=== PATIENT | male | born 1945 | race Caucasian/White ===

== ENCOUNTER → 2016-11-01 | Outpatient (CLI) | payer MEDICARE ==
--- NOTE | 2016-11-01 15:44 | MR ---
EXAMINATION TYPE: MR shoulder RT wo con DATE OF EXAM: 11/01/2016 COMPARISON: NONE HISTORY: unspecified rotator cuff tear, right shoulder pain, lack of motion TECHNIQUE: Multiplanar, multisequence imaging of the right shoulder is performed without contrast. FINDINGS: Exam is suboptimal as is degraded by patient motion artifact. Rotator Cuff: Some increased signal distal supraspinatus and infraspinatus tendons is present without discrete tear. Rotator cuff muscle bulk is preserved. Subscapularis tendon is intact. Acromioclavicular Joint: Acromioclavicular joint is maintained. Distal acromion morphology is preserv ed. Glenohumeral Joint: There is small to moderate-sized glenohumeral joint effusion. Some joint space lo ss is seen. No significant spurring is noted. Labrum: The labrum appears grossly intact given limitation of non-arthrogram study. Biceps Tendon: The long head of biceps is in normal location within bicipital groove. Surrounding flu id may be product of joint effusion. Bone marrow signal: No focal abnormal marrow signal is appreciated. Other: No additional significant abnormality is appreciated. IMPRESSION: Tendinosis of distal supraspinatus and infraspinatus tendons. No full-thickness rotator c uff or labral tear is seen.
== END | disposition home or self-care (01) ==
LOC: RADMRIMAIN 07:35
PROVIDERS: ATTEND Family Medicine
DX: M67.813 Other specified disorders of tendon, right shoulder (principal)

== ENCOUNTER → 2018-01-05 | Outpatient (CLI) | payer MEDICARE ==
[2018-01-05 10:14] LABS: Blood Urea Nitrogen 19 mg/dL (9-20)
--- NOTE | 2018-01-05 11:15 | MR ---
EXAMINATION TYPE: MR brain wo/w con DATE OF EXAM: 01/05/2018 COMPARISON: None HISTORY: Headaches, Hx of prostrate ca in 2012 TECHNIQUE: Multiplanar, multisequence images of the brain and brainstem is performed without and with IV contras t, utilizing 9 mL intravenous Gadavist . FINDINGS: Diffusion weighted images demonstrate no evidence of a recent infarct or other diffusion ab normality. The brain volume is age appropriate. Midline structures demonstrate normal morphology. The craniocervical junction appears within normal limits. Post contrast images demonstrate no abnormal enhancement. The dural venous sinuses appear pa tent. Changes of chronic sinusitis noted with nasal septal deviation. There is mild to moderate generalized degenerative change. Multiple areas of abnormal signal are seen scattered throughout the white matter bilaterally which are nonspecific but most typical of remote m icrovascular ischemia. Single focus of abnormal signal the alondra is nonspecific. No enhancement. Craniocervical junction maintained. Sella turcica has a normal appearance. IMPRESSION: 1. Degenerative and nonspecific white matter changes most typical of remote ischemia. 2. Changes of chronic sinusitis.
== END | disposition home or self-care (01) ==
LOC: RADMRIMAIN 09:41
PROVIDERS: ATTEND Psychiatry & Neurology Neurology
DX: R90.82 White matter disease, unspecified (principal); R51 Headache
CPT/HCPCS: 82565; 84520; 70553; 36415; A9581

== ENCOUNTER → 2019-09-07 | Outpatient (CLI) | payer MEDICARE ==
[2019-09-07 12:36] LABS: African American GFR (CKD) >90 (>60 ml/min/1.73 sqM); Blood Urea Nitrogen 15 mg/dL (9-20); Non-African American GFR(CKD) 87 (>60 ml/min/1.73 sqM)
--- NOTE | 2019-09-07 13:53 | CT ---
EXAMINATION TYPE: CT pelvis w con DATE OF EXAM: 09/07/2019 COMPARISON: 08/01/2014 HISTORY: dysuria, constipation, prostate ca CT DLP: 884.5 mGycm Automated exposure control for dose reduction was used. CONTRAST: CT scan of the pelvis is performed with IV Contrast, patient injected with 100 mL of Isovue 300. FINDINGS- Tiny hypodensity at the lower margin of the spleen is indeterminate due to its small size. Adrenal gl ands normal. Both kidneys demonstrate sub-5 mm hypodensities which are too small to characterize. Lar guero simple appearing renal cysts are seen involving the lower pole of the right kidney. There appear to be increased in size involving the lower pole now measuring 4.5 cm and 18 Hounsfield units compare d to 2.6 cm. Visualized bowel gas pattern nonspecific. Shotty adenopathy is seen in the retroperitoneum and periao rtic region largest lymph node is seen on the left measures a short axis of 5 mm. Aorta of normal mike iber. There does appear to be chronic localized area of eccentric thrombus or chronic dissection unch anged from the prior exam at the level L3-4. No free fluid. There is diffuse bladder wall thickening and there is evidence of prostate metallic se eds. Prostate does appear to be enlarged. Hypertrophic and degenerative changes of the spine. Focal area of sclerosis involving the left iliac bone is stable from prior exam and therefore likely related to bone island. No diagnostic evidence of metastases. Lucency involving the posterior margin the right iliac bone appears to be of gas attenua tion may be related to the adjacent SI joint and arthropathy.. IMPRESSION- 1. Correlate for cystitis with diffuse bladder wall thickening. 2. No pathologic adenopathy or free fluid. Prostate enlargement and metallic seeds are noted. 3. Chronic appearing aortic intimal change at the level L3-L4 could be related to eccentric plaque or a localized tiny area of chronic dissection unchanged from the prior exam of 2014. No evidence of an eurysm.
== END | disposition home or self-care (01) ==
LOC: RADCTMAIN 11:26
PROVIDERS: ATTEND Urology
DX: N40.0 Benign prostatic hyperplasia without lower urinary tract symptoms (principal); C61 Malignant neoplasm of prostate
CPT/HCPCS: 82565; 84520; 72193; 36415; Q9967

== ENCOUNTER → 2019-09-11 | Outpatient (CLI) | payer MEDICARE | END | disposition home or self-care (01) | LOC: LABWHC1 09:06 | PROVIDERS: ATTEND Internal Medicine Gastroenterology | DX: Z11.59 Encounter for screening for other viral diseases (principal) ==

== ENCOUNTER 2019-09-14 08:02 | Day surgery (SDC) | payer MEDICARE ==
[2019-09-13 12:07] VITALS: BMI 33.6
[~2019-09-14 08:02] MED LIST: LACTATED RINGERS 1,000 ML IV SCH
[2019-09-14 08:23] VITALS: RESP 16; TEMP 96.5
[2019-09-14] MEDS ORDERED: LIDOCAINE 1% (10MG/ML) FOR IV START INTRADERMA ONE (08:26)
[2019-09-14] MEDS ORDERED: PROPOFOL 10 MG/ML 20 ML VIAL IV ONE (08:57)
--- NOTE | 2019-09-14 09:14 | P.PCN ---
Date of Procedure: 09/14/19 Procedure(s) Performed: BRIEF HISTORY: Patient is a 73-year-old pleasant white male scheduled for an elective colonoscopy as a part of value should of rectal pain, rectal pressure for the last 6 months duration. Has history of prostate cancer for which she underwent radiation therapy in 2009.He also noticed some change in his bowel habits. He denies any rectal bleeding. PROCEDURE PERFORMED: Colonoscopy. PREOPERATIVE DIAGNOSIS: Rectal pain and rectal pressure of 6 months duration. IV sedation per Anesthesia. PROCEDURE: After informed consent was obtained, the patient, was brought into the endoscopy unit. IV sedation was administered by Anesthesia under continuous monitoring. Digital rectal examination was normal. Initially the Olympus CF-160 flexible video colonoscope was then inserted in the rectum, gradually advanced into the cecum without any difficulty. Careful examination was performed as the scope was gradually being withdrawn. Ileocecal valve and the appendiceal orifice were visualized and appeared normal. Prep was excellent. Mucosa of the cecum, ascending colon, transverse colon, descending colon, sigmoid colon, and rectum appeared normal. Retroflexion was performed in the rectum and small internal hemorrhoids were seen. The patient tolerated the procedure well. IMPRESSION: Normal-appearing colon from rectum to cecum no evidence of colitis or colorectal neoplasia . No evidence of radiation proctitis Small internal hemorrhoids RECOMMENDATIONS: Findings of this examination were discussed with the patient as well as his family. He was advised to be a high-fiber diet and take fiber supplements a regular basis and avoid straining and constipation.
[2019-09-14 09:37] VITALS: BP 118/61; PULSE 78
== END 2019-09-14 09:55 | disposition home or self-care (01) ==
LOC: ORWHC2ENDO 08:02
PROVIDERS: ATTEND Internal Medicine Gastroenterology
DX: K62.89 Other specified diseases of anus and rectum (principal); K64.8 Other hemorrhoids; R19.4 Change in bowel habit; I10 Essential (primary) hypertension; E78.5 Hyperlipidemia, unspecified; E07.9 Disorder of thyroid, unspecified; K21.9 Gastro-esophageal reflux disease without esophagitis; Z85.46 Personal history of malignant neoplasm of prostate; Z92.3 Personal history of irradiation; Z88.2 Allergy status to sulfonamides; Z79.890 Hormone replacement therapy; Z79.899 Other long term (current) drug therapy
CPT/HCPCS: 45378; J2704

== ENCOUNTER → 2020-03-03 | Outpatient (CLI) | payer MEDICARE ==
--- NOTE | 2020-03-04 08:48 | CT ---
EXAMINATION TYPE: CT ChestAbdPelvis w con DATE OF EXAM: 03/03/2020 COMPARISON: 09/07/2019 and 08/08/2015 HISTORY: Abnormal weight loss, 40 lbs in 4 months. Recent suprapubic catheter. Hx prostate ca. CT DLP: 1904 mGycm CONTRAST: CT scan of the chest, abdomen and pelvis is performed with Oral Contrast and with IV Contrast, patien t injected with 100 mL of Isovue 300. CT Chest: LUNGS: The lungs are clear and free of infiltrate or atelectasis. Nodule line noted within the right infrahilar region measures 2.2 cm and requires further evaluation with PET/CT. Additional nodules are identified within the left lower lobe with 2 adjacent pulmonary nodules measuring 1.2 and 1.2 cm res pectively.No additional pulmonary nodules identified. No pleural effusion or CT evidence of interstit ial lung disease. MEDIASTINUM: Anterior mediastinal nodule measures 2.2 cm versus 2.2 cm previously and is unchanged f rom prior study of 08/08/2015. No new nodules are seen. Thoracic aorta is of normal caliber. The hear t is not enlarged. No evidence for mediastinal mass or adenopathy. HILAR STRUCTURES: No evidence for mass. No hilar adenopathy is appreciated. OTHER: No significant abnormality. CONTRAST CT ABDOMEN AND PELVIS FINDINGS: LIVER/GB: No calcified gallstones. No space occupying hepatic lesion. Biliary tree is of normal ca liber. PANCREAS: No inflammation. No distinct mass. SPLEEN: No splenic enlargement. No lesion seen. ADRENALS: No nodule. No thickening. KIDNEYS/BLADDER fullness of the renal collecting systems noted. Renal cystic changes lower pole right kidney unchanged. There is wall thickening of the urinary bladder. Suprapubic catheter is in place. Underlying infection is difficult to exclude. BOWEL: Normal appendix. Normal bowel caliber. No inflammation. GENITAL ORGANS: Prostate seeds are noted to be in place. There is soft tissue mass noted along the un dersurface of the prostate bed measuring 4.8 x 5.0 x 4.0 cm. Tumor recurrence is difficult to exclude . LYMPH NODES: No greater than 1cm abdominal or pelvic lymph nodes are appreciated. AORTA: No significant abnormality. OSSEOUS STRUCTURES: No significant abnormality is seen. OTHER: No significant additional abnormality is seen. IMPRESSION: 1. Along the undersurface of the prostate bed there is new soft tissue mass which is suspicious for t umor 2. There is a nodule within the right infrahilar region which is suspicious for metastatic disease. A dditional nodules are identified within the left lower lobe with 2 adjacent pulmonary nodules measuri ng 1.2 and 1.2 cm respectively. 3. Diffuse urinary bladder wall thickening. Correlate for underlying cystitis. Suprapubic catheter i s in place.
== END | disposition home or self-care (01) ==
LOC: RADCTMAIN 14:33
PROVIDERS: ATTEND Internal Medicine Hematology & Oncology
DX: R91.8 Other nonspecific abnormal finding of lung field (principal); N42.89 Other specified disorders of prostate; N32.89 Other specified disorders of bladder; Z88.2 Allergy status to sulfonamides
CPT/HCPCS: 82565; 84520; 71260; 74177; 36415; Q9967

== ENCOUNTER → 2020-03-07 | Outpatient (CLI) | payer MEDICARE ==
--- NOTE | 2020-03-10 10:41 | PE ---
EXAMINATION TYPE: PET CT fusion skull to thigh DATE OF EXAM: 03/07/2020 COMPARISON: CT March 03, 2020 and older CTs. HISTORY: Abnormal CT, solitary pulmonary nodule. History of prostate cancer diagnosed June 2011. TECHNIQUE: Following the intravenous administration of 11.45 mCi of F-18 FDG, whole body images are performed from the skull base to the midthigh. Images are reviewed on the computer in the coronal, a xial, and sagittal planes. Reconstructed rotating images are created on independent workstation and reviewed on the computer. A noncontrast CT is performed in conjunction with the PET scan. SCAN: Initial Scan FINDINGS: SKULL BASE AND NECK: Focus of hypermetabolic uptake central anterior teeth presumed benign or physio logic but should be correlated with direct physical exam at level of incisors. No additional area of abnormal hypermetabolic uptake. CHEST, MEDIASTINUM, AND HILAR REGION: There is persistent 2.7 x 2.2 cm central right lower lobe nodul e axial image 102, mild hypermetabolic uptake, max SUV is 3.64. There are redemonstration of 2 additional smaller adjacent 1.1 cm left basilar nodules axial image 10 6, these are noted ametabolic. No additional areas of suspicious nodules or hypermetabolic uptake. No abnormal adenopathy. ABDOMEN AND PELVIS: Normal urinary excretion is seen. There is subsequent extension into the suprapub ic ostomy bag also. No suspicious hypermetabolic uptake. No adrenal masses noted. OSSEOUS STRUCTURES: No suspicious hypermetabolic uptake. OTHER CT: Coronary artery calcification is redemonstrated which is noted marker for underlying zaldivar ry artery disease. Some simple appearing thin-walled cyst lower pole of the right kidney redemonstrated measuring near 3 cm in size. Numerous brachytherapy seeds from prostate gland cancer treatment are redemonstrated. Bladder shows m oderate wall thickening and mild to moderate fat stranding similar to prior. IMPRESSION: Suspicious hypermetabolic uptake in the central right lower lobe nodule, neoplasm cannot be excluded. No thoracic adenopathy or metastatic disease seen.
== END | disposition home or self-care (01) ==
LOC: RADPETMAIN 07:58
PROVIDERS: ATTEND Internal Medicine Hematology & Oncology
DX: R91.1 Solitary pulmonary nodule (principal)
CPT/HCPCS: 78815; A9552

== ENCOUNTER 2020-03-24 09:44 | Day surgery (SDC) | payer MEDICARE ==
[2020-03-24 10:41] VITALS: TEMP 97.8
[2020-03-24] MEDS ORDERED: LACTATED RINGERS 1,000 ML IV ONE (10:44)
[2020-03-24] MEDS ORDERED: PROPOFOL 10 MG/ML 20 ML VIAL IV ONE (12:42)
--- NOTE | 2020-03-24 13:02 | P.PCN ---
Date of Procedure: 03/24/20 Procedure(s) Performed: BRIEF HISTORY: Patient is a 74-year-old pleasant male scheduled for an elective sigmoidoscopy as a part of evaluation of severe rectal pain and rectal bleeding and constipation and rectal mass noted on physical examination last week. The patient had a CT of the abdomen and pelvis done that revealed a 5 x 6 cm mass on the undersurface of the prostate. He had a colonoscopy 6 months ago that was unremarkable. PROCEDURE PERFORMED: Flexible sigmoidoscopy with biopsy and snare polypectomy PREOPERATIVE DIAGNOSIS: Rectal Pain/rectal mass. IV sedation per Anesthesia. PROCEDURE: After informed consent was obtained, the patient, was brought into the endoscopy unit. IV sedation was administered by Anesthesia under continuous monitoring. Digital rectal examination revealed an anterior hard rectal mass just proximal to the dentate line.. Initially the Olympus CF-160 flexible video colonoscope was then inserted in the rectum, gradually advanced into the transverse colon without any difficulty. Careful examination was performed as the scope was gradually being withdrawn. Splenic flexure appeared normal. In the proximal descending colon there was a 5 limited polyp that was removed by snare polypectomy., descending colon, sigmoid colon appeared normal. in the distal rectum there was a 3-4 cm mass along the anterior wall of the rectum with the central ulceration and multiple biopsies were done from this area. It appeared as if it was an extrinsic mass that ulcerated into the rectum. Retroflexi Could not be performed. The patient tolerated the procedure well. IMPRESSION: Distal anterior 3-4 cm rectal mass with deep central ulceration with an appearance of extrinsic mass infiltrating into the rectum status post multiple biopsies 5 mm descending colon polyp status post polypectomy RECOMMENDATIONS: Findings of this examination were discussed with the patient as well as his family. Will await the biopsy results and he'll be seen in office in 3-4 days..
[2020-03-24 13:07] VITALS: RESP 16
[2020-03-24 13:30] VITALS: BP 121/61; PULSE 85
[2020-03-24] MEDS ORDERED: LIDOCAINE 1% (10MG/ML) FOR IV START INTRADERMA PRN (13:33)
[2020-03-24] MEDS ORDERED: LACTATED RINGERS 1,000 ML IV SCH (13:33)
== END 2020-03-24 14:20 | disposition home or self-care (01) ==
LOC: ORWHC2ENDO 09:44
PROVIDERS: ATTEND Internal Medicine Gastroenterology
DX: C78.5 Secondary malignant neoplasm of large intestine and rectum (principal); K63.3 Ulcer of intestine; K59.00 Constipation, unspecified; I10 Essential (primary) hypertension; E78.5 Hyperlipidemia, unspecified; E07.9 Disorder of thyroid, unspecified; Z85.46 Personal history of malignant neoplasm of prostate; Z88.2 Allergy status to sulfonamides; Z79.899 Other long term (current) drug therapy; Z79.890 Hormone replacement therapy; Z98.890 Other specified postprocedural states
CPT/HCPCS: 45385; 45380; 88305; 88342; 88341; J2704; 45330; 45331

== ENCOUNTER → 2020-04-15 | Outpatient (CLI) | payer MEDICARE ==
--- NOTE | 2020-04-15 17:33 | ECHOF ---
Referral Reason:[id number] Pre chemo exposure MEASUREMENTS -------- HEIGHT: 167.6 cm WEIGHT: 88.0 kg BP: 128/59 IVSd: 1.3 cm (0.6 - 1.1) LVIDd: 3.2 cm (3.9 - 5.3) LVPWd: 1.2 cm (0.6 - 1.1) IVSs: 1.9 cm LVIDs: 1.5 cm LVPWs: 1.6 cm LAESV Index (A-L): 15.77 ml/m Ao Diam: 2.5 cm (2.0 - 3.7) AV Cusp: 1.2 cm (1.5 - 2.6) LA Diam: 2.8 cm (2.7 - 3.8) MV EXCURSION: 17.007 mm (> 18.000) MV EF SLOPE: 69 mm/s (70 - 150) EPSS: 1.3 cm MV E Boo: 0.72 m/s MV DecT: 184 ms MV A Boo: 1.11 m/s MV E/A Ratio: 0.65 AV maxP.93 mmHg AV meanP.23 mmHg RAP: 5.00 mmHg RVSP: 32.11 mmHg FINDINGS -------- This was a technically difficult study with suboptimal views. The left ventricular size is normal. There is moderate concentric left ventricular hypertrophy. O verall left ventricular systolic function is normal with, an EF between 55 - 60 %. The diastolic fi lling pattern is normal for the age of the patient 12.46. The right ventricle is normal in size. The left atrial size is normal. Normal LA size by volume 22+/-6 ml/m2. The right atrial size is normal. Lumason used Aortic valve is trileaflet and is moderately thickened. There is moderate aortic stenosis present. Peak/mean gradient across the Aortic Valve is 54.93mmHg / 33.23mmHg. The mitral valve is normal. There is trace mitral regurgitation. The tricuspid valve appears structurally normal. Trace tricuspid regurgitation present. Right iveth tricular systolic pressure is normal at < 35 mmHg. There is no pulmonic regurgitation present. The aortic root size is normal. IVC Not well visulized. There is no pericardial effusion. CONCLUSIONS -------- 1. The left ventricular size is normal. 2. There is moderate concentric left ventricular hypertrophy. 3. Overall left ventricular systolic function is normal with, an EF between 55 - 60 %. 4. The diastolic filling pattern is normal for the age of the patient 12.46 5. Aortic valve is trileaflet and is moderately thickened. 6. There is moderate aortic stenosis present. 7. Peak/mean gradient across the Aortic Valve is 54.93mmHg / 33.23mmHg. 8. There is trace mitral regurgitation. 9. Trace tricuspid regurgitation present. 10. There is no pericardial effusion. ACUPRESSURE THERAPIST: Kayy Morley RDCS
== END | disposition home or self-care (01) ==
LOC: RADECHMAIN 13:46
PROVIDERS: ATTEND Internal Medicine Hematology & Oncology
DX: Z01.818 Encounter for other preprocedural examination (principal); I06.8 Other rheumatic aortic valve diseases; I06.0 Rheumatic aortic stenosis; Z88.2 Allergy status to sulfonamides
CPT/HCPCS: C8929; Q9950; 93306

== ENCOUNTER → 2020-04-17 | Day surgery (SDC) | payer MEDICARE ==
[2020-04-10 10:13] VITALS: BMI 29.7
[~2020-04-17] MED LIST changes: +ALBUTEROL NEB (CONC) 2.5 MG/0.5 ML INHALATION ONE; +LIDOCAINE 1% INJ 10MG/ML (20 ML MDV) ONE; +LIDOCAINE 2% (PF) 20 MG/ML 5 ML VIAL INHALATION ONE; +LIDOCAINE VISCOUS 300 MG/15 ML CUP MUCOUS MEM ONE; +PROPOFOL 10 MG/ML 20 ML VIAL IV ONE; +Pre Op ABX Message 1 EACH MISC MISCELLANE ONE; +SODIUM CHLORIDE 0.9% 1,000 ML IV SCH; +SUCCINYLCHOLINE CHLORIDE 100 MG/5 ML SYR IV ONE
--- NOTE | 2020-04-17 12:40 | CT ---
EXAMINATION TYPE: CT Chest dami Chua Protocol DATE OF EXAM: 04/17/2020 COMPARISON: 03/07/2020 HISTORY: Bronchial navigation. CT DLP: 585 mGycm Automated exposure control for dose reduction was used. FINDINGS: LUNGS: The lungs are clear and free of infiltrate or atelectasis. Nodule noted within the right infra hilar region and is stable. Additional nodules are identified within the left lower lobe with 2 adjac ent pulmonary nodules measuring 1.2 and 1.2 cm respectively.No additional pulmonary nodules identifie d. No pleural effusion or CT evidence of interstitial lung disease. MEDIASTINUM: Anterior mediastinal nodule measures 2.2 cm versus 2.2 cm previously and is unchanged fr om prior study of 08/08/2015. No new nodules are seen. Thoracic aorta is of normal caliber. The heart is not enlarged. Atherosclerotic change of the aorta and coronary arteries correlate clinically. HILAR STRUCTURES: No evidence for mass. No hilar adenopathy is appreciated. OTHER: Hypertrophic and degenerative changes of the spine IMPRESSION: 1. Stable pulmonary nodules.
--- NOTE | 2020-04-17 13:30 | P.PCN ---
Date of Procedure: 04/17/20 Preoperative Diagnosis: Right lower lobe nodule Postoperative Diagnosis: same Procedure(s) Performed: Navigational bronchoscopy, transbronchial biopsy of the right lower lobe pulmonary nodule, chest prior to brushing of the right lower lobe pulmonary nodule Anesthesia: JESUSA Surgeon: Dave Cooney Pathology: none sent Condition: stable Disposition: floor Operative Findings: This procedure was done in the operating room. The patient was intubated and placed on a mechanical ventilator. Intubation process was done by FURNACE STOCK INSPECTOR the bedside. The patient has a computed tomography scan of the chest preoperatively using the Veran protocol. The images without loaded into the system and the right lower lobe pulmonary artery was identified and was managed appropriately. All of this information was transferred to a USB and following that into the system Postintubation, the procedure was initiated. The flexible bronchoscope was introduced and orotracheal tube and the procedure was completed as the patient was being adequately oxygenated a mechanical ventilator. The airway inspection was done. Distal trachea, main lucina and bilateral mainstem bronchi were within normal limits. The right upper lobe bronchus was within normal limits. Right middle lobe bronchus was within normal limits. Right lower lobe bronchus was then inspected and the various segments of the right lower lobe were seen and visualized. The medial basilar segment was quite narrowed and inflamed. Nevertheless, there was no endobronchial tumor identified in that involved segment. Examination of the left that included left upper lobe bronchus. Left lower lobe bronchus, lingular segment and all of these airways were patent and within normal limits. Under navigational guidance, the flexible bronchoscope was advanced to the right lower lobe and transrectal biopsy of the right lower lobe pulmonary nodule was done through the medial basilar segment. The nodule was approached and biopsied great accuracy and based on our navigational guidance, fluid and sided nodule at the time of the biopsy. Endobronchial brush ings of the right lower lobe pulmonary was also done using navigational guidance. The procedure was completed. Bronchoscope was removed and the patient was extubated and transferred to recovery in stable condition. The chest x-rays to follow. Biopsy results are to follow. The patient will be discharged once cleared by anesthesia. No endobronchial bleeding. Estimated blood loss was less than 0 mL.
[2020-04-17 14:00] VITALS: TEMP 98
--- NOTE | 2020-04-17 14:18 | XR ---
EXAMINATION TYPE: XR chest 1V portable DATE OF EXAM: 04/17/2020 COMPARISON: 11/14/2014 INDICATION: Postop right lung biopsy TECHNIQUE: Single frontal view of the chest is obtained. FINDINGS: The heart size is normal. The pulmonary vasculature is normal. There is a left lower lobe infiltrate. Mild stranding extends into the right suprahilar region No pne umothorax is evident post bronchoscopy. IMPRESSION: 1. Left lower lobe and right apical stranding. Correlate for infiltrate. 2. No pneumothorax post bronchoscopy biopsy.
[2020-04-17 14:35] VITALS: RESP 17
[2020-04-17 14:41] VITALS: BP 160/82; PULSE 86
== END | disposition home or self-care (01) ==
LOC: ORWHC2ENDO 09:45
PROVIDERS: ATTEND Internal Medicine Critical Care Medicine
DX: D64.89 Other specified anemias (principal); R59.1 Generalized enlarged lymph nodes; K62.9 Disease of anus and rectum, unspecified; E55.9 Vitamin D deficiency, unspecified; E03.9 Hypothyroidism, unspecified; E78.5 Hyperlipidemia, unspecified; I10 Essential (primary) hypertension; C61 Malignant neoplasm of prostate; Z82.49 Family history of ischemic heart disease and other diseases of the circulatory system; Z83.42 Family history of familial hypercholesterolemia; Z90.89 Acquired absence of other organs; Z98.890 Other specified postprocedural states; Z79.890 Hormone replacement therapy; Z79.899 Other long term (current) drug therapy; Z88.2 Allergy status to sulfonamides
CPT/HCPCS: 88104; 88305; 88173; 88342; 88341; 71045; 71250; 31628; 31623; 31627; J2001; J0330; J2704; 31625; 31629

== ENCOUNTER 2020-04-30 19:20 | Emergency (ER) | payer MEDICARE ==
[2020-04-30 19:54] VITALS: TEMP 97.4
--- NOTE | 2020-04-30 21:44 | ED ---
Male Urogenital HPI - General Chief complaint: Urogenital Stated complaint: Catheter Issue Time Seen by Provider: 04/30/20 20:33 Source: patient, family Mode of arrival: ambulatory - History of Present Illness Initial comments: Patient is a 74-year-old male presenting to the emergency Department with complaints of his catheter not draining. Patient states he had a suprapubic c atheter placed in February secondary to being treated for bladder cancer. Patient's urologist is Dr. Hardy, and oncologist is Dr. Wen. Patient states over the past 24 hours he does not believe his catheter is draining and he is having some drainage from his urethra. Patient states that is normal for him to have blood in his urine and passing a few clots. Patient denies any fever or chills, no significant abdominal pain, some mild pressure present. He denies any chest pain or short of breath. He has no further complaints at this time. - Related Data Home Medications Medication Instructions Recorded Confirmed Levothyroxine Sodium 125 mcg PO QAM 11/15/14 04/10/20 Metoprolol Tartrate 25 mg PO 1800 11/15/14 04/17/20 Multivitamin [Men's Multi-Vitamin] 1 tab PO DAILY 11/15/14 04/10/20 Cholecalciferol [Vitamin D3] 6,000 unit PO DAILY 12/30/15 04/10/20 Fish Oil/Dha/Epa [Fish Oil 1,200 1 tab PO DAILY 12/30/15 04/10/20 mg Fish Oil] Rosuvastatin Calcium [Crestor] 10 mg PO HS 12/30/15 04/10/20 lisinopriL [Zestril] 10 mg PO PC-LUNCH 12/30/15 04/10/20 Isosorbide Mononitrate [Isosorbide 30 mg PO QAM 09/13/19 04/10/20 Mononitrate ER] Sennosides [Senna] 8.6 mg PO DAILY 04/10/20 04/10/20 polyethylene glycoL 3350 [Miralax] 17 gm PO DAILY 04/10/20 04/10/20 Allergies Allergy/AdvReac Type Severity Reaction Status Date / Time Sulfa (Sulfonamide Allergy Itching/marko Verified 04/30/20 19:54 Antibiotics) h Review of Systems ROS Statement: Those systems with pertinent positive or pertinent negative responses have been documented in the HPI. ROS Other: All systems not noted in ROS Statement are negative. Past Medical History Past Medical History: Cancer, Hyperlipidemia, Hypertension, Thyroid Disorder Additional Past Medical History / Comment(s): PROSTATE CANCER WITH SEED IMPLANTS (07/06/2011), LOW THYROID, ANEMIA, HEMORRHOIDS, constipation. 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 suprapubic catheter placed Feb 19, 2020 History of Any Multi-Drug Resistant Organisms: None Reported Past Surgical History: Heart Catheterization Additional Past Surgical History / Comment(s): PROSTATE SEED IMPLANTS, COLONOSCOPY. Past Anesthesia/Blood Transfusion Reactions: No Reported Reaction, Motion Sickness Past Psychological History: No Psychological Hx Reported Smoking Status: Never smoker Past Alcohol Use History: Occasional Past Drug Use History: None Reported - Past Family History Mother Family Medical History: Hypertension Sister(s) Family Medical History: Cancer General Exam - General Exam Comments Initial Comments: GENERAL: Patient is well-developed and well-nourished. Patient is nontoxic and in no acute distress. HEAD: Atraumatic, normocephalic. EYES: Pupils equal round and reactive to light, extraocular movements intact, sclera anicteric, conjunctiva are normal. Eyelids were unremarkable. ENT: TMs normal, nares patent, oropharynx clear without exudates. Moist mucous membranes. NECK: Normal range of motion, supple without lymphadenopathy or JVD. LUNGS: Unlabored respirations. Breath sounds clear to auscultation bilaterally and equal. No wheezes rales or rhonchi. HEART: Regular rate and rhythm without murmurs, rubs or gallops. ABDOMEN: Soft, nontender, normoactive bowel sounds. No guarding, no rebound. No masses appreciated. : Suprapubic catheter in place, no signs of infection. Patient seems to be having some drainage through his urethra as well. MUSCULOSKELETAL: Normal extremities with adequate strength and normal range of motion, no pitting or edema. No clubbing or cyanosis. NEUROLOGICAL: Patient is alert and oriented x 3. Motor and sensory are also intact. Cranial nerves II through XII grossly intact. Symmetrical smile. Normal speech, normal gait. PSYCH: Normal mood, normal affect. SKIN: Warm, Dry, normal turgor, no rashes or lesions noted. Course Vital Signs 04/30/20 04/30/20 19:38 21:58 Temperature 97.4 F L Pulse Rate 101 H 89 Respiratory 20 17 Rate Blood Pressure 162/74 151/70 O2 Sat by Pulse 64 L 97 Oximetry Medical Decision Making - Medical Decision Making Patient is a 74-year-old male here for his suprapubic catheter not draining and leakage through his urethra. No fevers or chills, no pain. We were able to flush the catheter, multiple small clots were present. Patient's catheter is draining as normal now. He is stable for discharge. He'll follow-up with his urologist. Patient is in agreement with this plan and care. Disposition Clinical Impression: Suprapubic catheter dysfunction Disposition: HOME SELF-CARE Condition: Stable Instructions (If sedation given, give patient instructions): How to Care for Your Suprapubic Catheter (DC) Additional Instructions: Please return to the Emergency Department if symptoms worsen or any other concerns. Please follow up with urologist as discussed. Is patient prescribed a controlled substance at d/c from ED?: No Referrals: Satish Alcala DO [Primary Care Provider] - 1-2 days Grover Hardy MD [STAFF PHYSICIAN] - 1-2 days
[2020-04-30 22:01] VITALS: BP 151/70; PULSE 89; RESP 17
== END 2020-04-30 21:58 | disposition home or self-care (01) ==
LOC: EC 19:20
DX: T83.198A Other mechanical complication of other urinary devices and implants, initial encounter (principal); C67.9 Malignant neoplasm of bladder, unspecified; E78.5 Hyperlipidemia, unspecified; I10 Essential (primary) hypertension; E07.9 Disorder of thyroid, unspecified; Z79.899 Other long term (current) drug therapy; Z79.890 Hormone replacement therapy; Z88.2 Allergy status to sulfonamides; Z85.46 Personal history of malignant neoplasm of prostate
CPT/HCPCS: 99283

== ENCOUNTER 2020-06-03 12:20 | Emergency (ER) | payer MEDICARE ==
[2020-06-03 12:48] VITALS: TEMP 98.8
[2020-06-03] MEDS ORDERED: SODIUM CHLORIDE 0.9% 1,000 ML IV STA (13:41)
[2020-06-03] MEDS ORDERED: ACETAMINOPHEN TAB 500 MG TAB PO STA (13:41)
--- NOTE | 2020-06-03 13:52 | ED ---
General Adult HPI - General Chief complaint: Abdominal Pain Stated complaint: intestinal pain, sent from Dr nunez Time Seen by Provider: 06/03/20 13:35 Source: patient, family, RN notes reviewed, old records reviewed Mode of arrival: wheelchair Limitations: no limitations - History of Present Illness Initial comments: 74-year-old male presenting for evaluation of weakness, dehydration and diarrhea. Patient was sent in from the oncologist office. 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 He reports fever and chills as well as chronic diarrhea. He has been using Lomotil with minimal improvement. He reports generalized abdominal pain. No cough no dyspnea. No chest pain. He has a poor appetite. No vomiting. He does have remote history of prostate cancer. - Related Data Home Medications Medication Instructions Recorded Confirmed Levothyroxine Sodium 125 mcg PO QAM 11/15/14 04/10/20 Metoprolol Tartrate 25 mg PO 1800 11/15/14 04/17/20 Multivitamin [Men's Multi-Vitamin] 1 tab PO DAILY 11/15/14 04/10/20 Cholecalciferol [Vitamin D3] 6,000 unit PO DAILY 12/30/15 04/10/20 Fish Oil/Dha/Epa [Fish Oil 1,200 1 tab PO DAILY 12/30/15 04/10/20 mg Fish Oil] Rosuvastatin Calcium [Crestor] 10 mg PO HS 12/30/15 04/10/20 lisinopriL [Zestril] 10 mg PO PC-LUNCH 12/30/15 04/10/20 Isosorbide Mononitrate [Isosorbide 30 mg PO QAM 09/13/19 04/10/20 Mononitrate ER] Sennosides [Senna] 8.6 mg PO DAILY 04/10/20 04/10/20 polyethylene glycoL 3350 [Miralax] 17 gm PO DAILY 04/10/20 04/10/20 Allergies Allergy/AdvReac Type Severity Reaction Status Date / Time Sulfa (Sulfonamide Allergy Itching/marko Verified 06/03/20 12:43 Antibiotics) h Review of Systems ROS Statement: Those systems with pertinent positive or pertinent negative responses have been documented in the HPI. ROS Other: All systems not noted in ROS Statement are negative. Past Medical History Past Medical History: Cancer, Hyperlipidemia, Hypertension, Thyroid Disorder Additional Past Medical History / Comment(s): PROSTATE CANCER WITH SEED IMPLANTS (07/06/2011), LOW THYROID, ANEMIA, HEMORRHOIDS, constipation. 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 suprapubic catheter placed Feb 19, 2020 History of Any Multi-Drug Resistant Organisms: None Reported Past Surgical History: Heart Catheterization Additional Past Surgical History / Comment(s): PROSTATE SEED IMPLANTS, COLONOSCOPY. Past Anesthesia/Blood Transfusion Reactions: No Reported Reaction, Motion Sickness Past Psychological History: No Psychological Hx Reported Smoking Status: Never smoker Past Alcohol Use History: Occasional Past Drug Use History: None Reported - Past Family History Mother Family Medical History: Hypertension Sister(s) Family Medical History: Cancer General Exam Limitations: no limitations General appearance: alert, lethargic Head exam: Present: atraumatic, normocephalic Eye exam: Present: normal appearance, PERRL ENT exam: Present: mucous membranes dry Neck exam: Present: normal inspection. Absent: tenderness, meningismus Respiratory exam: Present: normal lung sounds bilaterally. Absent: respiratory distress, wheezes Cardiovascular Exam: Present: normal rhythm, tachycardia GI/Abdominal exam: Present: soft, distended, tenderness, other (Suprapubic catheter). Absent: guarding, rebound exam: Present: scrotal swelling, other (Fullness in the perineum and scrotum, no erythema) Extremities exam: Present: normal inspection, normal capillary refill Neurological exam: Present: alert, oriented X3, CN II-XII intact. Absent: motor sensory deficit Psychiatric exam: Present: normal affect, normal mood Skin exam: Present: warm, dry, intact, pallor. Absent: cyanosis, diaphoretic Course Vital Signs 06/03/20 06/03/20 06/03/20 12:43 14:20 15:09 Temperature 98.8 F Pulse Rate 110 H 115 H 103 H Respiratory 18 20 18 Rate Blood Pressure 103/55 132/67 113/69 O2 Sat by Pulse 100 95 97 Oximetry 06/03/20 15:59 Temperature Pulse Rate 97 Respiratory 18 Rate Blood Pressure 115/52 O2 Sat by Pulse 97 Oximetry Medical Decision Making - Medical Decision Making 74-year-old male with remote history of prostate cancer, current bladder cancer presenting with generalized abdominal Pain, weakness. Patient is evaluated, appears pale, he has shaking chills, his abdomen is distended, tender to palpation. Workup is initiated, he has a profound leukocytosis, 22,000, he has a hemoglobin 6.9 which is transfused. He has a lactic acid of 4.2. CT is performed which shows concern for erosion of the rectum and prostate with fecal material extending into the scrotum and perineum with emphysema changes. He started on broad-spectrum antibiotics including Zosyn, vancomycin, and clindamycin. He is transfused one unit of packed RBCs. As well as 2 L of IV hydration. His blood pressure and heart rate improved, he is hemodynamically stable. I did discuss case with Dr. Beckford, covering for urology who recommends transfer to higher level of care. I discussed case with Lar[facility] for oncology who agrees with transfer. I discussed case with ER physician at [facility] in [place], Dr. Campbell thayer, she does except transfer. - Lab Data Result diagrams: 06/03/20 14:13 06/03/20 14:13 Lab Results 06/03/20 06/03/20 06/03/20 Range/Units 13:41 14:13 14:13 WBC 22.0 H (3.8-10.6) k/uL RBC 2.82 L (4.30-5.90) m/uL Hgb 6.9 L* (13.0-17.5) gm/dL Hct 22.3 L (39.0-53.0) % MCV 79.2 L (80.0-100.0) fL MCH 24.3 L (25.0-35.0) pg MCHC 30.7 L (31.0-37.0) g/dL RDW 17.5 H (11.5-15.5) % Plt Count 560 H (150-450) k/uL MPV 7.4 Neutrophils % (Manual) 71 % Band Neuts % (Manual) 14 % Lymphocytes % (Manual) 8 % Monocytes % (Manual) 3 % Metamyelocytes % 2 % Myelocytes % 3 % Neutrophils # (Manual) 18.70 H (1.3-7.7) k/uL Lymphocytes # (Manual) 1.76 (1.0-4.8) k/uL Monocytes # (Manual) 0.66 (0-1.0) k/uL Metamyelocytes # (Man) 0.44 H (0) k/uL Myelocytes # (Manual) 0.66 H (0) k/uL Nucleated RBCs 0 (0-0) /100 WBC Manual Slide Review Performed Toxic Granulation Present Hypochromasia Slight Poikilocytosis (manual Present Anisocytosis Slight Microcytosis Slight PT 9.7 (9.0-12.0) sec INR 0.9 (<1.2) APTT 21.6 L (22.0-30.0) sec Sodium (137-145) mmol/L Potassium (3.5-5.1) mmol/L Chloride (98-107) mmol/L Carbon Dioxide (22-30) mmol/L Anion Gap mmol/L BUN (9-20) mg/dL Creatinine (0.66-1.25) mg/dL Est GFR (CKD-EPI)AfAm (>60 ml/min/1.73 sqM) Est GFR (CKD-EPI)NonAf (>60 ml/min/1.73 sqM) Glucose (74-99) mg/dL Plasma Lactic Acid Bennie (0.7-2.0) mmol/L Calcium (8.4-10.2) mg/dL Total Bilirubin (0.2-1.3) mg/dL AST (17-59) U/L ALT (4-49) U/L Alkaline Phosphatase (38-126) U/L Total Protein (6.3-8.2) g/dL Albumin (3.5-5.0) g/dL Amylase (30-110) U/L Lipase (23-300) U/L C. difficile (EIA) Intrp (Negative) Coronavirus (PCR) Not Detected (Not Detectd) Blood Type Recheck Bld Type Recheck Status Spec Expiration Date 06/03/20 06/03/20 06/03/20 Range/Units 14:13 14:13 14:13 WBC (3.8-10.6) k/uL RBC (4.30-5.90) m/uL Hgb (13.0-17.5) gm/dL Hct (39.0-53.0) % MCV (80.0-100.0) fL MCH (25.0-35.0) pg MCHC (31.0-37.0) g/dL RDW (11.5-15.5) % Plt Count (150-450) k/uL MPV Neutrophils % (Manual) % Band Neuts % (Manual) % Lymphocytes % (Manual) % Monocytes % (Manual) % Metamyelocytes % % Myelocytes % % Neutrophils # (Manual) (1.3-7.7) k/uL Lymphocytes # (Manual) (1.0-4.8) k/uL Monocytes # (Manual) (0-1.0) k/uL Metamyelocytes # (Man) (0) k/uL Myelocytes # (Manual) (0) k/uL Nucleated RBCs (0-0) /100 WBC Manual Slide Review Toxic Granulation Hypochromasia Poikilocytosis (manual Anisocytosis Microcytosis PT (9.0-12.0) sec INR (<1.2) APTT (22.0-30.0) sec Sodium 134 L (137-145) mmol/L Potassium 5.2 H (3.5-5.1) mmol/L Chloride 100 (98-107) mmol/L Carbon Dioxide 21 L (22-30) mmol/L Anion Gap 13 mmol/L BUN 30 H (9-20) mg/dL Creatinine 1.61 H (0.66-1.25) mg/dL Est GFR (CKD-EPI)AfAm 49 (>60 ml/min/1.73 sqM) Est GFR (CKD-EPI)NonAf 42 (>60 ml/min/1.73 sqM) Glucose 126 H (74-99) mg/dL Plasma Lactic Acid Bennie 4.2 H* (0.7-2.0) mmol/L Calcium 8.2 L (8.4-10.2) mg/dL Total Bilirubin 0.4 (0.2-1.3) mg/dL AST 36 (17-59) U/L ALT 33 (4-49) U/L Alkaline Phosphatase 203 H (38-126) U/L Total Protein 5.9 L (6.3-8.2) g/dL Albumin 2.7 L (3.5-5.0) g/dL Amylase 39 (30-110) U/L Lipase 28 (23-300) U/L C. difficile (EIA) Intrp Negative (Negative) Coronavirus (PCR) (Not Detectd) Blood Type Recheck Bld Type Recheck Status Spec Expiration Date 06/03/20 Range/Units 15:55 WBC (3.8-10.6) k/uL RBC (4.30-5.90) m/uL Hgb (13.0-17.5) gm/dL Hct (39.0-53.0) % MCV (80.0-100.0) fL MCH (25.0-35.0) pg MCHC (31.0-37.0) g/dL RDW (11.5-15.5) % Plt Count (150-450) k/uL MPV Neutrophils % (Manual) % Band Neuts % (Manual) % Lymphocytes % (Manual) % Monocytes % (Manual) % Metamyelocytes % % Myelocytes % % Neutrophils # (Manual) (1.3-7.7) k/uL Lymphocytes # (Manual) (1.0-4.8) k/uL Monocytes # (Manual) (0-1.0) k/uL Metamyelocytes # (Man) (0) k/uL Myelocytes # (Manual) (0) k/uL Nucleated RBCs (0-0) /100 WBC Manual Slide Review Toxic Granulation Hypochromasia Poikilocytosis (manual Anisocytosis Microcytosis PT (9.0-12.0) sec INR (<1.2) APTT (22.0-30.0) sec Sodium (137-145) mmol/L Potassium (3.5-5.1) mmol/L Chloride (98-107) mmol/L Carbon Dioxide (22-30) mmol/L Anion Gap mmol/L BUN (9-20) mg/dL Creatinine (0.66-1.25) mg/dL Est GFR (CKD-EPI)AfAm (>60 ml/min/1.73 sqM) Est GFR (CKD-EPI)NonAf (>60 ml/min/1.73 sqM) Glucose (74-99) mg/dL Plasma Lactic Acid Bennie (0.7-2.0) mmol/L Calcium (8.4-10.2) mg/dL Total Bilirubin (0.2-1.3) mg/dL AST (17-59) U/L ALT (4-49) U/L Alkaline Phosphatase (38-126) U/L Total Protein (6.3-8.2) g/dL Albumin (3.5-5.0) g/dL Amylase (30-110) U/L Lipase (23-300) U/L C. difficile (EIA) Intrp (Negative) Coronavirus (PCR) (Not Detectd) Blood Type Recheck No Previous Record Bld Type Recheck Status CABO Indicated Spec Expiration Date 06/06/2020 - 2354 Disposition Clinical Impression: Bladder cancer, Sepsis, Abscess of perineum Disposition: OTHER INSTITUTION NOT DEFINED Condition: Serious Is patient prescribed a controlled substance at d/c from ED?: No Referrals: Satish Alcala DO [Primary Care Provider] - 1-2 days Time of Disposition: 16:08 - Out of Hospital Transfer - Req. Specs Out of Hospital Transfer - Requested Specifics: Other Emergency Center (Transfer to [facility])
[2020-06-03] MEDS: MORPHINE SULFATE 4 MG/ML SYRINGE IV STA ×2 (14:22→16:50)
[2020-06-03 14:38] LABS: Albumin 2.7 g/dL (3.5-5.0); Calcium 8.2 mg/dL (8.4-10.2); Potassium 5.2 mmol/L (3.5-5.1); Total Bilirubin 0.4 mg/dL (0.2-1.3); Total Protein 5.9 g/dL (6.3-8.2)
[2020-06-03] MEDS ORDERED: SODIUM CHLORIDE 0.9% 1,000 ML IV ONE (14:49)
[2020-06-03 14:58] LABS: Anisocytosis Slight; HCT 22.3 % (39.0-53.0); Hypochromasia Slight; MCH 24.3 pg (25.0-35.0); MCHC 30.7 g/dL (31.0-37.0); MCV 79.2 fL (80.0-100.0); Mean Platelet Volume 7.4; Microcytosis Slight; Platelet Count 560 k/uL (150-450); RBC 2.82 m/uL (4.30-5.90); RDW 17.5 % (11.5-15.5)
[2020-06-03 15:00] LABS: INR 0.9 (<1.2); Prothrombin Time 9.7 sec (9.0-12.0)
[2020-06-03 15:02] LABS: HGB 6.9 gm/dL (13.0-17.5)
[2020-06-03 15:05] LABS: Partial Thromboplastin Time 21.6 sec (22.0-30.0)
[2020-06-03 15:10] VITALS: RESP 18
[2020-06-03] MEDS ORDERED: PIPERACILLIN-TAZOBACTAM 3.375 GM in SODIUM CHLORIDE 0.9% 100 ML IVPB STA (15:23)
[2020-06-03] MEDS ORDERED: VANCOMYCIN IV PER PHARMACY 1 EACH MISC MISCELLANE PRN (15:23)
[2020-06-03 15:28] LABS: Band Neutrophils % 14 %; Lymphocytes # (M) 1.76 k/uL (1.0-4.8); Metamyelocytes # (M) 0.44 k/uL (0); Metamyelocytes % 2 %; Monocytes # (M) 0.66 k/uL (0-1.0); Myelocytes # (M) 0.66 k/uL (0); Myelocytes % 3 %; Neutrophils % (M) 71 %; Nucleated Red Blood Cells 0 /100 WBC (0-0); Total Cells Counted 200
[2020-06-03] MEDS ORDERED: VANCOMYCIN 1,500 MG in SODIUM CHLORIDE 0.9% 250 ML IVPB STA (15:28)
--- NOTE | 2020-06-03 15:28 | CT ---
EXAMINATION TYPE: CT abdomen pelvis wo con DATE OF EXAM: 06/03/2020 COMPARISON: CT 03/03/2020, PET/CT 03/07/2020 HISTORY: Abdominal pain. Rectal cancer. CT DLP: 740.7 mGycm Automated exposure control for dose reduction was used. TECHNIQUE: Helical acquisition of images from the lung bases through the pelvis. FINDINGS: Lack of intravenous contrast could compromise sensitivity. LUNG BASES: No significant abnormality is appreciated. AORTA: No significant abnormality is appreciataed. LIVER/GB: No significant abnormality is appreciated. PANCREAS: No significant abnormality is seen. SPLEEN: No significant abnormality is seen. ADRENALS: No significant abnormality is seen. KIDNEYS: Bilateral hydronephrosis has progressed, there is bilateral hydroureter. Cortical cyst assoc iated with the inferior margin of the right kidney. REPRODUCTIVE ORGANS: Prostate seeds are present within the pelvis. There is extensive abnormal emphy sematous change involving the right lateral aspect and inferior margin extending to the left side of the prostate and extending into the peroneum with involvement of the rectum and anus. Mottled density extends anteriorly towards the scrotum and base of the penis. URINARY BLADDER: Christie catheter is present within the bladder, there is an air-fluid level and abnor mal thickening of the urinary bladder.. BOWEL: Abnormal thickening of the rectum is present, and this is not identifiable, is abnormal thick ening and extension of air within the soft tissues into the perineum, distortion of tissue planes FREE AIR: No Free Air is visible. ASCITES: None visible. PELVIC ADENOPATHY: Soft tissue nodules present in the left hemipelvis on axial image 68 measuring 2. 2 cm and was present and hypermetabolic on prior PET/CT. RETROPERITONEAL ADENOPATHY: No Retroperitoneal Adenopathy visible. OSSEOUS STRUCTURES: Some radiation-induced lucency is suspected along the pubic symphysis, there is fracture of the inferior left pubic ramus likely pathologic, the right pubic ramus shows probable ero praveen and possible fracture at the inferior margin. IMPRESSION: THERE IS LIKELY TISSUE BREAKDOWN FROM THE RECTUM WITH FECAL MATERIAL EXTENDING AROUND THE PROSTATE AN D INTO THE PERINEUM, ALONG THE BASE OF THE PENIS AND TOWARDS THE SCROTUM. FINDINGS MAY BE SECONDARY T O PROSTATE CANCER TREATMENT, PROBABLE PATHOLOGIC FRACTURES OF THE INFERIOR PUBIC RAMI, FINDINGS DISCU SSED WITH REFERRING CLINICIAN AT THE TIME OF INTERPRETATION.
[2020-06-03 15:29] LABS: Poikilocytosis (M) Present; Toxic Granulation Present
[2020-06-03] MEDS ORDERED: CLINDAMYCIN 600 MG in DEXTROSE 5% IN WATER 50 ML IVPB STA ×2 (15:56)
[2020-06-03] MEDS ORDERED: SODIUM CHLORIDE 0.9% 1,000 ML IV SCH (16:00)
[2020-06-03 17:04] VITALS: BP 118/54; PULSE 88
[2020-06-04] MEDS ORDERED: PIPERACILLIN-TAZOBACTAM 3.375 GM in SODIUM CHLORIDE 0.9% 100 ML IVPB SCH ×2
[2020-06-04] MEDS ORDERED: VANCOMYCIN 1,500 MG in SODIUM CHLORIDE 0.9% 250 ML IVPB SCH (09:00)
== END 2020-06-03 17:03 | disposition other institution (70) ==
LOC: EC 12:20
DX: A41.9 Sepsis, unspecified organism (principal); L02.215 Cutaneous abscess of perineum; C67.9 Malignant neoplasm of bladder, unspecified; E78.5 Hyperlipidemia, unspecified; I10 Essential (primary) hypertension; E07.9 Disorder of thyroid, unspecified; Z20.822 Contact with and (suspected) exposure to COVID-19; Z79.890 Hormone replacement therapy; Z79.899 Other long term (current) drug therapy; Z88.2 Allergy status to sulfonamides; Z92.21 Personal history of antineoplastic chemotherapy; Z85.46 Personal history of malignant neoplasm of prostate
CPT/HCPCS: 86900; 86901; 80053; 82150; 83605; 83690; 85025; 85610; 85730; 86850; 86920; 87040; 87324; 87045; 87077; 87186; 87046; 87635; 74176; 99285; 96365; 96367; 96375; 96361 ×2; J2543; J3370; J2270; 36430

== ENCOUNTER 2020-07-10 07:10 | Inpatient (IN) | payer MEDICARE ==
--- NOTE | 2020-07-10 07:34 | ED ---
General Adult HPI - General Chief complaint: GI Bleed Stated complaint: GI bleed Time Seen by Provider: 07/10/20 07:10 Source: patient, EMS, RN notes reviewed, old records reviewed Mode of arrival: EMS Limitations: no limitations - History of Present Illness Initial comments: This is a 74-year-old male who presents emergency Department because he is hav ing blood in his colostomy bag as well as urostomy bag. Patient states he does feel weak but he is experiencing no pain. Patient states that 6 weeks ago he had surgery to fix what sounded like a fistula from his colon to his bladder. Patient states he has a rectal tumor however they did not address a tumor during surgery according to the patient. Patient also states she is a DVT and is on eliquis. Patient denies any shortness of breath or chest pain. Patient denies any vomiting. Patient denies any fever chills. - Related Data Home Medications Medication Instructions Recorded Confirmed Levothyroxine Sodium 125 mcg PO QAM 11/15/14 06/03/20 Metoprolol Tartrate 25 mg PO DAILY 11/15/14 06/03/20 Multivitamin [Men's Multi-Vitamin] 1 tab PO DAILY 11/15/14 06/03/20 Cholecalciferol [Vitamin D3] 6,000 unit PO DAILY 12/30/15 06/03/20 Rosuvastatin Calcium [Crestor] 10 mg PO HS 12/30/15 06/03/20 Isosorbide Mononitrate [Isosorbide 30 mg PO QAM 09/13/19 06/03/20 Mononitrate ER] polyethylene glycoL 3350 [Miralax] 17 gm PO DAILY PRN 04/10/20 06/03/20 Acetaminophen-Codeine 300-30mg 1 - 2 tab PO Q4-6H PRN 06/03/20 06/03/20 [Tylenol w/codeine #3] Dexamethasone [Decadron] 8 mg PO BID PRN 06/03/20 06/03/20 Diphenox-Atrop 2.5-0.025 mg 1 - 2 tab PO QID PRN 06/03/20 06/03/20 [Lomotil] Docusate [Colace] 100 mg PO BID PRN 06/03/20 06/03/20 HYDROcodone/APAP 10-325MG [[place] 1 tab PO Q4HR PRN 06/03/20 06/03/20 10-325] Omeprazole 40 mg PO DAILY 06/03/20 06/03/20 Ondansetron Odt [Zofran Odt] 4 mg PO Q6H PRN 06/03/20 06/03/20 Allergies Allergy/AdvReac Type Severity Reaction Status Date / Time Sulfa (Sulfonamide Allergy Itching/marko Verified 07/10/20 07:19 Antibiotics) h Review of Systems ROS Statement: Those systems with pertinent positive or pertinent negative responses have been documented in the HPI. ROS Other: All systems not noted in ROS Statement are negative. Past Medical History Past Medical History: Cancer, Hyperlipidemia, Hypertension, Thyroid Disorder Additional Past Medical History / Comment(s): PROSTATE CANCER WITH SEED IMPLANTS (07/06/2011), LOW THYROID, ANEMIA, HEMORRHOIDS, constipation. 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 suprapubic catheter placed Feb 19, 2020 History of Any Multi-Drug Resistant Organisms: None Reported Past Surgical History: Heart Catheterization Additional Past Surgical History / Comment(s): PROSTATE SEED IMPLANTS, COLONOSCOPY. Past Anesthesia/Blood Transfusion Reactions: No Reported Reaction, Motion Sickness Past Psychological History: No Psychological Hx Reported Smoking Status: Never smoker Past Alcohol Use History: Occasional Past Drug Use History: None Reported - Past Family History Mother Family Medical History: Hypertension Sister(s) Family Medical History: Cancer General Exam - General Exam Comments Initial Comments: GENERAL: Patient is well-developed and well-nourished. Patient is nontoxic and well-hydrated and is in no acute distress. ENT: Neck is soft and supple. No significant lymphadenopathy is noted. Oropharynx is clear. Moist mucous membranes. Neck has full range of motion without eliciting any pain. EYES: The sclera were anicteric and conjunctiva were pink and moist. Extraocular move ments were intact and pupils were equal round and reactive to light. Eyelids were unremarkable. PULMONARY: Unlabored respirations. Good breath sounds bilaterally. No audible rales rhonchi or wheezing was noted. CARDIOVASCULAR: There is a regular rate and rhythm without any murmurs gallops or rubs. ABDOMEN: Soft and nontender with normal bowel sounds. Patient has some leakage that is bloody in nature from the urostomy site. SKIN: Patient's skin is very pale NEUROLOGIC: Patient is alert and oriented x3. Cranial nerves II through XII are grossly intact. Motor and sensory are also intact. Normal speech, volume and content. Symmetrical smile. MUSCULOSKELETAL: Normal extremities with adequate strength and full range of motion. No lower extremity swelling or edema. No calf tenderness. LYMPHATICS: No significant lymphadenopathy is noted PSYCHIATRIC: Normal psychiatric evaluation. Limitations: no limitations Course Vital Signs 07/10/20 07/10/20 07/10/20 07:12 07:23 07:30 Temperature 98.8 F Pulse Rate 92 88 Respiratory 18 18 Rate Blood Pressure 144/82 138/78 O2 Sat by Pulse 98 95 95 Oximetry 07/10/20 07/10/20 07/10/20 08:00 08:30 09:00 Temperature Pulse Rate 86 85 85 Respiratory 16 18 16 Rate Blood Pressure 150/75 150/78 158/80 O2 Sat by Pulse 93 L 95 94 L Oximetry Medical Decision Making - Medical Decision Making Patient's hemoglobin was 8.5 which was stable so I did not give him any packed red blood cells. I spoke with Dr. martinez he agreed to admit the patient admitted the patient wrote admitting orders - Lab Data Result diagrams: 07/10/20 07:33 07/10/20 07:33 Lab Results 07/10/20 07/10/20 07/10/20 Range/Units 07:33 07:33 07:33 WBC 9.5 (3.8-10.6) k/uL RBC 3.06 L (4.30-5.90) m/uL Hgb 8.5 L D (13.0-17.5) gm/dL Hct 26.2 L (39.0-53.0) % MCV 85.8 D (80.0-100.0) fL MCH 27.8 (25.0-35.0) pg MCHC 32.4 (31.0-37.0) g/dL RDW 18.1 H (11.5-15.5) % Plt Count 343 (150-450) k/uL MPV 7.0 Neutrophils % 70 % Lymphocytes % 19 % Monocytes % 7 % Eosinophils % 2 % Basophils % 0 % Neutrophils # 6.7 (1.3-7.7) k/uL Lymphocytes # 1.8 (1.0-4.8) k/uL Monocytes # 0.6 (0-1.0) k/uL Eosinophils # 0.2 (0-0.7) k/uL Basophils # 0.0 (0-0.2) k/uL Hypochromasia Slight Poikilocytosis Slight Anisocytosis Slight PT 12.0 (9.0-12.0) sec INR 1.2 H (<1.2) APTT 25.9 (22.0-30.0) sec Sodium 134 L (137-145) mmol/L Potassium 3.7 (3.5-5.1) mmol/L Chloride 99 (98-107) mmol/L Carbon Dioxide 30 (22-30) mmol/L Anion Gap 5 mmol/L BUN 20 (9-20) mg/dL Creatinine 1.30 H (0.66-1.25) mg/dL Est GFR (CKD-EPI)AfAm 63 (>60 ml/min/1.73 sqM) Est GFR (CKD-EPI)NonAf 55 (>60 ml/min/1.73 sqM) Glucose 141 H (74-99) mg/dL Calcium 13.3 H* (8.4-10.2) mg/dL Total Bilirubin 0.3 (0.2-1.3) mg/dL AST 22 (17-59) U/L ALT 14 (4-49) U/L Alkaline Phosphatase 108 (38-126) U/L Troponin I (0.000-0.034) ng/mL Total Protein 7.1 (6.3-8.2) g/dL Albumin 3.4 L (3.5-5.0) g/dL Blood Type Blood Type Recheck Bld Type Recheck Status Antibody Screen Crossmatch Spec Expiration Date 07/10/20 07/10/20 Range/Units 07:33 07:35 WBC (3.8-10.6) k/uL RBC (4.30-5.90) m/uL Hgb (13.0-17.5) gm/dL Hct (39.0-53.0) % MCV (80.0-100.0) fL MCH (25.0-35.0) pg MCHC (31.0-37.0) g/dL RDW (11.5-15.5) % Plt Count (150-450) k/uL MPV Neutrophils % % Lymphocytes % % Monocytes % % Eosinophils % % Basophils % % Neutrophils # (1.3-7.7) k/uL Lymphocytes # (1.0-4.8) k/uL Monocytes # (0-1.0) k/uL Eosinophils # (0-0.7) k/uL Basophils # (0-0.2) k/uL Hypochromasia Poikilocytosis Anisocytosis PT (9.0-12.0) sec INR (<1.2) APTT (22.0-30.0) sec Sodium (137-145) mmol/L Potassium (3.5-5.1) mmol/L Chloride (98-107) mmol/L Carbon Dioxide (22-30) mmol/L Anion Gap mmol/L BUN (9-20) mg/dL Creatinine (0.66-1.25) mg/dL Est GFR (CKD-EPI)AfAm (>60 ml/min/1.73 sqM) Est GFR (CKD-EPI)NonAf (>60 ml/min/1.73 sqM) Glucose (74-99) mg/dL Calcium (8.4-10.2) mg/dL Total Bilirubin (0.2-1.3) mg/dL AST (17-59) U/L ALT (4-49) U/L Alkaline Phosphatase (38-126) U/L Troponin I <0.012 (0.000-0.034) ng/mL Total Protein (6.3-8.2) g/dL Albumin (3.5-5.0) g/dL Blood Type A Positive Blood Type Recheck A Pos Bld Type Recheck Status No Antibody Screen NEGATIVE Crossmatch See Detail Spec Expiration Date 07/13/20202332 Disposition Clinical Impression: Hematuria, GI bleed Disposition: ADMITTED IP TO THIS [facility] Referrals: Satish Alcala DO [Primary Care Provider] - 1-2 days Time of Disposition: 09:46
[2020-07-10 07:59] LABS: Anisocytosis Slight; Basophils % (A) 0 %; Eosinophils # (A) 0.2 k/uL (0-0.7); Eosinophils % (A) 2 %; HCT 26.2 % (39.0-53.0); Hypochromasia Slight; Lymphocytes # (A) 1.8 k/uL (1.0-4.8); Lymphocytes % (A) 19 %; MCH 27.8 pg (25.0-35.0); MCHC 32.4 g/dL (31.0-37.0); Monocytes # (A) 0.6 k/uL (0-1.0); Monocytes % (A) 7 %; Neutrophils # (A) 6.7 k/uL (1.3-7.7); Neutrophils % (A) 70 %; Platelet Count 343 k/uL (150-450); Poikilocytosis Slight; RBC 3.06 m/uL (4.30-5.90); RDW 18.1 % (11.5-15.5); WBC 9.5 k/uL (3.8-10.6)
[2020-07-10 08:09] LABS: HGB 8.5 gm/dL (13.0-17.5); MCV 85.8 fL (80.0-100.0)
[2020-07-10 08:10] LABS: INR 1.2 (<1.2); Partial Thromboplastin Time 25.9 sec (22.0-30.0)
[2020-07-10 08:18] LABS: Albumin 3.4 g/dL (3.5-5.0); Potassium 3.7 mmol/L (3.5-5.1); Total Bilirubin 0.3 mg/dL (0.2-1.3); Total Protein 7.1 g/dL (6.3-8.2)
[2020-07-10 08:36] LABS: Calcium 13.3 mg/dL (8.4-10.2)
[2020-07-10] MEDS ORDERED: SODIUM CHLORIDE 0.9% 1,000 ML IV ONE ×2 (09:45→09:54)
[2020-07-10 10:29] LABS: Anisocytosis Slight; HCT 23.3 % (39.0-53.0); HGB 8.1 gm/dL (13.0-17.5); Hypochromasia Slight; MCH 29.5 pg (25.0-35.0); MCHC 34.6 g/dL (31.0-37.0); MCV 85.4 fL (80.0-100.0); Mean Platelet Volume 9.4; Poikilocytosis Slight; RBC 2.73 m/uL (4.30-5.90); RDW 18.1 % (11.5-15.5); WBC 8.3 k/uL (3.8-10.6)
[2020-07-10 10:34] LABS: Platelet Count 104 k/uL (150-450)
[2020-07-10] MEDS ORDERED: DOCUSATE 100 MG CAP PO PRN (15:11)
[2020-07-10] MEDS ORDERED: ACETAMINOPHEN TAB 325 MG TAB PO PRN (15:11)
[2020-07-10] MEDS ORDERED: polyethylene glycoL 3350 17 GM POWD.PACK PO PRN (15:11)
--- NOTE | 2020-07-10 15:29 | P.HPIM ---
History of Present Illness 72-year-old male was admitted for possible blood in the colostomy bag and from the urostomy site. When I valid the patient patient doesn't have any blood in the colostomy bleeding from the urostomy resolved although patient has blood clots in the catheter and the urine collecting black bag. Patient hemoglobin remained fairly stable patient is on anti-correlation with Xarelto for a recent DVT about a month ago this is being held. Patient had history of rectal cancer, patient had a rectal cancer surgery surgery and cancer resulted in what appears like a complicated infection or abscess/fistula in the rectal pelvic area leadi ng to urostomy bag and antibiotics Zosyn which she is as per the infectious disease from one hospital need to be continued until July 15. Review of Systems REVIEW OF SYSTEMS: CONSTITUTIONAL: No fever, no malaise, no fatigue. HEENT: No recent visual problems or hearing problems. Denied any sore throat. CARDIOVASCULAR: No chest pain, orthopnea, PND, no palpitations, no syncope. PULMONARY: No shortness of breath, no cough, no hemoptysis. GASTROINTESTINAL: No diarrhea, no nausea, no vomiting, no abdominal pain. NEUROLOGICAL: No headaches, no weakness, no numbness. HEMATOLOGICAL: Denies any bleeding or petechiae. GENITOURINARY: As mentioned in HPI MUSCULOSKELETAL/RHEUMATOLOGICAL: Denies any joint pain, swelling, or any muscle pain. ENDOCRINE: Denies any polyuria or polydipsia. The rest of the 14-point review of systems is negative. Past Medical History Past Medical History: Cancer, Hyperlipidemia, Hypertension, Thyroid Disorder Additional Past Medical History / Comment(s): PROSTATE CANCER WITH SEED IMPLANTS (07/06/2011), LOW THYROID, ANEMIA, HEMORRHOIDS, constipation. 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 suprapubic catheter placed Feb 19, 2020 History of Any Multi-Drug Resistant Organisms: None Reported Past Surgical History: Heart Catheterization Additional Past Surgical History / Comment(s): PROSTATE SEED IMPLANTS, COLONOSCOPY. Past Anesthesia/Blood Transfusion Reactions: No Reported Reaction, Motion Sickness Past Psychological History: No Psychological Hx Reported Smoking Status: Never smoker Past Alcohol Use History: Occasional Past Drug Use History: None Reported - Past Family History Mother Family Medical History: Hypertension Sister(s) Family Medical History: Cancer Medications and Allergies Home Medications Medication Instructions Recorded Confirmed Type Levothyroxine Sodium 125 mcg PO DAILY@0600 11/15/14 07/10/20 History Metoprolol Tartrate 25 mg PO BID 11/15/14 07/10/20 History Isosorbide Mononitrate [Isosorbide 30 mg PO DAILY 09/13/19 07/10/20 History Mononitrate ER] polyethylene glycoL 3350 [Miralax] 17 gm PO BID 04/10/20 07/10/20 History Docusate [Colace] 100 mg PO BID 06/03/20 07/10/20 History Acetaminophen [Tylenol 8 Hour] 650 mg PO Q6H PRN 07/10/20 07/10/20 History Atorvastatin [Lipitor] 20 mg PO HS 07/10/20 07/10/20 History Famotidine [Pepcid] 20 mg PO DAILY 07/10/20 07/10/20 History Ferrous Sulfate [Feosol] 325 mg PO DAILY 07/10/20 07/10/20 History Lactose-Reduced Food [Ensure Plus] 240 ml PO TID 07/10/20 07/10/20 History Magnesium Oxide [Magox 400] 400 mg PO DAILY 07/10/20 07/10/20 History Melatonin 10 mg PO HS 07/10/20 07/10/20 History Methadone [Dolophine] 5 mg PO Q12H 07/10/20 07/10/20 History Piperacillin-Tazobactam [Zosyn] 3.375 gm IV Q8HR 07/10/20 07/10/20 History QUEtiapine FUMARATE [SEROquel] 25 mg PO HS 07/10/20 07/10/20 History Rivaroxaban [Xarelto] 15 mg PO BID 07/10/20 07/10/20 History Sennosides [Senna] 8.6 mg PO BID 07/10/20 07/10/20 History oxyCODONE HCL [OxyIR] 5 mg PO Q4H PRN 07/10/20 07/10/20 History Allergies Allergy/AdvReac Type Severity Reaction Status Date / Time Sulfa (Sulfonamide Allergy Itching/marko Verified 07/10/20 10:07 Antibiotics) h Physical Exam Vitals: Vital Signs Temp Pulse Pulse Resp BP BP Pulse Ox 07/10/20 15:09 98.0 F 85 18 163/75 99 07/10/20 12:00 82 18 163/87 95 07/10/20 11:30 82 18 165/93 95 07/10/20 11:00 82 16 163/84 95 07/10/20 10:30 80 16 148/82 96 07/10/20 10:00 80 20 154/83 96 07/10/20 09:30 84 16 145/82 96 07/10/20 09:00 85 16 158/80 94 L 07/10/20 08:30 85 18 150/78 95 07/10/20 08:00 86 16 150/75 93 L 07/10/20 07:30 88 18 138/78 95 07/10/20 07:23 95 07/10/20 07:12 98.8 F 92 18 144/82 98 Intake and Output 07/10/20 07/10/20 07/10/20 06:59 14:59 22:59 Other: Weight 83.007 kg PHYSICAL EXAMINATION: GENERAL: The patient is alert and oriented x3, not in any acute distress. Well developed, well nourished. HEENT: Pupils are round and equally reacting to light. EOMI. No scleral icterus. No conjunctival pallor. Normocephalic, atraumatic. No pharyngeal erythema. No thyromegaly. CARDIOVASCULAR: S1 and S2 present. No murmurs, rubs, or gallops. PULMONARY: Chest is clear to auscultation, no wheezing or crackles. ABDOMEN: Abdomen is soft nontender patient has a suprapubic catheter and a colostomy colostomy site appeared to be clean without any infection no more bleeding from the urostomy site of colostomy site MUSCULOSKELETAL: No joint swelling or deformity. EXTREMITIES: No cyanosis, clubbing, or pedal edema. NEUROLOGICAL: Gross neurological examination did not reveal any focal deficits. SKIN: No rashes. Results CBC & Chem 7: 07/10/20 10:13 07/10/20 07:33 Labs: Abnormal Lab Results - Last 24 Hours (Table) 07/10/20 07/10/20 07/10/20 Range/Units 07:33 07:33 07:33 RBC 3.06 L (4.30-5.90) m/uL Hgb 8.5 L D (13.0-17.5) gm/dL Hct 26.2 L (39.0-53.0) % RDW 18.1 H (11.5-15.5) % Plt Count (150-450) k/uL INR 1.2 H (<1.2) Sodium 134 L (137-145) mmol/L Creatinine 1.30 H (0.66-1.25) mg/dL Glucose 141 H (74-99) mg/dL Calcium 13.3 H* (8.4-10.2) mg/dL Albumin 3.4 L (3.5-5.0) g/dL Crossmatch 07/10/20 07/10/20 Range/Units 07:35 10:13 RBC 2.73 L (4.30-5.90) m/uL Hgb 8.1 L (13.0-17.5) gm/dL Hct 23.3 L (39.0-53.0) % RDW 18.1 H (11.5-15.5) % Plt Count 104 L D (150-450) k/uL INR (<1.2) Sodium (137-145) mmol/L Creatinine (0.66-1.25) mg/dL Glucose (74-99) mg/dL Calcium (8.4-10.2) mg/dL Albumin (3.5-5.0) g/dL Crossmatch See Detail Assessment and Plan Plan: -Hematuria: Anticoagulation will be held and urology will be consulted. Patient need to be started back on anti-correlation as was possible as he is the DVTs as recent as about 4 weeks ago. -Concerns of lower GI bleed: Although not evident at this time aspirin neurology was consulted from ER Coumadin level at the patient. -Hyperlipoidemia hyponatremia: Continue with IV fluids [place]-acute renal failure prerenal azotemia from dehydration IV fluids as mentioned above -Colon Cancer: Because of complications and infections patient's chemotherapy is being held for now -Hypertension n -hyperlipidemia -Hypothyroidism DVT prophylaxis: Anti-correlation is being held because of hematuria and possible GI bleed.
[2020-07-10 15:53] LABS: Anisocytosis Slight; HCT 24.5 % (39.0-53.0); HGB 8.1 gm/dL (13.0-17.5); Hypochromasia Slight; MCH 28.6 pg (25.0-35.0); MCV 86.8 fL (80.0-100.0); Mean Platelet Volume 6.7; Poikilocytosis Slight; RBC 2.83 m/uL (4.30-5.90); RDW 17.9 % (11.5-15.5)
[2020-07-10] MEDS ORDERED: NON FORMULARY DRUG (Lactose-Reduced Food [Ensure Plus] 237 ML Liquid) PO SCH (16:00)
[2020-07-10] MEDS ORDERED: PIPERACILLIN-TAZOBACTAM 3.375 GM VIAL IV SCH (16:00)
[2020-07-10 16:02] LABS: Platelet Count 326 k/uL (150-450)
[2020-07-10] MEDS: PIPERACILLIN-TAZOBACTAM 3.375 GM in SODIUM CHLORIDE 0.9% 100 ML IVPB SCH ×2 (16:33→22:53)
--- NOTE | 2020-07-10 17:24 | CONS ---
CONSULTATION DATE OF SERVICE: July 10, 2020. REASON FOR CONSULTATION: GI bleed. HISTORY OF PRESENT ILLNESS: The patient is a 75-year-old pleasant white male in the emergency room department because he thought he is having some blood in the colostomy bag as well as in the urostomy bag. 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 Wen. The patient states that he underwent chemo radiation therapy about 6 weeks ago. He was told he has a fistula and subsequently underwent diverting colostomy at [facility] about 6 weeks ago. For the last one week, he has been noticing intermittent bleeding in the colostomy bag, but mostly in the suprapubic catheter. He became concerned, came to the emergency room and subsequently admitted to the hospital for further evaluation. The patient has been on Eliquis for DVT, which is currently on hold. On further questioning and examining the colostomy bag, there was no stool noted and there was no blood noted. However, in the urostomy bag, there was significant amount of bloody urine noted. The patient did have a colonoscopy by me in March of 2020 that showed a large rectal mass and otherwise unremarkable. PAST MEDICAL HISTORY: Significant for DVT on Eliquis, currently on hold. 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 History of prostate cancer 8 years ago. PAST SURGICAL HISTORY: Diverting colostomy 6 weeks ago at [facility]. Suprapubic catheter placement since February of 2020, cardiac catheterization, colonoscopy in August of 2019. MEDICATIONS: Medications at home include: Levothyroxine, metoprolol, multivitamin, vitamin D3, Crestor, Isordil, Tylenol No.3, MiraLAX, Eliquis, Lomotil, Colace, [place], omeprazole, and Zofran. ALLERGIES: SULFA. SOCIAL HISTORY: No smoking. No alcohol use. FAMILY HISTORY: Sister had some kind of cancer. Mother has hypertension. REVIEW OF SYSTEMS: CARDIOPULMONARY: He denies any chest pain or shortness of breath. GENITOURINARY: Severe pain in the suprapubic area with blood in the suprapubic catheter. Neurology unremarkable. Psychiatric unremarkable. ENT/VISION: Unremarkable. CONSTITUTIONAL: Weight loss of 10 pounds. No fever, chills, night sweats. GI as mentioned above. Hematology: Mild anemia. ENDOCRINE: Unremarkable. ONCOLOGY as mentioned above. PHYSICAL EXAMINATION: He appears comfortable. No apparent distress. Vital signs stable. Blood pressure 140/86. Pulse rate 82 per minute and afebrile. HEENT examination unremarkable. Conjunctivae pink. Sclerae anicteric. Oral cavity no lesions. NECK: No JVD or lymph node enlargement. CHEST was clear to auscultation. HEART: Regular rate and rhythm. ABDOMEN: Soft. There was suprapubic catheter noted. There was some blood noted around the suprapubic catheter and the urostomy bag had large amount of blood. The colostomy bag was in the left lower quadrant area and was empty. There was no tenderness noted. EXTREMITIES: No pedal edema. SKIN: No rashes. NEUROLOGIC: Alert and oriented x3. No focal deficits. LABS: WBC 9.5, hemoglobin 8.5, platelets of 343. BUN and creatinine are within normal limits. Calcium is elevated at 13.3. Choe virus PCR is negative. His last hemoglobin on July 01 was 6.9. IMPRESSION: 1. 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 He has seen Dr. Wen, underwent chemo radiation and recently had a diverting colostomy at [facility] for fistula formation. Now he presents to the hospital with blood in the suprapubic catheter and some bleeding around the colostomy bag. The patient did have a colonoscopy in August 2019 that showed the colon was normal other than the rectal mass. Presently, there is no bleeding noted in the colostomy bag. 2. Hematuria from the suprapubic catheter. 3. History of deep vein thrombosis, on Eliquis, currently on hold. RECOMMENDATIONS: 1. Monitor CBC daily. 2. We will watch for any bleeding from the colostomy bag at this time. 3. Recommend urology consultation for significant bleeding from the suprapubic catheter. 4. Monitor CBC daily and transfuse if the hemoglobin is less than 7. 5. We will follow with you closely. Thank you for this consultation. MMODL / IJN: [id number] /
[2020-07-10] MEDS ORDERED: ATORVASTATIN 20 MG TAB PO SCH (21:00)
[2020-07-10] MEDS ORDERED: METHADONE 5 MG TAB PO SCH (21:00)
[2020-07-10] MEDS ORDERED: QUEtiapine 25 MG TAB PO SCH (21:00)
[2020-07-10] MEDS ORDERED: MELATONIN 5 MG TABLET PO SCH (21:00)
[2020-07-10] MEDS ORDERED: METHADONE 10 MG TAB PO SCH (22:15)
[2020-07-10] MEDS: METOPROLOL TARTRATE 25 MG TAB PO SCH (22:51)
[2020-07-10] MEDS: SENNOSIDES 8.6 MG TAB PO SCH (22:52)
[2020-07-10 23:14] LABS: Anisocytosis Slight; HCT 25.4 % (39.0-53.0); HGB 8.5 gm/dL (13.0-17.5); Hypochromasia Slight; MCH 28.8 pg (25.0-35.0); MCHC 33.4 g/dL (31.0-37.0); MCV 86.2 fL (80.0-100.0); Mean Platelet Volume 7.6; Platelet Count 294 k/uL (150-450); Poikilocytosis Slight; RBC 2.94 m/uL (4.30-5.90); RDW 17.7 % (11.5-15.5); WBC 8.3 k/uL (3.8-10.6)
[2020-07-11] MEDS ORDERED: LEVOTHYROXINE 125 MCG TAB PO SCH (06:00)
[2020-07-11] MEDS: SENNOSIDES 8.6 MG TAB PO SCH (07:36)
[2020-07-11] MEDS: PIPERACILLIN-TAZOBACTAM 3.375 GM in SODIUM CHLORIDE 0.9% 100 ML IVPB SCH (07:36)
[2020-07-11] MEDS: METOPROLOL TARTRATE 25 MG TAB PO SCH (07:37)
[2020-07-11] MEDS ORDERED: FAMOTIDINE 20 MG TAB PO SCH (09:00)
[2020-07-11] MEDS ORDERED: ISOSORBIDE MONONITRATE ER 30 MG TAB.ER.24H PO SCH (09:00)
[2020-07-11] MEDS ORDERED: FERROUS SULFATE 325 MG TAB PO SCH (09:00)
[2020-07-11] MEDS ORDERED: MAGNESIUM OXIDE 400 MG TAB PO SCH (09:00)
--- NOTE | 2020-07-11 09:34 | P.GSCN ---
History of Present Illness Consult date: 07/11/20 History of present illness: 74 yo male with a very complicated urological history we were asked to see for gross hematuria. The patient in [place] in 2009 underwent brachytherapy for prostate cancer. [facility] Hardy assumed the patients care. His psa remained low but eventually developed urine retention. 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 He was sent to [facility] for a pelvic exenteration but due to poor health this was not achieved. 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 He eventually underwent a colostomy and has a suprapubic tube. He came to the hospital for rectal and urinary tract bleeding. The urine has old blood at present. His hgb is stable at 8.The patient has been under the care of Dr Wen. He has been on eliquis for a dvt Review of Systems All systems: negative - Constitutional Denies fever, Denies weight loss - EENT Eyes: denies blurred vision Ears, nose, mouth and throat: Denies dysphagia - Cardiovascular Denies chest pain, Denies shortness of breath - Respiratory Denies cough, Denies 7 - Gastrointestinal Reports as per HPI - Genitourinary Denies dysuria, Denies hematuria - Integumentary Denies rash, Denies unusual bruising - Neurological Denies headaches, Denies syncope - Hematologic/Lymphatic Denies easy bleeding, Denies easy bruising Past Medical History Past Medical History: Cancer, Hyperlipidemia, Hypertension, Thyroid Disorder Additional Past Medical History / Comment(s): PROSTATE CANCER WITH SEED IMPLANTS (07/06/2011), LOW THYROID, ANEMIA, HEMORRHOIDS, constipation. 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 suprapubic catheter placed Feb 19, 2020 History of Any Multi-Drug Resistant Organisms: None Reported Past Surgical History: Heart Catheterization Additional Past Surgical History / Comment(s): PROSTATE SEED IMPLANTS, COLONOSCOPY. Past Anesthesia/Blood Transfusion Reactions: No Reported Reaction, Motion Sickness Past Psychological History: No Psychological Hx Reported Smoking Status: Never smoker Past Alcohol Use History: Occasional Past Drug Use History: None Reported - Past Family History Mother Family Medical History: Hypertension Sister(s) Family Medical History: Cancer Medications and Allergies Home Medications Medication Instructions Recorded Confirmed Type Levothyroxine Sodium 125 mcg PO DAILY@0600 11/15/14 07/10/20 History Metoprolol Tartrate 25 mg PO BID 11/15/14 07/10/20 History Isosorbide Mononitrate [Isosorbide 30 mg PO DAILY 09/13/19 07/10/20 History Mononitrate ER] polyethylene glycoL 3350 [Miralax] 17 gm PO BID 04/10/20 07/10/20 History Docusate [Colace] 100 mg PO BID 06/03/20 07/10/20 History Acetaminophen [Tylenol 8 Hour] 650 mg PO Q6H PRN 07/10/20 07/10/20 History Atorvastatin [Lipitor] 20 mg PO HS 07/10/20 07/10/20 History Famotidine [Pepcid] 20 mg PO DAILY 07/10/20 07/10/20 History Ferrous Sulfate [Feosol] 325 mg PO DAILY 07/10/20 07/10/20 History Lactose-Reduced Food [Ensure Plus] 240 ml PO TID 07/10/20 07/10/20 History Magnesium Oxide [Magox 400] 400 mg PO DAILY 07/10/20 07/10/20 History Melatonin 10 mg PO HS 07/10/20 07/10/20 History Methadone [Dolophine] 5 mg PO Q12H 07/10/20 07/10/20 History Piperacillin-Tazobactam [Zosyn] 3.375 gm IV Q8HR 07/10/20 07/10/20 History QUEtiapine FUMARATE [SEROquel] 25 mg PO HS 07/10/20 07/10/20 History Rivaroxaban [Xarelto] 15 mg PO BID 07/10/20 07/10/20 History Sennosides [Senna] 8.6 mg PO BID 07/10/20 07/10/20 History oxyCODONE HCL [OxyIR] 5 mg PO Q4H PRN 07/10/20 07/10/20 History Allergies Allergy/AdvReac Type Severity Reaction Status Date / Time Sulfa (Sulfonamide Allergy Itching/marko Verified 07/10/20 10:07 Antibiotics) h Surgical - Exam Vital Signs Temp Pulse Resp BP Pulse Ox 98.8 F 92 18 144/82 98 07/10/20 07:12 07/10/20 07:12 07/10/20 07:12 07/10/20 07:12 07/10/20 07:12 - General well developed, chronically ill - Eyes PERRL - ENT no hearing loss - Neck trachea midline - Respiratory normal expansion, normal respiratory effort - Cardiovascular Rhythm: regular - Abdomen colostomy, suprapubic catheter. Abdomen: soft - Neurologic normal coordination, normal sensation - Musculoskeletal normal posture - Psychiatric oriented to time, oriented to person, oriented to place, speech is normal, memory intact Results - Labs 07/10/20 22:00 07/10/20 07:33 Abnormal Lab Results - Last 24 Hours (Table) 07/10/20 07/10/20 07/10/20 Range/Units 10:13 15:31 22:00 RBC 2.73 L 2.83 L 2.94 L (4.30-5.90) m/uL Hgb 8.1 L 8.1 L 8.5 L (13.0-17.5) gm/dL Hct 23.3 L 24.5 L 25.4 L (39.0-53.0) % RDW 18.1 H 17.9 H 17.7 H (11.5-15.5) % Plt Count 104 L D (150-450) k/uL - Imaging CT scan - abdomen: report reviewed, image reviewed CT scan - pelvis: report reviewed, image reviewed Assessment and Plan Assessment: Impression: gross hematuria secondary to catheter, possible uti, possible cancer of the urothelium. colovesical fistual Hx of dvt Anemia acute and chronic. advanced urothelial cancer Hx of prostate cancer rxd with seeds, remission. Plan At present due to the extreme difficulty of this case I will observe the hematuria as long as it isnt progressing the blood in the catheter is old. I will discuss this with Dr Hardy Time with Patient: Greater than 30
[2020-07-11 10:04] LABS: Anisocytosis Slight; HCT 25.9 % (39.0-53.0); HGB 8.7 gm/dL (13.0-17.5); Hypochromasia Moderate; MCHC 33.4 g/dL (31.0-37.0); MCV 86.9 fL (80.0-100.0); Mean Platelet Volume 7.3; Platelet Count 307 k/uL (150-450); Poikilocytosis Slight; RBC 2.99 m/uL (4.30-5.90); RDW 17.9 % (11.5-15.5); WBC 8.9 k/uL (3.8-10.6)
--- NOTE | 2020-07-11 12:56 | P.DS ---
Providers Date of admission: 07/11/20 10:03 Expected date of discharge: 07/11/20 Attending physician: Christos Oleary MD Consults: 07/10/20 09:54 Consult Physician Urgent Consulting Provider: Patsy Lala Consult Reason/Comments: GI bleed Do you want consulting provider notified?: Yes 07/10/20 15:14 Consult Physician Routine Consulting Provider: Willie Cisneros Consult Reason/Comments: Hematuria Do you want consulting provider notified?: Yes Primary care physician: Satish Alcala [facility] Course: Final diagnosis -Hematuria -Possible acute urinary tract infection, present on admission -Concerns of lower GI bleed, ruled out -Hyperlipidemia -hyponatremia -acute renal failure prerenal azotemia from dehydration IV fluids as mentioned above -Colon Cancer: Because of complications and infections patient's chemotherapy is being held for now -Hypertension -Hypothyroidism -DVT prophylaxis -No code Discharge disposition Patient is being discharged in a stable condition with guarded prognosis to [facility] where he is a resident. Patient will follow-up with Dr. Alcala in the outpatient setting upon discharge. Patient is to continue to hold Xarelto until urine is clear for 48 hours and then may resume. Patient to follow-up with urology outpatient in one week. Total time taken is greater than 35 minutes. Hospital course 72-year-old male was admitted for possible blood in the colostomy bag and from the urostomy site. When I valid the patient patient doesn't have any blood in the colostomy bleeding from the urostomy resolved although patient has blood clots in the catheter and the urine collecting black bag. Patient hemoglobin remained fairly stable patient is on anti-correlation with Xarelto for a recent DVT about a month ago this is being held. Patient had history of rectal cancer, patient had a rectal cancer surgery surgery and cancer resulted in what appears like a complicated infection or abscess/fistula in the rectal pelvic area l eading to urostomy bag and antibiotics Zosyn which she is as per the infectious disease from one hospital need to be continued until July 15. 07/11/2020 Patient was seen and evaluated by urology along with GI recommending outpatient follow-up with urology in 1 week. Recommend repeat labs in 2-3 days to monitor hemoglobin. Hemoglobin has gone up and is currently 8.7 today. Patient continues with blood noted in the catheter and Xarelto has been on hold. Per urology recommendations patient is to continue to hold Xarelto until urine is clear in the indwelling Christie catheter for 48 hours and then may resume anticoagulant. Patient was started on antibiotics and we'll transition to oral in the form of Augmentin twice daily for the next 3 days to complete the course. Patient was also seen and evaluated by GI as there is no active bleeding noted from the colostomy. Currently no reports of chest pain, shortness of breath, or palpitations. Patient is afebrile. No reports of nausea or vomiting and patient is tolerating diet. Patient will be going to [place] [facility] the [facility] today. On exam vital signs are stable. Cardio S1, S2 are muffled. Respiratory system shows diminished breath sounds at the bases with no wheezing or rhonchi noted. Abdomen is soft and nontender. Nervous system shows diffuse weakness. Please refer to medication reconciliation sheet for a list of medications. Patient Condition at Discharge: Stable Plan - Discharge Summary Discharge Rx Participant: No New Discharge Prescriptions: New Amoxic-Pot Clav 875-125Mg [Augmentin 875-125] 1 tab PO Q12HR 3 Days #6 tab Continue Levothyroxine Sodium 125 mcg PO DAILY@0600 Metoprolol Tartrate 25 mg PO BID Isosorbide Mononitrate [Isosorbide Mononitrate ER] 30 mg PO DAILY polyethylene glycoL 3350 [Miralax] 17 gm PO BID Docusate [Colace] 100 mg PO BID Sennosides [Senna] 8.6 mg PO BID Melatonin 10 mg PO HS Magnesium Oxide [Magox 400] 400 mg PO DAILY Atorvastatin [Lipitor] 20 mg PO HS oxyCODONE HCL [OxyIR] 5 mg PO Q4H PRN #4 tab PRN Reason: Breakthrough Pain Rivaroxaban [Xarelto] 15 mg PO BID #0 Acetaminophen [Tylenol 8 Hour] 650 mg PO Q6H PRN PRN Reason: Pain Or Fever > 100.5 Lactose-Reduced Food [Ensure Plus] 240 ml PO TID QUEtiapine FUMARATE [SEROquel] 25 mg PO HS Ferrous Sulfate [Iron (65 MG Elemental)] 325 mg PO DAILY Famotidine [Pepcid] 20 mg PO DAILY Piperacillin-Tazobactam [Zosyn] 3.375 gm IV Q8HR Methadone [Dolophine] 5 mg PO Q12H #4 tab Discharge Medication List Levothyroxine Sodium 125 mcg PO DAILY@0600 11/15/14 [History] Metoprolol Tartrate 25 mg PO BID 11/15/14 [History] Isosorbide Mononitrate [Isosorbide Mononitrate ER] 30 mg PO DAILY 09/13/19 [History] polyethylene glycoL 3350 [Miralax] 17 gm PO BID 04/10/20 [History] Docusate [Colace] 100 mg PO BID 06/03/20 [History] Acetaminophen [Tylenol 8 Hour] 650 mg PO Q6H PRN 07/10/20 [History] Atorvastatin [Lipitor] 20 mg PO HS 07/10/20 [History] Famotidine [Pepcid] 20 mg PO DAILY 07/10/20 [History] Ferrous Sulfate [Iron (65 MG Elemental)] 325 mg PO DAILY 07/10/20 [History] Lactose-Reduced Food [Ensure Plus] 240 ml PO TID 07/10/20 [History] Magnesium Oxide [Magox 400] 400 mg PO DAILY 07/10/20 [History] Melatonin 10 mg PO HS 07/10/20 [History] Piperacillin-Tazobactam [Zosyn] 3.375 gm IV Q8HR 07/10/20 [History] QUEtiapine FUMARATE [SEROquel] 25 mg PO HS 07/10/20 [History] Sennosides [Senna] 8.6 mg PO BID 07/10/20 [History] Amoxic-Pot Clav 875-125Mg [Augmentin 875-125] 1 tab PO Q12HR 3 Days #6 tab 07/11/20 [Rx] Methadone [Dolophine] 5 mg PO Q12H #4 tab 07/11/20 [Rx] Rivaroxaban [Xarelto] 15 mg PO BID #0 07/11/20 [Rx] oxyCODONE HCL [OxyIR] 5 mg PO Q4H PRN #4 tab 07/11/20 [Rx] Follow up Appointment(s)/Referral(s): Satish Alcala DO [Primary Care Provider] - 1-2 days Grover Hardy MD [STAFF PHYSICIAN] - 1 Week Ambulatory/Diagnostic Orders: Complete Blood Count w/diff [LAB.AMB] Time Frame: 3 Days, Location: None Selected Activity/Diet/Wound Care/Special Instructions: Patient is returning to [facility] on the day Activity as tolerated Continue current diet Follow-up with urology outpatient in one week Continue to hold Xarelto until urine is clear for 48 hours and then may resume Continue with antibiotics for 3 days and then may discontinue Discharge Disposition: TRANSFER TO SNF/ECF
[2020-07-11 16:25] VITALS: BP 123/52; PULSE 69; RESP 16; TEMP 98.2
--- NOTE | 2020-07-11 16:29 | PN ---
PROGRESS NOTE DATE OF DICTATION: 07/11/2020 This patient is a 74-year-old pleasant white male admitted to the hospital with bleeding from the suprapubic catheter and questionable bleeding from the colostomy bag. He was seen in the ER yesterday. He denies any new symptoms today. He continues to have bright red blood in the suprapubic catheter. He was seen by Dr. Cisneros from Urology. He denies any new symptoms. He had a bowel movement this morning which was brown in color. He denies any abdominal pain. PHYSICAL EXAMINATION: He appears comfortable. VITAL SIGNS: Stable. Blood pressure 112/82, pulse rate 99 per minute and afebrile. HEENT examination unremarkable. Conjunctivae pink. Sclerae anicteric. Oral cavity no lesions. NECK: No JVD or lymph node enlargement. CHEST: Clear to auscultation. HEART: Regular rate and rhythm. ABDOMEN: Soft. There was a colostomy bag in the left lower quadrant area. There is a suprapubic in the suprapubic area. EXTREMITIES: No pedal edema. NEUROLOGIC: Alert and oriented x3. No focal deficits. LABS: Labs from today show WBC 8.9, hemoglobin 8.7, platelets are normal. IMPRESSION: 1. History of uroepithelial cancer diagnosed in March of 2020, status post diverting colostomy for colovesical fistula. Patient is status post chemotherapy as well as chemoradiation and follows with his urologist at [facility]. He presented to the hospital with bleeding from the suprapubic catheter as well as questionable bleeding from the colostomy site. However, since being in the hospital there was no active bleeding noted in the colostomy bag. In fact, his stool is brown in color. His hemoglobin is currently stable. He has history of DVT, on Eliquis, which is currently on hold. 2. Gross hematuria from suprapubic catheter. 3. History of urothelial cancer diagnosed in March of 2020, under the care of Dr. Wen. RECOMMENDATIONS: 1. Since no active bleeding noted in the colostomy bag, he does not need any endoscopic intervention at the present time. 2. Continue to monitor CBC daily. 3. Symptomatic and supportive care. 4. He is [facility] Thank you for this consultation. MMODL / IJN: [id number] /
== END 2020-07-11 15:40 | DRG 699 ==
LOC: EC 07:10 → 1SOBS 09:49 → INTOOBSV 10:03 → OBSVTOIN 10:03 → 6NMEDSUR 14:13 → OBSVTOIN 07-11 10:03
PROVIDERS: ADMIT Internal Medicine; ATTEND Internal Medicine
DX: T83.83XA Hemorrhage due to genitourinary prosthetic devices, implants and grafts, initial encounter (principal); C18.9 Malignant neoplasm of colon, unspecified; C68.8 Malignant neoplasm of overlapping sites of urinary organs; E87.1 Hypo-osmolality and hyponatremia; N17.9 Acute kidney failure, unspecified; N39.0 Urinary tract infection, site not specified; R31.0 Gross hematuria; E03.9 Hypothyroidism, unspecified; E78.5 Hyperlipidemia, unspecified; E86.0 Dehydration; I10 Essential (primary) hypertension; N42.89 Other specified disorders of prostate; Z85.46 Personal history of malignant neoplasm of prostate; Z79.01 Long term (current) use of anticoagulants; Z79.890 Hormone replacement therapy; Z79.899 Other long term (current) drug therapy; Z82.49 Family history of ischemic heart disease and other diseases of the circulatory system; Z86.718 Personal history of other venous thrombosis and embolism; Z92.21 Personal history of antineoplastic chemotherapy; Z93.3 Colostomy status; Z92.3 Personal history of irradiation; Z20.822 Contact with and (suspected) exposure to COVID-19; Z66 Do not resuscitate; Z88.2 Allergy status to sulfonamides; K59.00 Constipation, unspecified; Z80.9 Family history of malignant neoplasm, unspecified
CPT/HCPCS: 36415; 80053; 84484; 85025; 85027; 85610; 85730; 86850; 86900; 86901; 86920; 87635; 99285

== ENCOUNTER 2020-07-17 07:14 | Emergency (ER) | payer MEDICARE ==
[2020-07-17 07:23] VITALS: RESP 18
--- NOTE | 2020-07-17 07:49 | ED ---
General Adult HPI - General Chief complaint: Urogenital Stated complaint: Hematuria Time Seen by Provider: 07/17/20 07:15 Source: patient, EMS, RN notes reviewed, old records reviewed Mode of arrival: EMS Limitations: no limitations - History of Present Illness Initial comments: 74-year-old male who presents emergency Department with a history of colon cancer. Patient has a colostomy as well as a suprapubic catheter. Patient states his urinary catheter bag shows a lot of blood and so they sent him in. Patient states he has not been feeling well for quite a while but he feels worse and more tired today. Patient states she has a history of anemia but he feels as though he is anemic again. Patient denies a fever chills. Patient denies chest pain difficult breathing shortest breath. Patient denies any vomiting. - Related Data Home Medications Medication Instructions Recorded Confirmed Levothyroxine Sodium 125 mcg PO DAILY@0600 11/15/14 07/17/20 Metoprolol Tartrate 25 mg PO BID 11/15/14 07/17/20 Isosorbide Mononitrate [Isosorbide 30 mg PO DAILY 09/13/19 07/17/20 Mononitrate ER] polyethylene glycoL 3350 [Miralax] 17 gm PO BID 04/10/20 07/17/20 Docusate [Colace] 100 mg PO BID 06/03/20 07/17/20 Acetaminophen [Tylenol 8 Hour] 650 mg PO Q6H PRN 07/10/20 07/17/20 Atorvastatin [Lipitor] 20 mg PO HS 07/10/20 07/17/20 Famotidine [Pepcid] 20 mg PO DAILY 07/10/20 07/17/20 Ferrous Sulfate [Iron (65 MG 325 mg PO DAILY 07/10/20 07/17/20 Elemental)] Lactose-Reduced Food [Ensure Plus] 240 ml PO TID 07/10/20 07/17/20 Magnesium Oxide [Magox 400] 400 mg PO DAILY 07/10/20 07/17/20 Melatonin 10 mg PO HS 07/10/20 07/17/20 QUEtiapine FUMARATE [SEROquel] 25 mg PO HS 07/10/20 07/17/20 Sennosides [Senna] 8.6 mg PO BID 07/10/20 07/17/20 Methadone [Dolophine] 5 mg PO BID@0300,1500 07/17/20 07/17/20 Previous Rx's Medication Instructions Recorded Rivaroxaban [Xarelto] 15 mg PO BID #0 07/11/20 oxyCODONE HCL [OxyIR] 5 mg PO Q4H PRN #4 tab 07/11/20 Allergies Allergy/AdvReac Type Severity Reaction Status Date / Time alendronate sodium Allergy Unknown Verified 07/17/20 08:51 Sulfa (Sulfonamide Allergy Itching/marko Verified 07/17/20 08:51 Antibiotics) h Review of Systems ROS Statement: Those systems with pertinent positive or pertinent negative responses have been documented in the HPI. ROS Other: All systems not noted in ROS Statement are negative. Past Medical History Past Medical History: Cancer, Hyperlipidemia, Hypertension, Thyroid Disorder Additional Past Medical History / Comment(s): PROSTATE CANCER WITH SEED IMPLANTS (07/06/2011), LOW THYROID, ANEMIA, HEMORRHOIDS, constipation. 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 suprapubic catheter placed Feb 19, 2020 History of Any Multi-Drug Resistant Organisms: None Reported Past Surgical History: Heart Catheterization Additional Past Surgical History / Comment(s): PROSTATE SEED IMPLANTS, COLONOSCOPY. Past Anesthesia/Blood Transfusion Reactions: No Reported Reaction, Motion Sickness Past Psychological History: No Psychological Hx Reported Smoking Status: Never smoker Past Alcohol Use History: Occasional Past Drug Use History: None Reported - Past Family History Mother Family Medical History: Hypertension Sister(s) Family Medical History: Cancer General Exam - General Exam Comments Initial Comments: GENERAL: Patient is well-developed and well-nourished. Patient is nontoxic and well- hydrated and is in mild distress. ENT: Neck is soft and supple. No significant lymphadenopathy is noted. Oropharynx is clear. Moist mucous membranes. Neck has full range of motion without eliciting any pain. EYES: The sclera were anicteric and conjunctiva were pink and moist. Extraocular movements were intact and pupils were equal round and reactive to light. Eyelids were unremarkable. PULMONARY: Unlabored respirations. Good breath sounds bilaterally. No audible rales rhonchi or wheezing was noted. CARDIOVASCULAR: There is a regular rate and rhythm without any murmurs gallops or rubs. ABDOMEN: Soft and nontender with normal bowel sounds. SKIN: Pale skin NEUROLOGIC: Patient is alert and oriented x3. Cranial nerves II through XII are grossly intact. Motor and sensory are also intact. Normal speech, volume and content. Symmetrical smile. MUSCULOSKELETAL: Normal extremities with adequate strength and full range of motion. LYMPHATICS: No significant lymphadenopathy is noted PSYCHIATRIC: Normal psychiatric evaluation. Limitations: no limitations Course Vital Signs 07/17/20 07/17/20 07:15 11:30 Temperature 98.4 F Pulse Rate 75 76 Respiratory 18 18 Rate Blood Pressure 133/68 140/65 O2 Sat by Pulse 98 99 Oximetry Procedures - Catheter Insertion (Urinary) Indications: other (Clotted with blood) Prophylactic Antibiotics Given: No Bladder Scan/US before Catheterization: No Estimated Amount of Urine (mls): 100 Preparation: Povidone-Iodine Type of Catheter Inserted: 2 way Catheter Danish Size: 20 Catheter Balloon Size (mLs): 10 Results: successfully catheterized-immediate flow Patient Tolerated Procedure: well Complications: none Additional Comments: This was a supra pubic catheter placement Medical Decision Making - Medical Decision Making EKG shows sinus rhythm at 60 bpm IN interval is 210 QRS is 1:30 QT interval 398 QTC is 423. Patient's EKG shows no ST segment elevation or depression. After I placed a catheter suprapubically the bladder was irrigated with water and there were no more blood clots coming out and there was no blood in the urine at this time. - Lab Data Result diagrams: 07/17/20 08:09 07/17/20 08:09 Lab Results 07/17/20 07/17/20 07/17/20 Range/Units 08:09 08:09 08:09 WBC 8.4 (3.8-10.6) k/uL RBC 3.30 L (4.30-5.90) m/uL Hgb 9.5 L D (13.0-17.5) gm/dL Hct 27.9 L (39.0-53.0) % MCV 84.6 (80.0-100.0) fL MCH 28.8 (25.0-35.0) pg MCHC 34.1 (31.0-37.0) g/dL RDW 17.4 H (11.5-15.5) % Plt Count 285 (150-450) k/uL MPV 7.8 Neutrophils % 65 % Lymphocytes % 21 % Monocytes % 8 % Eosinophils % 4 % Basophils % 0 % Neutrophils # 5.5 (1.3-7.7) k/uL Lymphocytes # 1.8 (1.0-4.8) k/uL Monocytes # 0.7 (0-1.0) k/uL Eosinophils # 0.3 (0-0.7) k/uL Basophils # 0.0 (0-0.2) k/uL Manual Slide Review Performed Poikilocytosis Slight Anisocytosis Slight PT (9.0-12.0) sec INR (<1.2) APTT (22.0-30.0) sec Sodium 136 L (137-145) mmol/L Potassium 3.3 L (3.5-5.1) mmol/L Chloride 103 (98-107) mmol/L Carbon Dioxide 26 (22-30) mmol/L Anion Gap 7 mmol/L BUN 23 H (9-20) mg/dL Creatinine 1.77 H (0.66-1.25) mg/dL Est GFR (CKD-EPI)AfAm 44 (>60 ml/min/1.73 sqM) Est GFR (CKD-EPI)NonAf 38 (>60 ml/min/1.73 sqM) Glucose 106 H (74-99) mg/dL Calcium 11.9 H (8.4-10.2) mg/dL Magnesium 1.8 (1.6-2.3) mg/dL Total Bilirubin 0.3 (0.2-1.3) mg/dL AST 22 (17-59) U/L ALT 15 (4-49) U/L Alkaline Phosphatase 92 (38-126) U/L Troponin I 0.017 (0.000-0.034) ng/mL Total Protein 6.4 (6.3-8.2) g/dL Albumin 3.1 L (3.5-5.0) g/dL Coronavirus (PCR) (Not Detectd) Blood Type Blood Type Recheck Bld Type Recheck Status Antibody Screen Spec Expiration Date 07/17/20 07/17/20 07/17/20 Range/Units 08:09 08:09 10:45 WBC (3.8-10.6) k/uL RBC (4.30-5.90) m/uL Hgb (13.0-17.5) gm/dL Hct (39.0-53.0) % MCV (80.0-100.0) fL MCH (25.0-35.0) pg MCHC (31.0-37.0) g/dL RDW (11.5-15.5) % Plt Count (150-450) k/uL MPV Neutrophils % % Lymphocytes % % Monocytes % % Eosinophils % % Basophils % % Neutrophils # (1.3-7.7) k/uL Lymphocytes # (1.0-4.8) k/uL Monocytes # (0-1.0) k/uL Eosinophils # (0-0.7) k/uL Basophils # (0-0.2) k/uL Manual Slide Review Poikilocytosis Anisocytosis PT 10.2 (9.0-12.0) sec INR 0.9 (<1.2) APTT 17.6 L (22.0-30.0) sec Sodium (137-145) mmol/L Potassium (3.5-5.1) mmol/L Chloride (98-107) mmol/L Carbon Dioxide (22-30) mmol/L Anion Gap mmol/L BUN (9-20) mg/dL Creatinine (0.66-1.25) mg/dL Est GFR (CKD-EPI)AfAm (>60 ml/min/1.73 sqM) Est GFR (CKD-EPI)NonAf (>60 ml/min/1.73 sqM) Glucose (74-99) mg/dL Calcium (8.4-10.2) mg/dL Magnesium (1.6-2.3) mg/dL Total Bilirubin (0.2-1.3) mg/dL AST (17-59) U/L ALT (4-49) U/L Alkaline Phosphatase (38-126) U/L Troponin I (0.000-0.034) ng/mL Total Protein (6.3-8.2) g/dL Albumin (3.5-5.0) g/dL Coronavirus (PCR) Not Detected (Not Detectd) Blood Type A Positive Blood Type Recheck A Pos Bld Type Recheck Status No Antibody Screen NEGATIVE Spec Expiration Date 07/20/2020 - 2308 Disposition Clinical Impression: Anemia, Encounter for replacement of urinary catheter, Hematuria Disposition: HOME SELF-CARE Condition: Good Instructions (If sedation given, give patient instructions): Hematuria (ED) Is patient prescribed a controlled substance at d/c from ED?: No Referrals: Satish Alcala DO [Primary Care Provider] - 1-2 days Grover Hardy MD [STAFF PHYSICIAN] - 1-2 days Time of Disposition: 12:52
[2020-07-17 09:00] LABS: Anisocytosis Slight; Basophils % (A) 0 %; Eosinophils # (A) 0.3 k/uL (0-0.7); Eosinophils % (A) 4 %; HCT 27.9 % (39.0-53.0); Lymphocytes # (A) 1.8 k/uL (1.0-4.8); Lymphocytes % (A) 21 %; MCH 28.8 pg (25.0-35.0); MCHC 34.1 g/dL (31.0-37.0); MCV 84.6 fL (80.0-100.0); Mean Platelet Volume 7.8; Monocytes # (A) 0.7 k/uL (0-1.0); Monocytes % (A) 8 %; Neutrophils # (A) 5.5 k/uL (1.3-7.7); Neutrophils % (A) 65 %; Platelet Count 285 k/uL (150-450); Poikilocytosis Slight; RDW 17.4 % (11.5-15.5); WBC 8.4 k/uL (3.8-10.6)
[2020-07-17 09:01] LABS: HGB 9.5 gm/dL (13.0-17.5)
[2020-07-17 09:10] LABS: Albumin 3.1 g/dL (3.5-5.0); Calcium 11.9 mg/dL (8.4-10.2); Magnesium 1.8 mg/dL (1.6-2.3); Potassium 3.3 mmol/L (3.5-5.1); Total Bilirubin 0.3 mg/dL (0.2-1.3); Total Protein 6.4 g/dL (6.3-8.2)
[2020-07-17 11:24] LABS: INR 0.9 (<1.2); Prothrombin Time 10.2 sec (9.0-12.0)
[2020-07-17 11:25] LABS: Partial Thromboplastin Time 17.6 sec (22.0-30.0)
[2020-07-17] MEDS ORDERED: HYDROmorphone 0.5 MG/0.5 ML SYRINGE IM STA (12:08)
[2020-07-17 13:45] VITALS: BP 161/78; PULSE 85; TEMP 98.2
== END 2020-07-17 13:43 | disposition home or self-care (01) ==
LOC: EC 07:14
DX: R31.9 Hematuria, unspecified (principal); D64.9 Anemia, unspecified; Z46.6 Encounter for fitting and adjustment of urinary device; E78.5 Hyperlipidemia, unspecified; I10 Essential (primary) hypertension; E07.9 Disorder of thyroid, unspecified; Z20.822 Contact with and (suspected) exposure to COVID-19; Z79.890 Hormone replacement therapy; Z79.899 Other long term (current) drug therapy; Z88.2 Allergy status to sulfonamides; Z88.8 Allergy status to other drugs, medicaments and biological substances; Z95.5 Presence of coronary angioplasty implant and graft; Z85.46 Personal history of malignant neoplasm of prostate; Z85.51 Personal history of malignant neoplasm of bladder; Z92.21 Personal history of antineoplastic chemotherapy
CPT/HCPCS: 36415; 93005; 86900; 86901; 80053; 83735; 84484; 85025; 85610; 85730; 86850; 87635; 99284; 96372; 51701; J1170

== ENCOUNTER 2020-07-21 16:33 | Inpatient (IN) | payer MEDICARE ==
[2020-07-21] MEDS ORDERED: SODIUM CHLORIDE 0.9% 1,000 ML IV STA (17:02)
[2020-07-21] MEDS ORDERED: SODIUM CHLORIDE 0.9% 500 ML 500 ML IV STA (17:02)
[2020-07-21 17:46] LABS: Anisocytosis Slight; Basophils # (A) 0.1 k/uL (0-0.2); Basophils % (A) 1 %; Eosinophils # (A) 0.1 k/uL (0-0.7); Eosinophils % (A) 1 %; Lymphocytes # (A) 1.8 k/uL (1.0-4.8); Lymphocytes % (A) 17 %; MCH 28.1 pg (25.0-35.0); MCHC 34.2 g/dL (31.0-37.0); MCV 82.2 fL (80.0-100.0); Mean Platelet Volume 7.4; Microcytosis Slight; Monocytes # (A) 0.7 k/uL (0-1.0); Monocytes % (A) 6 %; Neutrophils # (A) 7.5 k/uL (1.3-7.7); Neutrophils % (A) 73 %; Platelet Count 322 k/uL (150-450); Poikilocytosis Slight; RBC 1.61 m/uL (4.30-5.90); RDW 17.8 % (11.5-15.5); WBC 10.3 k/uL (3.8-10.6)
[2020-07-21 17:48] LABS: HCT 13.2 % (39.0-53.0); HGB 4.5 gm/dL (13.0-17.5)
[2020-07-21 17:52] LABS: Partial Thromboplastin Time 22.7 sec (22.0-30.0); Prothrombin Time 10.3 sec (9.0-12.0)
[2020-07-21 17:57] LABS: Albumin 2.8 g/dL (3.5-5.0); Calcium 10.3 mg/dL (8.4-10.2); Magnesium 2.2 mg/dL (1.6-2.3); Phosphorus 5.7 mg/dL (2.5-4.5); Potassium 5.6 mmol/L (3.5-5.1); Total Bilirubin 0.3 mg/dL (0.2-1.3); Total Protein 5.8 g/dL (6.3-8.2)
--- NOTE | 2020-07-21 19:24 | XR ---
EXAMINATION TYPE: XR chest 1V portable DATE OF EXAM: 07/21/2020 COMPARISON: 04/17/2020 HISTORY: Weakness TECHNIQUE: Single view FINDINGS: There is no heart failure nor confluent pneumonic infiltrate. There is poor inspiration. Th ere is right subclavian catheter with tip in the superior vena cava. There is left subclavian cathete r with tip in the right atrium. Bony thorax is intact. IMPRESSION: Poor inspiration similar to old exam. No heart failure.
--- NOTE | 2020-07-21 19:32 | CT ---
EXAMINATION TYPE: CT abdomen pelvis wo con DATE OF EXAM: 07/21/2020 COMPARISON: 06/03/2020 HISTORY: Abdominal pain CT DLP: 796.6 mGycm Automated exposure control for dose reduction was used. Lung bases are clear of consolidation. There is no pleural effusion. Heart is borderline enlarged. Th ere is no pericardial effusion. Liver and spleen are intact. The bile ducts are not dilated. Gallbladder is contracted. Stomach is in tact. There is no pancreatic mass. There is no adrenal mass. There is bilateral hydronephrosis and hydroureter. There is high attenuatio n in the urinary bladder. Urinary bladder wall is irregular. There are implants in the prostate. Ther e is no inguinal hernia. There is some mesenteric and retroperitoneal fat stranding in the mid and lo wer abdomen. There is suprapubic catheter in the urinary bladder. There is soft tissue air below the prostate implant seeds. This is in a patchy large area at the floor the pelvis. This is in the area o f the prostatic urethra and posterior urethra. There appears to be some surgical clips at the rectosi gmoid junction. The lumbar vertebra have normal alignment. There is no compression fracture. The posterior elements a re intact. The bony pelvis is intact. IMPRESSION: Irregular urinary bladder wall thickening on the floor and left lateral wall suggestive of tumor. Hig h attenuation in the bladder is consistent with hemorrhage. Soft tissue air bubbles at the floor the pelvis could relate to abscess involving the urethra and prostate. This appears improved compared to old exam. 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 There is bilateral hydronephrosis and hydroureter consistent with distal ureteral obstruction a t the level of the bladder and not significantly different than old exam.
[2020-07-21 19:36] LABS: Color,Urine Red; RBC,Urine >182 /hpf (0-5); WBC,Urine 94 /hpf (0-5)
[2020-07-21] MEDS ORDERED: MORPHINE SULFATE 2 MG/ML SYRINGE IVP STA (19:36)
[2020-07-21 19:37] LABS: Appearance,Urine Bloody (Clear)
--- NOTE | 2020-07-21 21:01 | ED ---
Weakness HPI - General Chief complaint: Weakness Stated complaint: Weakness Time Seen by Provider: 07/21/20 16:54 Source: patient, EMS Mode of arrival: EMS - History of Present Illness Initial comments: This 74-year-old white male presents via EMS with complaint of weakness. He, overall, is fairly poor historian and much of history is obtained from later presents. He apparently has been weak for the last 5 days ever since he was discharged from the half-way. He also has had gross hematuria present from his suprapubic catheter. No known blood from his colostomy. He is on blood thinners as well. He does complain of bilateral lower abdominal pain worse in the suprapubic region. He has a complex past oncology history and all details are not definitively determined. He apparently had prostate cancer now has bladder and/or colon cancer which is advanced. He is not currently on hospice but relates that she is agreeable to having hospice evaluate him. She does understand that his cancer is quite severe. He is a no CODE STATUS. She also relates a chronic perineal wound. He sees Dr. Arteaga from urology and Dr. Wen from oncology. She relates that he has had significant decrease in oral fluid intake over the last couple of days. They're not aware of all the details of his recent history. No other complaints or modifying factors. - Related Data Home Medications Medication Instructions Recorded Confirmed Levothyroxine Sodium 125 mcg PO DAILY@0600 11/15/14 07/17/20 Metoprolol Tartrate 25 mg PO BID 11/15/14 07/17/20 Isosorbide Mononitrate [Isosorbide 30 mg PO DAILY 09/13/19 07/17/20 Mononitrate ER] polyethylene glycoL 3350 [Miralax] 17 gm PO BID 04/10/20 07/17/20 Docusate [Colace] 100 mg PO BID 06/03/20 07/17/20 Acetaminophen [Tylenol 8 Hour] 650 mg PO Q6H PRN 07/10/20 07/17/20 Atorvastatin [Lipitor] 20 mg PO HS 07/10/20 07/17/20 Famotidine [Pepcid] 20 mg PO DAILY 07/10/20 07/17/20 Ferrous Sulfate [Iron (65 MG 325 mg PO DAILY 07/10/20 07/17/20 Elemental)] Lactose-Reduced Food [Ensure Plus] 240 ml PO TID 07/10/20 07/17/20 Magnesium Oxide [Magox 400] 400 mg PO DAILY 07/10/20 07/17/20 Melatonin 10 mg PO HS 07/10/20 07/17/20 QUEtiapine FUMARATE [SEROquel] 25 mg PO HS 07/10/20 07/17/20 Sennosides [Senna] 8.6 mg PO BID 07/10/20 07/17/20 Methadone [Dolophine] 5 mg PO BID@0300,1500 07/17/20 07/17/20 Previous Rx's Medication Instructions Recorded Rivaroxaban [Xarelto] 15 mg PO BID #0 07/11/20 oxyCODONE HCL [OxyIR] 5 mg PO Q4H PRN #4 tab 07/11/20 Allergies Allergy/AdvReac Type Severity Reaction Status Date / Time alendronate sodium Allergy Unknown Verified 07/17/20 08:51 Sulfa (Sulfonamide Allergy Itching/marko Verified 07/17/20 08:51 Antibiotics) h Review of Systems ROS Statement: Those systems with pertinent positive or pertinent negative responses have been documented in the HPI. ROS Other: All systems not noted in ROS Statement are negative. Past Medical History Past Medical History: Cancer, Hyperlipidemia, Hypertension, Thyroid Disorder Additional Past Medical History / Comment(s): PROSTATE CANCER WITH SEED IMPLANTS (07/06/2011), LOW THYROID, ANEMIA, HEMORRHOIDS, constipation. 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 suprapubic catheter placed Feb 19, 2020 History of Any Multi-Drug Resistant Organisms: None Reported Past Surgical History: Heart Catheterization Additional Past Surgical History / Comment(s): PROSTATE SEED IMPLANTS, COLONOSCOPY. Past Anesthesia/Blood Transfusion Reactions: No Reported Reaction, Motion Sickness Past Psychological History: No Psychological Hx Reported Smoking Status: Never smoker Past Alcohol Use History: Occasional Past Drug Use History: None Reported - Past Family History Mother Family Medical History: Hypertension Sister(s) Family Medical History: Cancer General Exam - General Exam Comments Initial Comments: GENERAL: The patient is well nourished and appears dehydrated. VITAL SIGNS: Heart rate, blood pressure, respiratory rate reviewed as recorded in nurse's notes. EYES: Pupils are round and reactive. Extraocular movements are intact. No conjunctival / lid redness or swelling. ENT: No external evidence of injury, swelling, or ecchymosis. Airway is patent. Throat is clear. Dry mucous membranes. NECK: Nontender. No swelling or evidence of injury. No subcutaneous emphysema. Trachea is midline. No thyroid mass. HEART: Regular rate and rhythm. Good peripheral pulses. LUNGS/CHEST: Breath sounds clear and equal bilaterally. No rales, rhonchi, or wheezes. No ecchymosis, subcutaneous emphysema, or tenderness. ABDOMEN: Tenderness noted to the bilateral lower abdomen worse at the suprapubic region. A suprapubic catheter and colostomy are present. No palpable masses or organomegaly. No peritoneal signs. No abdominal wall swelling or ecchymosis. EXTREMITIES: No extremity tenderness. Normal muscle tone and function. No thoracolumbar tenderness. NEUROLOGIC: Sensation is grossly intact. Cranial nerve exam reveals face is symmetrical, tongue is midline, speech is clear. Patient is alert and will wake up but overall is fairly drowsy and is a poor historian. SKIN: No abrasions or ecchymosis is noted. No induration or masses noted. Perineal wound noted. PSYCHIATRIC: Alert and oriented. Appropriate behavior and judgment. Drowsy at times. Course Vital Signs 07/21/20 07/21/20 16:34 18:36 Temperature 99.7 F H Pulse Rate 82 74 Respiratory 18 18 Rate Blood Pressure 134/113 122/48 O2 Sat by Pulse 93 L 98 Oximetry Medical Decision Making - Medical Decision Making The patient was seen and examined. All diagnostics were reviewed. He is placed on a satellite project site monitor and this shows a normal sinus rhythm. The EKG shows a normal sinus rhythm at a rate of 83. There is no acute ST T-wave changes noted. The OR intervals 200, QRS duration is 112, and the QTc interval 394. Multiple lab abnormalities are noted including anemia, hyponatremia, hypochloremia, decreased CO2, severe acute renal failure, hyperphosphatemia, hypercalcemia, and elevation of the TSH. Gross hematuria is noted on exam as well as the urinalysis. There is some moderate white blood cell noted. Rocephin is initiated. Ample IV fluid hydration was initiated as well. He is given 2 mg of morphine for pain with some moderate relief. Case is discussed with as well and she relates that they are amicable to a hospice consult. He is no CODE STATUS per . She is still agreeable to transfusion. The hemoglobin is low at 4.9 and he is transfused 3 units of packed red blood cells. The computed tomography scan of the abdomen and pelvis was done without contrast due to his renal failure this shows multiple abnormalities including thickening of the bladder consistent with tumor and associated hemorrhage. There is a possible pelvis abscess. There is possible rectourethral fistula. These appear to be findings that were present on previous examination and possibly improved. The C T also shows hydronephrosis and hydroureter consistent with obstruction of the ureter at the bladder level. Please see report for details. This likely is the cause of his renal failure. The chest x-ray shows poor inspiratory effort but no acute process. Overall, it appears as though his cancer has progressed with significant complications to the point that it is felt that he is severely ill and likely passed the point of recovery with any measures. The still would like him admitted and treated but he is in no CODE STATUS and hospice consult will be placed. Case is discussed with Dr. Collins and patient is admitted to service of Dr. Pollock. It is felt as though the patient has a very poor prognosis and understands. - Lab Data Result diagrams: 07/21/20 17:25 07/21/20 17:25 Lab Results 07/21/20 07/21/20 07/21/20 Range/Units 17:25 17:25 17:25 WBC 10.3 (3.8-10.6) k/uL RBC 1.61 L (4.30-5.90) m/uL Hgb 4.5 L* D (13.0-17.5) gm/dL Hct 13.2 L* (39.0-53.0) % MCV 82.2 (80.0-100.0) fL MCH 28.1 (25.0-35.0) pg MCHC 34.2 (31.0-37.0) g/dL RDW 17.8 H (11.5-15.5) % Plt Count 322 (150-450) k/uL MPV 7.4 Neutrophils % 73 % Lymphocytes % 17 % Monocytes % 6 % Eosinophils % 1 % Basophils % 1 % Neutrophils # 7.5 (1.3-7.7) k/uL Lymphocytes # 1.8 (1.0-4.8) k/uL Monocytes # 0.7 (0-1.0) k/uL Eosinophils # 0.1 (0-0.7) k/uL Basophils # 0.1 (0-0.2) k/uL Poikilocytosis Slight Anisocytosis Slight Microcytosis Slight PT 10.3 (9.0-12.0) sec INR 1.0 (<1.2) APTT 22.7 (22.0-30.0) sec Sodium 128 L (137-145) mmol/L Potassium 5.6 H (3.5-5.1) mmol/L Chloride 97 L (98-107) mmol/L Carbon Dioxide 21 L (22-30) mmol/L Anion Gap 10 mmol/L BUN 61 H (9-20) mg/dL Creatinine 6.90 H (0.66-1.25) mg/dL Est GFR (CKD-EPI)AfAm 8 (>60 ml/min/1.73 sqM) Est GFR (CKD-EPI)NonAf 7 (>60 ml/min/1.73 sqM) Glucose 90 (74-99) mg/dL Plasma Lactic Acid Bennie (0.7-2.0) mmol/L Calcium 10.3 H (8.4-10.2) mg/dL Phosphorus 5.7 H (2.5-4.5) mg/dL Magnesium 2.2 (1.6-2.3) mg/dL Total Bilirubin 0.3 (0.2-1.3) mg/dL AST 27 (17-59) U/L ALT 20 (4-49) U/L Alkaline Phosphatase 95 (38-126) U/L Total Protein 5.8 L (6.3-8.2) g/dL Albumin 2.8 L (3.5-5.0) g/dL TSH 40.900 H (0.465-4.680) mIU/L Urine Color Urine Appearance (Clear) Urine RBC (0-5) /hpf Urine WBC (0-5) /hpf Coronavirus (PCR) (Not Detectd) Blood Type Blood Type Recheck Bld Type Recheck Status Antibody Screen Crossmatch Spec Expiration Date 07/21/20 07/21/20 07/21/20 Range/Units 17:25 17:25 17:25 WBC (3.8-10.6) k/uL RBC (4.30-5.90) m/uL Hgb (13.0-17.5) gm/dL Hct (39.0-53.0) % MCV (80.0-100.0) fL MCH (25.0-35.0) pg MCHC (31.0-37.0) g/dL RDW (11.5-15.5) % Plt Count (150-450) k/uL MPV Neutrophils % % Lymphocytes % % Monocytes % % Eosinophils % % Basophils % % Neutrophils # (1.3-7.7) k/uL Lymphocytes # (1.0-4.8) k/uL Monocytes # (0-1.0) k/uL Eosinophils # (0-0.7) k/uL Basophils # (0-0.2) k/uL Poikilocytosis Anisocytosis Microcytosis PT (9.0-12.0) sec INR (<1.2) APTT (22.0-30.0) sec Sodium (137-145) mmol/L Potassium (3.5-5.1) mmol/L Chloride (98-107) mmol/L Carbon Dioxide (22-30) mmol/L Anion Gap mmol/L BUN (9-20) mg/dL Creatinine (0.66-1.25) mg/dL Est GFR (CKD-EPI)AfAm (>60 ml/min/1.73 sqM) Est GFR (CKD-EPI)NonAf (>60 ml/min/1.73 sqM) Glucose (74-99) mg/dL Plasma Lactic Acid Bennie 1.1 (0.7-2.0) mmol/L Calcium (8.4-10.2) mg/dL Phosphorus (2.5-4.5) mg/dL Magnesium (1.6-2.3) mg/dL Total Bilirubin (0.2-1.3) mg/dL AST (17-59) U/L ALT (4-49) U/L Alkaline Phosphatase (38-126) U/L Total Protein (6.3-8.2) g/dL Albumin (3.5-5.0) g/dL TSH (0.465-4.680) mIU/L Urine Color Urine Appearance (Clear) Urine RBC (0-5) /hpf Urine WBC (0-5) /hpf Coronavirus (PCR) Not Detected (Not Detectd) Blood Type A Positive Blood Type Recheck A Pos Bld Type Recheck Status No Antibody Screen NEGATIVE Crossmatch See Detail Spec Expiration Date 07/24/2020 - 232407/21/20 Range/Units 18:36 WBC (3.8-10.6) k/uL RBC (4.30-5.90) m/uL Hgb (13.0-17.5) gm/dL Hct (39.0-53.0) % MCV (80.0-100.0) fL MCH (25.0-35.0) pg MCHC (31.0-37.0) g/dL RDW (11.5-15.5) % Plt Count (150-450) k/uL MPV Neutrophils % % Lymphocytes % % Monocytes % % Eosinophils % % Basophils % % Neutrophils # (1.3-7.7) k/uL Lymphocytes # (1.0-4.8) k/uL Monocytes # (0-1.0) k/uL Eosinophils # (0-0.7) k/uL Basophils # (0-0.2) k/uL Poikilocytosis Anisocytosis Microcytosis PT (9.0-12.0) sec INR (<1.2) APTT (22.0-30.0) sec Sodium (137-145) mmol/L Potassium (3.5-5.1) mmol/L Chloride (98-107) mmol/L Carbon Dioxide (22-30) mmol/L Anion Gap mmol/L BUN (9-20) mg/dL Creatinine (0.66-1.25) mg/dL Est GFR (CKD-EPI)AfAm (>60 ml/min/1.73 sqM) Est GFR (CKD-EPI)NonAf (>60 ml/min/1.73 sqM) Glucose (74-99) mg/dL Plasma Lactic Acid Bennie (0.7-2.0) mmol/L Calcium (8.4-10.2) mg/dL Phosphorus (2.5-4.5) mg/dL Magnesium (1.6-2.3) mg/dL Total Bilirubin (0.2-1.3) mg/dL AST (17-59) U/L ALT (4-49) U/L Alkaline Phosphatase (38-126) U/L Total Protein (6.3-8.2) g/dL Albumin (3.5-5.0) g/dL TSH (0.465-4.680) mIU/L Urine Color Red Urine Appearance Bloody (Clear) Urine RBC >182 H (0-5) /hpf Urine WBC 94 H (0-5) /hpf Coronavirus (PCR) (Not Detectd) Blood Type Blood Type Recheck Bld Type Recheck Status Antibody Screen Crossmatch Spec Expiration Date Disposition Clinical Impression: Severe anemia, Acute kidney injury, Hydronephrosis, Weakness, Fistula, Abdominal abscess, Open wound of perineum, Hypochloremia, Hyponatremia, Dehydration, Hyperphosphatemia, Hypercalcemia, Hydroureter, Hypothyroidism, Cancer, Acute abdominal pain, Hematuria, Urinary tract infection, Do not intubate, cardiopulmonary resuscitation (CPR)-only code status Disposition: ADMITTED IP TO THIS [facility] Condition: Poor Is patient prescribed a controlled substance at d/c from ED?: No Referrals: Satish Alcala DO [Primary Care Provider] - 1-2 days Time of Disposition: 21:08 Decision Date: 07/21/20 Decision Time: 21:09
[2020-07-21] MEDS ORDERED: ACETAMINOPHEN TAB 325 MG TAB PO PRN (21:09)
[2020-07-21] MEDS ORDERED: NALOXONE 0.4 MG/ML 1 ML VIAL IV PRN (21:09)
[2020-07-21] MEDS ORDERED: ONDANSETRON 4 MG/2 ML VIAL IVP PRN (21:09)
[2020-07-21] MEDS ORDERED: NON FORMULARY DRUG (Lactose-Reduced Food [Ensure Plus] 237 ML Liquid) PO SCH (22:00)
[2020-07-22] MEDS: MORPHINE SULFATE 4 MG/ML SYRINGE IV PRN ×2 (01:35→06:28)
[2020-07-22] MEDS ORDERED: METHADONE 5 MG TAB PO SCH ×2 (03:00→11:00)
[2020-07-22] MEDS: PANTOPRAZOLE 40 MG/10 ML VIAL IV SCH ×2 (06:27→09:07)
[2020-07-22] MEDS: MAGNESIUM OXIDE 400 MG TAB PO SCH (09:04)
[2020-07-22] MEDS: DOCUSATE 100 MG CAP PO SCH ×2 (09:05→20:50)
[2020-07-22] MEDS: METOPROLOL TARTRATE 25 MG TAB PO SCH ×2 (09:05→20:50)
[2020-07-22] MEDS: LEVOTHYROXINE 125 MCG TAB PO SCH (09:06)
[2020-07-22] MEDS: ISOSORBIDE MONONITRATE ER 30 MG TAB.ER.24H PO SCH (09:06)
[2020-07-22] MEDS: SENNOSIDES 8.6 MG TAB PO SCH ×2 (09:07→20:49)
[2020-07-22] MEDS: polyethylene glycoL 3350 17 GM POWD.PACK PO SCH ×2 (09:07→20:50)
[2020-07-22] MEDS: FERROUS SULFATE 325 MG TAB PO SCH (09:07)
[2020-07-22 10:04] LABS: Anisocytosis Slight; Basophils # (A) 0.1 k/uL (0-0.2); Basophils % (A) 1 %; Eosinophils # (A) 0.1 k/uL (0-0.7); Eosinophils % (A) 1 %; HCT 24.5 % (39.0-53.0); Lymphocytes # (A) 1.8 k/uL (1.0-4.8); Lymphocytes % (A) 16 %; MCH 29.8 pg (25.0-35.0); MCHC 34.7 g/dL (31.0-37.0); MCV 85.9 fL (80.0-100.0); Mean Platelet Volume 7.1; Monocytes # (A) 0.8 k/uL (0-1.0); Monocytes % (A) 7 %; Neutrophils % (A) 74 %; Platelet Count 282 k/uL (150-450); Poikilocytosis Slight; RBC 2.85 m/uL (4.30-5.90); RDW 16.3 % (11.5-15.5); WBC 10.9 k/uL (3.8-10.6)
[2020-07-22 10:11] LABS: HGB 8.5 gm/dL (13.0-17.5)
[2020-07-22 10:18] LABS: Albumin 2.8 g/dL (3.5-5.0); Calcium 9.8 mg/dL (8.4-10.2); Potassium 5.5 mmol/L (3.5-5.1); Total Bilirubin 0.4 mg/dL (0.2-1.3)
--- NOTE | 2020-07-22 11:42 | P.CONS ---
History of Present Illness - Reason for Consult Consult date: 07/22/20 wound care - History of Present Illness This is a 74-year-old patient being seen by the wound care center in the emergency room for a nonhealing ulceration to the perineal. Patient states that the ulceration has been there since June 04. He has history of prostate cancer he received peripheral therapy. 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 Patient has been using packing to the site. His states that the ulceration has improved significantly. Patient has a nonhealing ulceration to the paranasal with fat layer exposure. Granulation seen throughout the wound bed with moderate Slough and nonviable tissue. The ulceration measures approximately 3 x 4 x 3.5 cm. No tunneling or undermining was noted upon examination. Significant amount of serosanguineous drainage noted. Patient's past medical history includes prostate cancer and radiation. Review Of Systems: Constitutional: No fever, no chills, no night sweats. No weight change. No weakness, fatigue or lethargy. No daytime sleepiness. Integumentary:reports wounds, no lesions. No rash or pruritus. No unusual bruising. No change in hair or nails. Physical exam: General Appearance: Alert, cooperative, no distress, appears stated age. Skin: See HPI all other Skin color, texture, tugor normal, no rashes or lesions. Neurologic: Alert oriented x3 Assessment: 1. Nonhealing ulceration with fatty layer exposure to perineal 2. Soft tissue radionecrosis Plan: 1. Absorptive silver rope, saline moistened gauze, dry gauze, ABDs secure with tape or brief. Change Tuesday. Patient would benefit from outpatient advance wound care which was discussed with patient and were agreeable upon discharge. We be happy to see him in the wound care center upon discharge. Discussed possible utilization of a negative pressure wound VAC however due to the location of the ulceration this may be difficult for a proper seal. This could be explored further and outpatient setting. Also discussed utilizing hyperbaric oxygen therapy to assist with closure to the site. Thank you for the consultation any questions please contact the wound care center DNP note has been reviewed and discussed with Dr. Magana and the impression and plan of care has been directed as dictated. Past Medical History Past Medical History: Cancer, Hyperlipidemia, Hypertension, Thyroid Disorder Additional Past Medical History / Comment(s): PROSTATE CANCER WITH SEED IMPLANTS (07/06/2011), LOW THYROID, ANEMIA, HEMORRHOIDS, constipation. 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 suprapubic catheter placed Feb 19, 2020 History of Any Multi-Drug Resistant Organisms: None Reported Past Surgical History: Heart Catheterization Additional Past Surgical History / Comment(s): PROSTATE SEED IMPLANTS, COLONOSCOPY. Past Anesthesia/Blood Transfusion Reactions: No Reported Reaction, Motion Sickness Past Psychological History: No Psychological Hx Reported Smoking Status: Never smoker Past Alcohol Use History: Occasional Past Drug Use History: None Reported - Past Family History Mother Family Medical History: Hypertension Sister(s) Family Medical History: Cancer Medications and Allergies Home Medications Medication Instructions Recorded Confirmed Type Levothyroxine Sodium 125 mcg PO DAILY 11/15/14 07/21/20 History Metoprolol Tartrate 25 mg PO BID 11/15/14 07/21/20 History Isosorbide Mononitrate [Isosorbide 30 mg PO DAILY 09/13/19 07/21/20 History Mononitrate ER] polyethylene glycoL 3350 [Miralax] 17 gm PO BID 04/10/20 07/21/20 History Docusate [Colace] 100 mg PO BID 06/03/20 07/21/20 History Acetaminophen [Tylenol 8 Hour] 650 mg PO Q6H PRN 07/10/20 07/21/20 History Atorvastatin [Lipitor] 20 mg PO HS 07/10/20 07/21/20 History Famotidine [Pepcid] 20 mg PO DAILY 07/10/20 07/21/20 History Ferrous Sulfate [Iron (65 MG 325 mg PO DAILY 07/10/20 07/21/20 History Elemental)] Magnesium Oxide [Magox 400] 400 mg PO DAILY 07/10/20 07/21/20 History Melatonin 10 mg PO HS 07/10/20 07/21/20 History QUEtiapine FUMARATE [SEROquel] 25 mg PO HS 07/10/20 07/21/20 History Sennosides [Senna] 8.6 mg PO BID 07/10/20 07/21/20 History Rivaroxaban [Xarelto] 15 mg PO BID #0 07/11/20 07/21/20 Rx oxyCODONE HCL [OxyIR] 5 mg PO Q4H PRN #4 tab 07/11/20 07/21/20 Rx Methadone [Dolophine] 5 mg PO BID 07/17/20 07/21/20 History Allergies Allergy/AdvReac Type Severity Reaction Status Date / Time alendronate sodium Allergy Unknown Verified 07/21/20 21:56 Sulfa (Sulfonamide Allergy Itching/marko Verified 07/21/20 21:56 Antibiotics) h Physical Exam Vitals: Vital Signs Temp Pulse Resp BP Pulse Ox 07/22/20 10:00 74 22 137/63 99 07/22/20 09:00 78 23 131/70 95 07/22/20 08:00 76 16 132/72 97 07/22/20 07:38 76 12 99 07/22/20 07:36 97.9 F 76 18 127/72 99 07/22/20 05:20 98.0 F 81 18 119/67 98 07/22/20 04:50 97.7 F 78 18 138/66 98 07/22/20 04:38 97.6 F 79 20 137/66 98 07/22/20 04:12 97.8 F 79 18 129/67 98 07/22/20 03:45 78 20 121/60 100 07/22/20 03:15 79 20 129/62 97 07/22/20 02:45 79 20 130/61 97 07/22/20 02:15 80 18 137/63 99 07/22/20 01:43 98.8 F 80 20 130/62 97 07/22/20 01:20 98.8 F 80 20 136/61 98 07/22/20 01:09 98.8 F 80 20 109/61 98 07/22/20 00:59 98.7 F 81 20 120/56 99 07/22/20 00:52 98.7 F 81 20 113/57 99 07/22/20 00:11 98.3 F 81 18 121/57 99 07/21/20 22:48 81 18 112/56 98 07/21/20 22:26 98.9 F 82 18 128/53 99 07/21/20 21:56 97.7 F 82 20 106/51 98 07/21/20 21:46 97.7 F 82 18 116/50 98 07/21/20 21:41 97.9 F 81 18 112/59 07/21/20 21:00 80 20 106/70 98 07/21/20 18:36 74 18 122/48 98 07/21/20 16:34 99.7 F H 82 18 134/113 93 L Intake and Output 07/21/20 07/22/20 07/22/20 22:59 06:59 14:59 Intake Total 0 310 310 Balance 0 310 310 Intake: Blood Product 0 310 310 Rc As-1 Unit 0 310 [id number] Rc As-1 Unit 310 [id number] Rc As-1 Unit 0 0 [id number] Other: Weight 81.647 kg Results CBC & Chem 7: 07/22/20 09:34 07/22/20 09:34 Labs: Abnormal Lab Results - Last 24 Hours (Table) 07/21/20 07/21/20 07/21/20 Range/Units 17:25 17:25 17:25 WBC (3.8-10.6) k/uL RBC 1.61 L (4.30-5.90) m/uL Hgb 4.5 L* D (13.0-17.5) gm/dL Hct 13.2 L* (39.0-53.0) % RDW 17.8 H (11.5-15.5) % Neutrophils # (1.3-7.7) k/uL Sodium 128 L (137-145) mmol/L Potassium 5.6 H (3.5-5.1) mmol/L Chloride 97 L (98-107) mmol/L Carbon Dioxide 21 L (22-30) mmol/L BUN 61 H (9-20) mg/dL Creatinine 6.90 H (0.66-1.25) mg/dL Calcium 10.3 H (8.4-10.2) mg/dL Phosphorus 5.7 H (2.5-4.5) mg/dL Total Protein 5.8 L (6.3-8.2) g/dL Albumin 2.8 L (3.5-5.0) g/dL TSH 40.900 H (0.465-4.680) mIU/L Urine RBC (0-5) /hpf Urine WBC (0-5) /hpf Crossmatch See Detail 07/21/20 07/22/20 07/22/20 Range/Units 18:36 09:34 09:34 WBC 10.9 H (3.8-10.6) k/uL RBC 2.85 L (4.30-5.90) m/uL Hgb 8.5 L D (13.0-17.5) gm/dL Hct 24.5 L (39.0-53.0) % RDW 16.3 H (11.5-15.5) % Neutrophils # 8.0 H (1.3-7.7) k/uL Sodium 129 L (137-145) mmol/L Potassium 5.5 H (3.5-5.1) mmol/L Chloride (98-107) mmol/L Carbon Dioxide 18 L (22-30) mmol/L BUN 64 H (9-20) mg/dL Creatinine 7.45 H* (0.66-1.25) mg/dL Calcium (8.4-10.2) mg/dL Phosphorus (2.5-4.5) mg/dL Total Protein 6.0 L (6.3-8.2) g/dL Albumin 2.8 L (3.5-5.0) g/dL TSH (0.465-4.680) mIU/L Urine RBC >182 H (0-5) /hpf Urine WBC 94 H (0-5) /hpf Crossmatch Microbiology - Last 24 Hours (Table) 07/21/20 18:36 Urine Culture - Preliminary Urine,Voided Assessment and Plan (1) Nonhealing skin ulcer with fat layer exposed Current Visit: Yes Status: Acute Code(s): L98.492 - NON-PRS CHRONIC ULCER OF SKIN OF SITES W FAT LAYER EXPOSED SNOMED Code(s): 97507891 (2) Soft tissue radionecrosis Current Visit: Yes Status: Acute Code(s): L59.8 - OTH DISRD OF THE SKIN, SUBCU RELATED TO RADIATION; Y84.2 - RADIOLOG PROC/RADIOTHRPY CAUSE ABN REACT/COMPL, W/O MISADVNT SNOMED Code(s): 89852548
--- NOTE | 2020-07-22 15:10 | P.CONS ---
History of Present Illness - Reason for Consult Consult date: 07/22/20 bladder carcinoma, complications Requesting physician: Bgodan Jean - Chief Complaint abd pain, severe anemia, bleeding around urostomy and hematuria - History of Present Illness Mister Aguilar is a very pleasant patient of Dr. Pascual, initially referred because of persistent anemia. In January 2020 his hemoglobin was 11.6 with a low MCV, slightly elevated platelet count, iron saturation 11.2%. Colonoscopy 09/14/19 was normal, had another in September 2019, also normal. Started oral iron therapy, stopped due to constipation. He had brachytherapy for prostate cancer in 2011. He started having recurrent urinary tract infections in May 2019. He was treated with antibiotics, Christie catheter then suprapubic catheter placed 02/19/20. In February 2020 iron studies showed a low iron sat O ferritin was elevated. Patient is also experiencing unintentional weight loss and rectal pain. CT CAP 03/04/20 showed a new soft tissue mass in the prostate bed, 4.8 x 5 x 4 cm and a 2.2 cm right infrahilar node. PET scan 03/07/20 showed uptake in the infrahilar region as well as a pelvic node. PSA was less than 0.1. 03/24/20 repeat sigmoidoscopy, Mass. found, biopsy positive for urothelial carcinoma. 04/18/20 bronchoscopy of the right infrahilar node, positive for metastatic urothelial carcinoma.He was referred to [facility] for second opinion. Systemic therapy with dose dense M VAC or cisplatin and Gemzar was recommended. 04/28/20 he started dose dense M VAC. He was unable to tolerate. He was placed on cisplatin and Gemzar. He was last seen in the office 05/28/20 after his first day 1 and 8 cycle. Complaints of persistent lower pelvic pain, diarrhea, poor oral intake. Patient was hydrated. 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 Diagnosed with a DVT of the right posterior tibial veins, peroneal vein, left g astrocnemius vein, posterior tibial veins, peroneal vein and soleus sinus on 06/05/20. He was put on Xarelto. Last dose of anticoagulation with Xarelto was on Tuesday. He presents to the emergency department with complaints of profound fatigue and bleeding. Hemoglobin was noted to be 4.5. Transfused with [address] AP shows blood in the bladder, some ureteral obstruction but, states it's no different than previously. Patient was also noted to have a creatinine of 6.9, sodium 128, potassium 5.6, TSH 40. His WBC was only mildly elevated at 10.3, platelets normal. When seen patient's pain is currently under control, he continues to have copious amounts of blood in his urinary collection device, there is blood all around the dressing at his suprapubic catheter, he denies any pain at the ostomy site, the ostomy has been productive, not aware of any other bleeding. No recen t fevers, chills, appetite is fair to poor, he actually is about 1-1/2 weeks out from being home from two-week stay in rehabilitation. He started getting weak very quickly after discharge from rehabilitation. He is requiring assistance with most of his ADLs currently. Review of Systems 10 point ROS is neg except as stated in HPI Past Medical History Past Medical History: Cancer, Hyperlipidemia, Hypertension, Thyroid Disorder Additional Past Medical History / Comment(s): PROSTATE CANCER WITH SEED IMPLANTS (07/06/2011), LOW THYROID, ANEMIA, HEMORRHOIDS, constipation. 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 suprapubic catheter placed Feb 19, 2020 History of Any Multi-Drug Resistant Organisms: None Reported Past Surgical History: Heart Catheterization Additional Past Surgical History / Comment(s): PROSTATE SEED IMPLANTS, COLONOSCOPY. Past Anesthesia/Blood Transfusion Reactions: No Reported Reaction, Motion Sickness Past Psychological History: No Psychological Hx Reported Smoking Status: Never smoker Past Alcohol Use History: Occasional Past Drug Use History: None Reported - Past Family History Mother Family Medical History: Hypertension Sister(s) Family Medical History: Cancer Father Family Medical History: Hyperlipidemia, Hypertension Medications and Allergies Home Medications Medication Instructions Recorded Confirmed Type Levothyroxine Sodium 125 mcg PO DAILY 11/15/14 07/21/20 History Metoprolol Tartrate 25 mg PO BID 11/15/14 07/21/20 History Isosorbide Mononitrate [Isosorbide 30 mg PO DAILY 09/13/19 07/21/20 History Mononitrate ER] polyethylene glycoL 3350 [Miralax] 17 gm PO BID 04/10/20 07/21/20 History Docusate [Colace] 100 mg PO BID 06/03/20 07/21/20 History Acetaminophen [Tylenol 8 Hour] 650 mg PO Q6H PRN 07/10/20 07/21/20 History Atorvastatin [Lipitor] 20 mg PO HS 07/10/20 07/21/20 History Famotidine [Pepcid] 20 mg PO DAILY 07/10/20 07/21/20 History Ferrous Sulfate [Iron (65 MG 325 mg PO DAILY 07/10/20 07/21/20 History Elemental)] Magnesium Oxide [Magox 400] 400 mg PO DAILY 07/10/20 07/21/20 History Melatonin 10 mg PO HS 07/10/20 07/21/20 History QUEtiapine FUMARATE [SEROquel] 25 mg PO HS 07/10/20 07/21/20 History Sennosides [Senna] 8.6 mg PO BID 07/10/20 07/21/20 History Rivaroxaban [Xarelto] 15 mg PO BID #0 07/11/20 07/21/20 Rx oxyCODONE HCL [OxyIR] 5 mg PO Q4H PRN #4 tab 07/11/20 07/21/20 Rx Methadone [Dolophine] 5 mg PO BID 07/17/20 07/21/20 History Allergies Allergy/AdvReac Type Severity Reaction Status Date / Time alendronate sodium Allergy Unknown Verified 07/21/20 21:56 Sulfa (Sulfonamide Allergy Itching/marko Verified 07/21/20 21:56 Antibiotics) h Physical Exam Vitals: Vital Signs Temp Pulse Resp BP Pulse Ox 07/22/20 07:36 97.9 F 76 18 127/72 99 07/22/20 05:20 98.0 F 81 18 119/67 98 07/22/20 04:50 97.7 F 78 18 138/66 98 07/22/20 04:38 97.6 F 79 20 137/66 98 07/22/20 04:12 97.8 F 79 18 129/67 98 07/22/20 03:45 78 20 121/60 100 07/22/20 03:15 79 20 129/62 97 07/22/20 02:45 79 20 130/61 97 07/22/20 02:15 80 18 137/63 99 07/22/20 01:43 98.8 F 80 20 130/62 97 07/22/20 01:20 98.8 F 80 20 136/61 98 07/22/20 01:09 98.8 F 80 20 109/61 98 07/22/20 00:59 98.7 F 81 20 120/56 99 07/22/20 00:52 98.7 F 81 20 113/57 99 07/22/20 00:11 98.3 F 81 18 121/57 99 07/21/20 22:48 81 18 112/56 98 07/21/20 22:26 98.9 F 82 18 128/53 99 07/21/20 21:56 97.7 F 82 20 106/51 98 07/21/20 21:46 97.7 F 82 18 116/50 98 07/21/20 21:41 97.9 F 81 18 112/59 07/21/20 21:00 80 20 106/70 98 07/21/20 18:36 74 18 122/48 98 07/21/20 16:34 99.7 F H 82 18 134/113 93 L Intake and Output 07/21/20 07/22/20 07/22/20 22:59 06:59 14:59 Intake Total 0 310 310 Balance 0 310 310 Intake: Blood Product 0 310 310 Rc As-1 Unit 0 310 [id number] Rc As-1 Unit 310 [id number] Rc As-1 Unit 0 0 [id number] Other: Weight 81.647 kg - Constitutional General appearance: average body habitus, cooperative, no acute distress - EENT Eyes: anicteric sclerae, EOMI ENT: hearing grossly normal, normal oropharynx - Neck Neck: no lymphadenopathy - Respiratory Respiratory: bilateral: CTA - Cardiovascular Rhythm: regular Heart sounds: normal: S1, S2 Abnormal Heart Sounds: no systolic murmur, no diastolic murmur, no rub, no S3 Gallop, no S4 Gallop, no click, no other leg Peripheral Edema: bilateral: None - Gastrointestinal Lt side ostomy, brown semisolid stool, suprapubic cath, bloody dressing, hematuria General gastrointestinal: no absent bowel sounds, no decreased bowel sounds, no distended, no hepatomegaly, no hyperactive bowel sounds, normal bowel sounds, no organomegaly, no rigid, no scaphoid, soft, no splenomegaly, no tenderness, no umbilical hernia, no ventral hernia - Integumentary Integumentary: pale - Neurologic Neurologic: CNII-XII intact - Musculoskeletal Musculoskeletal: generalized weakness - Psychiatric Psychiatric: A&O x's 3, appropriate affect, intact judgment & insight Results CBC & Chem 7: 07/22/20 09:34 07/22/20 09:34 Labs: Abnormal Lab Results - Last 24 Hours (Table) 07/21/20 07/21/20 07/21/20 Range/Units 17:25 17:25 17:25 RBC 1.61 L (4.30-5.90) m/uL Hgb 4.5 L* D (13.0-17.5) gm/dL Hct 13.2 L* (39.0-53.0) % RDW 17.8 H (11.5-15.5) % Sodium 128 L (137-145) mmol/L Potassium 5.6 H (3.5-5.1) mmol/L Chloride 97 L (98-107) mmol/L Carbon Dioxide 21 L (22-30) mmol/L BUN 61 H (9-20) mg/dL Creatinine 6.90 H (0.66-1.25) mg/dL Calcium 10.3 H (8.4-10.2) mg/dL Phosphorus 5.7 H (2.5-4.5) mg/dL Total Protein 5.8 L (6.3-8.2) g/dL Albumin 2.8 L (3.5-5.0) g/dL TSH 40.900 H (0.465-4.680) mIU/L Urine RBC (0-5) /hpf Urine WBC (0-5) /hpf Crossmatch See Detail 07/21/20 Range/Units 18:36 RBC (4.30-5.90) m/uL Hgb (13.0-17.5) gm/dL Hct (39.0-53.0) % RDW (11.5-15.5) % Sodium (137-145) mmol/L Potassium (3.5-5.1) mmol/L Chloride (98-107) mmol/L Carbon Dioxide (22-30) mmol/L BUN (9-20) mg/dL Creatinine (0.66-1.25) mg/dL Calcium (8.4-10.2) mg/dL Phosphorus (2.5-4.5) mg/dL Total Protein (6.3-8.2) g/dL Albumin (3.5-5.0) g/dL TSH (0.465-4.680) mIU/L Urine RBC >182 H (0-5) /hpf Urine WBC 94 H (0-5) /hpf Crossmatch Microbiology - Last 24 Hours (Table) 07/21/20 18:36 Urine Culture - Preliminary Urine,Voided Chest x-ray: report reviewed CT scan - abdomen: report reviewed CT scan - pelvis: report reviewed Assessment and Plan (1) Severe anemia Narrative/Plan: S/P 2 unit of PRBCs. Continue to transfuse to keep hemoglobin greater than 7 unless patient is symptomatic. Gross hematuria and bleeding around suprapubic catheter. Urology consulted Current Visit: Yes Status: Acute Priority: High Code(s): D64.9 - ANEMIA, UNSPECIFIED SNOMED Code(s): 470223995 (2) Acute abdominal pain Narrative/Plan: Same pain pt has had previously. History of a fistula. ID consulted. Pain is currently managed. Colostomy has soft brown stool Urostomy has bloody urine Current Visit: Yes Status: Acute Priority: High Code(s): R10.9 - UNSPECIFIED ABDOMINAL PAIN SNOMED Code(s): 293742633 (3) Fistula Narrative/Plan: History of the same. Suspicious findings on CT, Infectious Disease consulted Current Visit: Yes Status: Acute Priority: High Code(s): L98.8 - OTH DISRD OF THE SKIN AND SUBCUTANEOUS TISSUE SNOMED Code(s): 599262372 (4) Hematuria Current Visit: Yes Status: Acute Priority: High Code(s): R31.9 - HEMATURIA, UNSPECIFIED SNOMED Code(s): 59757392 (5) DVT (deep venous thrombosis) Narrative/Plan: Diagnosed 06/05/20, bilateral. Patient has been on anticoagulation with Xarelto. Last dose was on Tuesday. Due to gross bleeding stop anticoagulation. Due to recent DVT and likely not going to be able to anticoagulate recommendation is for IVC filter placement. Consultation for the same. Current Visit: Yes Status: Acute Priority: High Code(s): I82.409 - ACUTE EMBOLISM AND THOMBOS UNSP DEEP VN UNSP LOWER EXTREMITY SNOMED Code(s): 901654372 Plan: Dr. Pro discussed with the patient and his concerns for overall poor performance status and multiple complicated medical issues. In patient's current condition is not a candidate for treatment of malignancy. If infection is found and can be treated and other medical issues are able to be corrected then he can possibly participate rehab. Then he can see if he can become a candidate for further treatment. Unfortunately though, if patient's multiple complex medical issues are not able to be resolved adequately to to the point that his PS improves he is not going to be able to be treated for cancer. Recommendation is for palliative care-then pt could seek medical treatment and see how he does or hospice care- goal to treat symptoms and keep him comfortable. Patient and would like an informational session regarding both options. attests: I preformed H&P and seen and examined patient, developed impression and plan of care. Discussed with dictator. Agree with documentation, documented as a scribe
[2020-07-22] MEDS: SODIUM CHLORIDE 0.9% 1,000 ML IV SCH (18:44)
--- NOTE | 2020-07-22 19:27 | P.GSCN ---
History of Present Illness Consult date: 07/22/20 Reason for Consult: Gross Hematuria History of present illness: This is a 74 yo male with a very complicated urological history He presented to the hospital with gross hematuria and LETICIA. Hx of prostate cancer underwent brachytherapy in 2009. He followus up with Dr Hardy assumed the patients care. 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 He was sent to [facility] for a pelvic exenteration but due to poor health this was not achieved. of note he had hx of urethral stricture and his urine draining is managed by SPT. 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 He eventually underwent a colostomy and has a suprapubic tube. ON presentation to the ED his hgb was 4.5 of note he does have chronic anemia. He received 3 uRBC and hemoglobin responded to 8.5. Of note his creat is 6.9 from baseline of 1.3-1.6. He underwent a CT on presentation which showed evidence of thickening within the bladder, with blood clots within the bladder lumen, also evidence of bilateral hydronephrosis, which is stable compared to CT from 05/2020. Catheter in placed drainining dark red urine. He is on anticogulation for hx of DVT. Review of Systems - Constitutional Reports weakness, Denies chills, Denies fever - EENT Ears, nose, mouth and throat: Denies dysphagia - Cardiovascular Denies chest pain, Denies shortness of breath - Respiratory Denies cough, Denies dyspnea - Gastrointestinal Reports abdominal pain, Reports loss of appetite, Denies hematochezia, Denies na usea, Denies vomiting - Genitourinary Reports hematuria, Denies flank pain - Neurological Denies headaches, Denies syncope Past Medical History Past Medical History: Cancer, Hyperlipidemia, Hypertension, Thyroid Disorder Additional Past Medical History / Comment(s): PROSTATE CANCER WITH SEED IMPLANTS (07/06/2011), LOW THYROID, ANEMIA, HEMORRHOIDS, constipation. 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 suprapubic catheter placed Feb 19, 2020 History of Any Multi-Drug Resistant Organisms: None Reported Past Surgical History: Heart Catheterization Additional Past Surgical History / Comment(s): PROSTATE SEED IMPLANTS, COLONOSCOPY. Past Anesthesia/Blood Transfusion Reactions: No Reported Reaction, Motion Sickness Past Psychological History: No Psychological Hx Reported Smoking Status: Never smoker Past Alcohol Use History: Occasional Past Drug Use History: None Reported - Past Family History Mother Family Medical History: Hypertension Father Family Medical History: Hyperlipidemia, Hypertension Sister(s) Family Medical History: Cancer Medications and Allergies Home Medications Medication Instructions Recorded Confirmed Type Levothyroxine Sodium 125 mcg PO DAILY 11/15/14 07/21/20 History Metoprolol Tartrate 25 mg PO BID 11/15/14 07/21/20 History Isosorbide Mononitrate [Isosorbide 30 mg PO DAILY 09/13/19 07/21/20 History Mononitrate ER] polyethylene glycoL 3350 [Miralax] 17 gm PO BID 04/10/20 07/21/20 History Docusate [Colace] 100 mg PO BID 06/03/20 07/21/20 History Acetaminophen [Tylenol 8 Hour] 650 mg PO Q6H PRN 07/10/20 07/21/20 History Atorvastatin [Lipitor] 20 mg PO HS 07/10/20 07/21/20 History Famotidine [Pepcid] 20 mg PO DAILY 07/10/20 07/21/20 History Ferrous Sulfate [Iron (65 MG 325 mg PO DAILY 07/10/20 07/21/20 History Elemental)] Magnesium Oxide [Magox 400] 400 mg PO DAILY 07/10/20 07/21/20 History Melatonin 10 mg PO HS 07/10/20 07/21/20 History QUEtiapine FUMARATE [SEROquel] 25 mg PO HS 07/10/20 07/21/20 History Sennosides [Senna] 8.6 mg PO BID 07/10/20 07/21/20 History Rivaroxaban [Xarelto] 15 mg PO BID #0 07/11/20 07/21/20 Rx oxyCODONE HCL [OxyIR] 5 mg PO Q4H PRN #4 tab 07/11/20 07/21/20 Rx Methadone [Dolophine] 5 mg PO BID 07/17/20 07/21/20 History Allergies Allergy/AdvReac Type Severity Reaction Status Date / Time alendronate sodium Allergy Unknown Verified 07/21/20 21:56 Sulfa (Sulfonamide Allergy Itching/marko Verified 07/21/20 21:56 Antibiotics) h Surgical - Exam Vital Signs Temp Pulse Resp BP Pulse Ox 99.7 F H 82 18 134/113 93 L 07/21/20 16:34 07/21/20 16:34 07/21/20 16:34 07/21/20 16:34 07/21/20 16:34 - General moderate distress, no pain, chronically ill - Eyes PERRL, normal ocular movement, pale - ENT normal nares, normal mucosa - Respiratory normal expansion, normal respiratory effort - Abdomen Abdomen: soft, tender (tenderness along the lower quadrant ) - Psychiatric oriented to time, oriented to person, oriented to place Results - Labs 07/22/20 09:34 07/22/20 09:34 Abnormal Lab Results - Last 24 Hours (Table) 07/21/20 07/21/20 07/22/20 Range/Units 17:25 18:36 09:34 WBC 10.9 H (3.8-10.6) k/uL RBC 2.85 L (4.30-5.90) m/uL Hgb 8.5 L D (13.0-17.5) gm/dL Hct 24.5 L (39.0-53.0) % RDW 16.3 H (11.5-15.5) % Neutrophils # 8.0 H (1.3-7.7) k/uL Sodium (137-145) mmol/L Potassium (3.5-5.1) mmol/L Carbon Dioxide (22-30) mmol/L BUN (9-20) mg/dL Creatinine (0.66-1.25) mg/dL Total Protein (6.3-8.2) g/dL Albumin (3.5-5.0) g/dL Urine RBC >182 H (0-5) /hpf Urine WBC 94 H (0-5) /hpf Crossmatch See Detail 07/22/20 Range/Units 09:34 WBC (3.8-10.6) k/uL RBC (4.30-5.90) m/uL Hgb (13.0-17.5) gm/dL Hct (39.0-53.0) % RDW (11.5-15.5) % Neutrophils # (1.3-7.7) k/uL Sodium 129 L (137-145) mmol/L Potassium 5.5 H (3.5-5.1) mmol/L Carbon Dioxide 18 L (22-30) mmol/L BUN 64 H (9-20) mg/dL Creatinine 7.45 H* (0.66-1.25) mg/dL Total Protein 6.0 L (6.3-8.2) g/dL Albumin 2.8 L (3.5-5.0) g/dL Urine RBC (0-5) /hpf Urine WBC (0-5) /hpf Crossmatch Microbiology - Last 24 Hours (Table) 07/21/20 18:36 Urine Culture - Preliminary Urine,Voided Diabetes panel 07/22/20 Range/Units 09:34 Sodium 129 L (137-145) mmol/L Potassium 5.5 H (3.5-5.1) mmol/L Chloride 99 (98-107) mmol/L Carbon Dioxide 18 L (22-30) mmol/L BUN 64 H (9-20) mg/dL Creatinine 7.45 H* (0.66-1.25) mg/dL Glucose 99 (74-99) mg/dL Calcium 9.8 (8.4-10.2) mg/dL AST 30 (17-59) U/L ALT 19 (4-49) U/L Alkaline Phosphatase 97 (38-126) U/L Total Protein 6.0 L (6.3-8.2) g/dL Albumin 2.8 L (3.5-5.0) g/dL Calcium panel 07/22/20 Range/Units 09:34 Calcium 9.8 (8.4-10.2) mg/dL Albumin 2.8 L (3.5-5.0) g/dL Pituitary panel 07/22/20 Range/Units 09:34 Sodium 129 L (137-145) mmol/L Potassium 5.5 H (3.5-5.1) mmol/L Chloride 99 (98-107) mmol/L Carbon Dioxide 18 L (22-30) mmol/L BUN 64 H (9-20) mg/dL Creatinine 7.45 H* (0.66-1.25) mg/dL Glucose 99 (74-99) mg/dL Calcium 9.8 (8.4-10.2) mg/dL Adrenal panel 07/22/20 Range/Units 09:34 Sodium 129 L (137-145) mmol/L Potassium 5.5 H (3.5-5.1) mmol/L Chloride 99 (98-107) mmol/L Carbon Dioxide 18 L (22-30) mmol/L BUN 64 H (9-20) mg/dL Creatinine 7.45 H* (0.66-1.25) mg/dL Glucose 99 (74-99) mg/dL Calcium 9.8 (8.4-10.2) mg/dL Total Bilirubin 0.4 (0.2-1.3) mg/dL AST 30 (17-59) U/L ALT 19 (4-49) U/L Alkaline Phosphatase 97 (38-126) U/L Total Protein 6.0 L (6.3-8.2) g/dL Albumin 2.8 L (3.5-5.0) g/dL Assessment and Plan Assessment: This is a 74 yo male with a very complicated urological history He presented to the hospital with gross hematuria and LETICIA. hx of poorly differentiated urothelial ca, complicated by rectal vesicle fistula. He eventually underwent a colostomy and has a suprapubic tube. ON presentation to the ED his hgb was 4.5 of note he does have chronic anemia. He received 3 uRBC and hemoglobin responded to 8.5. His creat is 6.9 from baseline of 1.3-1.6. He underwent a CT on presentation which showed evidence of thickening within the bladder, with blood clots within the bladder lumen, also evidence of bilateral hydronephrosis, which is stable compared to CT from 05/2020. Catheter in placed drainining dark red urine. SPT is draining and consistent of old blood clots. Hospice is consulted, patient is poor candidate for any definitive treatment -Irrigate ordaz q4 PRN -repeat CBC in am -given his urethral stricture a ordaz catheter can not be placed -Hold anticogulation -F/U on Nephrology recs, His hydronephrosis is fairly stable, if creat fails to improve despite hydration, correction of anemia might require PCN. at this time will continue to trend creat -Will reassess tomorrow .
--- NOTE | 2020-07-22 19:59 | P.HPIM ---
History of Present Illness H&P Date: 07/22/20 Chief Complaint: Increasing confusion History of presenting complaint: This is a 74-year-old patient who follows with Dr. Alcala. His oncologist is Dr. Vallejo. As per oncology notes: "In January 2020 his hemoglobin was 11.6 with a low MCV, slightly elevated platelet count, iron saturation 11.2%. Colonoscopy 09/14/19 was normal, had another in September 2019, also normal. Started oral iron therapy, stopped due to constipation. He had brachytherapy for prostate cancer in 2011. He started having recurrent urinary tract infections in May 2019. He was treated with antibiotics, Christie catheter then suprapubic catheter placed 02/19/20. In February 2020 iron studies showed a low iron sat O ferritin was elevated. Patient is also experiencing unintentional weight loss and rectal pain. CT CAP 03/04/20 showed a new soft tissue mass in the prostate bed, 4.8 x 5 x 4 cm and a 2.2 cm right infrahilar node. PET scan 03/07/20 showed uptake in the infrahilar region as well as a pelvic node. PSA was less than 0.1. 03/24/20 repeat sigmoidoscopy, Mass. found, biopsy positive for urothelial carcinoma. 04/18/20 bronchoscopy of the right infrahilar node, positive for metastatic urothelial carcinoma.He was referred to [facility] for second opinion. Systemic therapy with dose dense M VAC or cisplatin and Gemzar was recommended. 04/28/20 he started dose dense M VAC. He was unable to tolerate. He was placed on cisplatin and Gemzar. He was last seen in the office 05/28/20 after his first day 1 and 8 cycle. Complaints of persistent lower pelvic pain, diarrhea, poor oral intake. Patient was hydrated. 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 Diagnosed with a DVT of the right posterior tibial veins, peroneal vein, left gastrocnemius vein, posterior tibial veins, peroneal vein and soleus sinus on 06/05/20. He was put on Xarelto." Patient had been 6 weeks at [place]. Then the patient was transferred to [facility] for rehab. Subsequently the patient been home. Patient has been having a fair oral intake up, 34 days ago. Has been using a walker. Lastly for his having increasing confusion. Hematuria for 3-4 days. No urine output. Has been increasingly confused. No obvious fever and chills. Hemoglobin the ER was 4.5. 2 units of blood was ordered. Patient also found to be an acute kidney injury. Most of the history is a pain by the son at the bedside. Patient himself is rather delirious. Review of systems: GEN.: Tired confused decreased oral intake EYES: None HEENT: None NECK: None RESPIRATORY: None CARDIOVASCULAR: None GASTROINTESTINAL: None GENITOURINARY: Hematuria MUSCULOSKELETAL: None LYMPHATICS: None HEMATOLOGICAL: None PSYCHIATRY: Confused NEUROLOGICAL: None Past medical history to include: Hypertension, hyperlipidemia, hypothyroid, prostate cancer, hemorrhoids, carcinoma of the bladder with chemotherapy, suprapubic catheter since February 2020 Social history: This with his . Does use a walker. Recently discharged from [facility]. Nonsmoker. Alcohol occasional. Physical examination: VITAL SIGNS: 99.7, 82, 18, 122/48, 98% room air GENERAL: BMI 27.4, laying in bed, delirious. EYES: [Pupils equal. Conjunctiva pale. HEENT: External appearance of nose and normal, oral cavity grossly normal. NECK: JVD not raised; masses not palpable. HEART: First and second heart sounds are normal; no edema. LUNGS: Respiratory rate normal; decreased breath sounds. ABDOMEN: Soft, nontender, liver spleen not palpable, no masses palpable, suprapubic catheter. PSYCH: Altered sensorium, May answer occasional questionl. NEUROLOGICAL: Cranial nerves grossly intact; no facial asymmetry, power and sensation grossly intact. LYMPHATICS: No lymph nodes palpable in the axilla and neck INVESTIGATIONS, reviewed in the clinical context: WBC 10.9 hemoglobin 8.5 platelets 282 potassium 5.5 bun 64 creatinine 7.45 Admitting labs: WBC 10.3 hemoglobin 4.5 platelets 322 potassium 5.6 bun 61 creatinine 6.90 Phosphorus 5.7 Albumin 2.8 Coronavirus [PCF]-not detected EKG tracing personally reviewed by me-normal sinus rhythm CT abdomen pelvis without contrast: Irregular urinary bladder wall thickening of the floor left lateral wall suggestive of tumor. Evidence of hemorrhage. Soft tissue air bubbles of the floor of the pelvis could relate to abscess involving the urethra in the prostate. Bilateral hydronephrosis and hydroureter consistent with distal ureter obstruction level of the bladder Chest x-ray film personally reviewed by me-portable/lung redman clear Assessment and plan: -Advancing metastatic urothelial carcinoma. Status post chemotherapy. Being followed by Dr. Vallejo. Currently the patient is rather weak for any chemotherapy. -Acute obstructive renal failure due to malignancy in the bladder and blood clots. There may be a prerenal component. Patient will be given IV fluids and treated. Consultation both to urology and nephrology -Acute severe blood loss anemia from severe hematuria from underlying malignancy. Patient was given 3 units of blood. -Acute delirium from metabolic encephalopathy from uremia -Hyperlipidemia Patient on Lipitor -Essential hypertension Currently blood pressures running of the lower side. Hold off metoprolol -Hypothyroid Continue with Synthroid -Suprapubic catheter placed because of urothelial cancer -Hyperkalemia due to acute kidney injury Hopefully will improve with improvement of renal function -Hyponatremia with hypovolemia with decreased solute intake Normal saline infusion -Chronic pain for which patient is on methadone. Given patient's acute delirium and severe renal failure we'll hold off the same. Prognosis not good. Consultation made to nephrology, urology, oncology. Care was discussed at length with the patient's son at the bedside. IV fluids. Follow H&H. Hold off on Xarelto for now. We will await further assessment by oncology in context of the new developments and go from there. Given the complexity and severity of patient's condition expect the patient to be in the hospital at least for 2 overnights Past Medical History Past Medical History: Cancer, Hyperlipidemia, Hypertension, Thyroid Disorder Additional Past Medical History / Comment(s): PROSTATE CANCER WITH SEED IMPLANTS (07/06/2011), LOW THYROID, ANEMIA, HEMORRHOIDS, constipation. 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 suprapubic catheter placed Feb 19, 2020 History of Any Multi-Drug Resistant Organisms: None Reported Past Surgical History: Heart Catheterization Additional Past Surgical History / Comment(s): PROSTATE SEED IMPLANTS, COLONOSCOPY. Past Anesthesia/Blood Transfusion Reactions: No Reported Reaction, Motion Sickness Past Psychological History: No Psychological Hx Reported Smoking Status: Never smoker Past Alcohol Use History: Occasional Past Drug Use History: None Reported - Past Family History Mother Family Medical History: Hypertension Sister(s) Family Medical History: Cancer Father Family Medical History: Hyperlipidemia, Hypertension Medications and Allergies Home Medications Medication Instructions Recorded Confirmed Type Levothyroxine Sodium 125 mcg PO DAILY 11/15/14 07/21/20 History Metoprolol Tartrate 25 mg PO BID 11/15/14 07/21/20 History Isosorbide Mononitrate [Isosorbide 30 mg PO DAILY 09/13/19 07/21/20 History Mononitrate ER] polyethylene glycoL 3350 [Miralax] 17 gm PO BID 04/10/20 07/21/20 History Docusate [Colace] 100 mg PO BID 06/03/20 07/21/20 History Acetaminophen [Tylenol 8 Hour] 650 mg PO Q6H PRN 07/10/20 07/21/20 History Atorvastatin [Lipitor] 20 mg PO HS 07/10/20 07/21/20 History Famotidine [Pepcid] 20 mg PO DAILY 07/10/20 07/21/20 History Ferrous Sulfate [Iron (65 MG 325 mg PO DAILY 07/10/20 07/21/20 History Elemental)] Magnesium Oxide [Magox 400] 400 mg PO DAILY 07/10/20 07/21/20 History Melatonin 10 mg PO HS 07/10/20 07/21/20 History QUEtiapine FUMARATE [SEROquel] 25 mg PO HS 07/10/20 07/21/20 History Sennosides [Senna] 8.6 mg PO BID 07/10/20 07/21/20 History Rivaroxaban [Xarelto] 15 mg PO BID #0 07/11/20 07/21/20 Rx oxyCODONE HCL [OxyIR] 5 mg PO Q4H PRN #4 tab 07/11/20 07/21/20 Rx Methadone [Dolophine] 5 mg PO BID 07/17/20 07/21/20 History Allergies Allergy/AdvReac Type Severity Reaction Status Date / Time alendronate sodium Allergy Unknown Verified 07/21/20 21:56 Sulfa (Sulfonamide Allergy Itching/marko Verified 07/21/20 21:56 Antibiotics) h Physical Exam Vitals: Vital Signs Temp Pulse Resp BP Pulse Ox 07/22/20 07:36 97.9 F 76 18 127/72 99 07/22/20 05:20 98.0 F 81 18 119/67 98 07/22/20 04:50 97.7 F 78 18 138/66 98 07/22/20 04:38 97.6 F 79 20 137/66 98 07/22/20 04:12 97.8 F 79 18 129/67 98 07/22/20 03:45 78 20 121/60 100 07/22/20 03:15 79 20 129/62 97 07/22/20 02:45 79 20 130/61 97 07/22/20 02:15 80 18 137/63 99 07/22/20 01:43 98.8 F 80 20 130/62 97 07/22/20 01:20 98.8 F 80 20 136/61 98 07/22/20 01:09 98.8 F 80 20 109/61 98 07/22/20 00:59 98.7 F 81 20 120/56 99 07/22/20 00:52 98.7 F 81 20 113/57 99 07/22/20 00:11 98.3 F 81 18 121/57 99 07/21/20 22:48 81 18 112/56 98 07/21/20 22:26 98.9 F 82 18 128/53 99 07/21/20 21:56 97.7 F 82 20 106/51 98 07/21/20 21:46 97.7 F 82 18 116/50 98 07/21/20 21:41 97.9 F 81 18 112/59 07/21/20 21:00 80 20 106/70 98 07/21/20 18:36 74 18 122/48 98 07/21/20 16:34 99.7 F H 82 18 134/113 93 L Intake and Output 07/21/20 07/22/20 07/22/20 22:59 06:59 14:59 Intake Total 0 310 310 Balance 0 310 310 Intake: Blood Product 0 310 310 Rc As-1 Unit 0 310 [id number] Rc As-1 Unit 310 [id number] Rc As-1 Unit 0 0 [id number] Other: Weight 81.647 kg Results CBC & Chem 7: 07/22/20 09:34 07/22/20 09:34 Labs: Abnormal Lab Results - Last 24 Hours (Table) 07/21/20 07/21/20 07/21/20 Range/Units 17:25 17:25 17:25 WBC (3.8-10.6) k/uL RBC 1.61 L (4.30-5.90) m/uL Hgb 4.5 L* D (13.0-17.5) gm/dL Hct 13.2 L* (39.0-53.0) % RDW 17.8 H (11.5-15.5) % Neutrophils # (1.3-7.7) k/uL Sodium 128 L (137-145) mmol/L Potassium 5.6 H (3.5-5.1) mmol/L Chloride 97 L (98-107) mmol/L Carbon Dioxide 21 L (22-30) mmol/L BUN 61 H (9-20) mg/dL Creatinine 6.90 H (0.66-1.25) mg/dL Calcium 10.3 H (8.4-10.2) mg/dL Phosphorus 5.7 H (2.5-4.5) mg/dL Total Protein 5.8 L (6.3-8.2) g/dL Albumin 2.8 L (3.5-5.0) g/dL TSH 40.900 H (0.465-4.680) mIU/L Urine RBC (0-5) /hpf Urine WBC (0-5) /hpf Crossmatch See Detail 07/21/20 07/22/20 Range/Units 18:36 09:34 WBC 10.9 H (3.8-10.6) k/uL RBC 2.85 L (4.30-5.90) m/uL Hgb 8.5 L D (13.0-17.5) gm/dL Hct 24.5 L (39.0-53.0) % RDW 16.3 H (11.5-15.5) % Neutrophils # 8.0 H (1.3-7.7) k/uL Sodium (137-145) mmol/L Potassium (3.5-5.1) mmol/L Chloride (98-107) mmol/L Carbon Dioxide (22-30) mmol/L BUN (9-20) mg/dL Creatinine (0.66-1.25) mg/dL Calcium (8.4-10.2) mg/dL Phosphorus (2.5-4.5) mg/dL Total Protein (6.3-8.2) g/dL Albumin (3.5-5.0) g/dL TSH (0.465-4.680) mIU/L Urine RBC >182 H (0-5) /hpf Urine WBC 94 H (0-5) /hpf Crossmatch Microbiology - Last 24 Hours (Table) 07/21/20 18:36 Urine Culture - Preliminary Urine,Voided
[2020-07-22] MEDS: MELATONIN 5 MG TABLET PO SCH (20:49)
[2020-07-22] MEDS: QUEtiapine 25 MG TAB PO SCH (20:49)
[2020-07-22] MEDS: ATORVASTATIN 20 MG TAB PO SCH (20:49)
--- NOTE | 2020-07-22 23:35 | CONS ---
CONSULTATION DATE OF SERVICE: 07/22/2020 REASON FOR CONSULTATION: infection and a question of abdominal abscess. HISTORY OF PRESENT ILLNESS: The patient is a 74-year-old male with a complicated past medical history in this patient who did have a history of prostate cancer and has been recently diagnosed with bladder cancer. The patient was also noted to have a colovesical fistula, for which the patient was recently admitted at [facility]. The patient is status post diverting colostomy and an abscess that was drained. The patient has been on IV antibiotic in the form of Zosyn, which the patient recently completed last Tuesday. The PICC line was not removed and apparently the patient was supposed to have ID physician from [place] yesterday. However, the patient has been very weak in the last few days, not making sense, and he did have worsening hematuria, for which the patient was brought into [facility] ER. On arrival in the ER, the patient did have a low-grade fever of 99.7 degrees Fahrenheit. The patient was anemic with hemoglobin 4.5 that required blood transfusion also noted to have acute renal failure with a creatinine of 6.90. The patient did have a UA that shows mostly hematuria with 94 WBCs. Choe PCR was negative. The patient did have a CT of abdomen and pelvis that shows urinary bladder wall thickening on the floor and lateral wall suggestive of tumor; high attenuation in the bladder is considered hemorrhage. Soft tissue bubbles in the floor of the pelvis could related to abscess involving the urethra and prostate. Infection Disease was asked for further evaluation. Most of the information has been obtained from review of the chart and talking with the patient's son, as the patient himself is of not a reliable historian. When asked specifically, he knows that he is in the hospital. He denies having any head. No chest pain or shortness of breath or cough. He did complain of low abdominal pain, more a dull aching no radiation. His main concern has been hematuria that apparently was getting worse for the last few days. REVIEW OF SYSTEMS: Positive points have been mentioned in the HPI. Rest of the systems are negative. PAST MEDICAL HISTORY: Prostate cancer, bladder cancer with local extension, colovesical fistula, abscess, hypertension, hyperlipidemia, hypothyroidism. PAST SURGICAL HISTORY: Heart catheterization, prostate seed implants, colonoscopy, recent laparotomy and diverting colostomy, suprapubic catheter placement. SOCIAL HISTORY: No history of smoking. Occasionally drinks. No drug use. FAMILY HISTORY: Sister with a history of cancer. ALLERGIES: SULFA and ALENDRONATE. MEDICATIONS: The patient is on Tylenol, Lipitor, Colace, iron sulfate, Imdur, Synthroid, magnesium oxide, melatonin, Lopressor, morphine sulfate, Narcan, Zofran, Protonix, Maalox, Seroquel, Senokot, IV fluid. PHYSICAL EXAMINATION: Blood pressure 124/54 with a pulse of 71, temperature 98. He is 98% on room air. General description is an elderly male lying in bed in no distress. No tachypnea or accessory muscle of respiration use. HEENT: Examination shows pallor. No scleral icterus. Oral mucous membrane is dry. NECK: Trachea is central. No thyromegaly. LUNGS: Unlabored breathing. Clear to auscultation anteriorly. No wheeze or crackle. HEART: S1, S2. Regular rate and rhythm. ABDOMEN: Soft. Midline incision is healed. Suprapubic catheter with hematuria. EXTREMITIES: No edema of the feet. SKIN EXAMINATION: No rash or mass palpable. Neurologically the patient is awake, alert, oriented . Mood and affect normal. LABS: Hemoglobin 8.5, white count 10.9, BUN of 64, creatinine 7.45. CT report mentioned above. DIAGNOSTIC IMPRESSION AND PLAN: Patient admitted to hospital with mental status changes, weakness and hematuria in this patient with a history of bladder cancer. The patient did have a complication with evidence of colovesical fistula requiring laparotomy and diverting colostomy, and there was a pelvic abscess, for which the patient has received a few weeks of antibiotic therapy that was completed on last Tuesday. Patient currently with no fever or elevated white count. CT did show overall improvement of the pelvic floor. Clinically not behaving as an abscess or infection in part of the body. Concern is for possible PICC line infection. It has been there for a couple of weeks now. PLAN: 1. We will monitor the patient closely off antibiotic therapy. 2. If the spikes any fever or any other changes, we may obtain cultures before starting antibiotics. 3. In view of advanced cancer as well as evidence of multi-organ failure, the patient may be a good candidate for hospice. Will discuss further with admitting. 4. Will follow his clinical condition and further adjust medication if needed. Thank you for this consultation. Will follow this patient along with you. CHRISTIAN / SHARON: [id number] /
[2020-07-23] MEDS: SODIUM CHLORIDE 0.9% 1,000 ML IV SCH ×3 (03:09→14:22)
[2020-07-23] MEDS: LEVOTHYROXINE 125 MCG TAB PO SCH (06:50)
[2020-07-23] MEDS: MORPHINE SULFATE 4 MG/ML SYRINGE IV PRN ×3 (08:21→21:10)
[2020-07-23] MEDS: FERROUS SULFATE 325 MG TAB PO SCH (08:48)
[2020-07-23] MEDS: DOCUSATE 100 MG CAP PO SCH ×2 (08:48→21:10)
[2020-07-23] MEDS: METOPROLOL TARTRATE 25 MG TAB PO SCH ×2 (08:49→21:10)
[2020-07-23] MEDS: ISOSORBIDE MONONITRATE ER 30 MG TAB.ER.24H PO SCH (08:49)
[2020-07-23] MEDS: MAGNESIUM OXIDE 400 MG TAB PO SCH (08:49)
[2020-07-23] MEDS: SENNOSIDES 8.6 MG TAB PO SCH ×2 (08:51→21:10)
[2020-07-23 08:58] LABS: Anisocytosis Slight; HCT 23.4 % (39.0-53.0); HGB 8.1 gm/dL (13.0-17.5); MCH 30.3 pg (25.0-35.0); MCHC 34.9 g/dL (31.0-37.0); MCV 86.7 fL (80.0-100.0); Mean Platelet Volume 7.2; Platelet Count 279 k/uL (150-450); Poikilocytosis Slight; RBC 2.69 m/uL (4.30-5.90); RDW 16.6 % (11.5-15.5); WBC 9.7 k/uL (3.8-10.6)
[2020-07-23 09:02] LABS: Calcium 9.8 mg/dL (8.4-10.2); Potassium 5.4 mmol/L (3.5-5.1)
[2020-07-23] MEDS: PANTOPRAZOLE 40 MG/10 ML VIAL IV SCH (09:22)
--- NOTE | 2020-07-23 10:06 | P.PN ---
Subjective Progress Note Date: 07/23/20 Patient is in the hospital with anemia. He has been transfused a hemoglobin of 8.5 which is stable. He has old blood in his suprapubic tube. 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 He was referred for a pelvic exoneration but due to multiple medical issues he is not a candidate for surgery. Her oncology due to his medical illnesses he is not a candidate for anal therapy. If the patient does have renal failure and the question is whether nephrostomy tubes would be of benefit. If the patient is on hospice I do not recommend this. I will discuss this with as he is much more familiar with this situation. Objective - Vital Signs Vital signs: Vital Signs Temp 95.6 F L 07/23/20 07:47 Pulse 69 07/23/20 07:47 Resp 16 07/23/20 07:47 BP 124/58 07/23/20 07:47 Pulse Ox 99 07/23/20 07:47 Intake & Output 07/22/20 07/23/20 07/23/20 18:59 06:59 18:59 Intake Total 310 120 Balance 310 120 Weight 81.647 kg 82.2 kg Intake: Oral 120 Blood Product 310 Rc As-1 Unit 310 [id number] - Labs CBC & Chem 7: 07/23/20 08:12 07/23/20 08:12 Labs: Abnormal Lab Results - Last 24 Hours (Table) 07/22/20 07/22/20 07/23/20 Range/Units 09:34 09:34 08:12 WBC 10.9 H (3.8-10.6) k/uL RBC 2.85 L 2.69 L (4.30-5.90) m/uL Hgb 8.5 L D 8.1 L (13.0-17.5) gm/dL Hct 24.5 L 23.4 L (39.0-53.0) % RDW 16.3 H 16.6 H (11.5-15.5) % Neutrophils # 8.0 H (1.3-7.7) k/uL Sodium 129 L (137-145) mmol/L Potassium 5.5 H (3.5-5.1) mmol/L Carbon Dioxide 18 L (22-30) mmol/L BUN 64 H (9-20) mg/dL Creatinine 7.45 H* (0.66-1.25) mg/dL Total Protein 6.0 L (6.3-8.2) g/dL Albumin 2.8 L (3.5-5.0) g/dL 07/23/20 Range/Units 08:12 WBC (3.8-10.6) k/uL RBC (4.30-5.90) m/uL Hgb (13.0-17.5) gm/dL Hct (39.0-53.0) % RDW (11.5-15.5) % Neutrophils # (1.3-7.7) k/uL Sodium 129 L (137-145) mmol/L Potassium 5.4 H (3.5-5.1) mmol/L Carbon Dioxide 18 L (22-30) mmol/L BUN 63 H (9-20) mg/dL Creatinine 7.91 H* (0.66-1.25) mg/dL Total Protein (6.3-8.2) g/dL Albumin (3.5-5.0) g/dL Microbiology - Last 24 Hours (Table) 07/21/20 17:25 Blood Culture - Preliminary Blood No Growth after 24 hours 07/21/20 18:36 Urine Culture - Final Urine,Voided
--- NOTE | 2020-07-23 10:43 | P.NPCON ---
History of Present Illness - Reason for Consult acute renal failure - History of Present Illness Reason for consultation: Acute kidney injury History of present illness: Patient is a 74-year-old male seen in renal consultation for acute kidney injury. Patient is not a very reliable historian and history was obtained mostly from the chart. Patient has history of prostate and bladder cancer and has a colostomy as well as a suprapubic catheter. He presented to the hospital with abdominal discomfort. He's been passing blood clots in the Christie catheter. CT of the abdomen showed thickening within the bladder and bilateral hydronephrosis. Nephrostomy tubes are being considered. Hemoglobin was 4.5 on admission and he has received multiple units of blood transfusion. Hemoglobin 8.1 this morning. Creatinine was 6.9 on admission and is 7.9 today. Baseline creatinine appears to be 1.3-1.5 from May and July 2020. He is currently maintained on normal saline at 130 mL an hour. I don't see any nonsteroidals and his home medications. No history of diabetes. Blood pressure stable. Patient is oliguric. Vital signs are stable. General: The patient appeared well nourished and normally developed. HEENT: Head exam is unremarkable. Neck is without jugular venous distension. LUNGS: Breath sounds decreased. HEART: Rate and Rhythm are regular. ABDOMEN: Soft, no distention. Suprapubic catheter and colostomy noted. EXTREMITITES: No edema. Past Medical History Past Medical History: Cancer, Hyperlipidemia, Hypertension, Thyroid Disorder Additional Past Medical History / Comment(s): PROSTATE CANCER WITH SEED IMPLANTS (07/06/2011), LOW THYROID, ANEMIA, HEMORRHOIDS, constipation. 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 suprapubic catheter placed Feb 19, 2020 History of Any Multi-Drug Resistant Organisms: None Reported Past Surgical History: Heart Catheterization Additional Past Surgical History / Comment(s): PROSTATE SEED IMPLANTS, COLONOSCOPY. Past Anesthesia/Blood Transfusion Reactions: No Reported Reaction, Motion Sickness Past Psychological History: No Psychological Hx Reported Smoking Status: Never smoker Past Alcohol Use History: Occasional Past Drug Use History: None Reported - Past Family History Mother Family Medical History: Hypertension Father Family Medical History: Hyperlipidemia, Hypertension Sister(s) Family Medical History: Cancer Medications and Allergies Home Medications Medication Instructions Recorded Confirmed Type Levothyroxine Sodium 125 mcg PO DAILY 11/15/14 07/21/20 History Metoprolol Tartrate 25 mg PO BID 11/15/14 07/21/20 History Isosorbide Mononitrate [Isosorbide 30 mg PO DAILY 09/13/19 07/21/20 History Mononitrate ER] polyethylene glycoL 3350 [Miralax] 17 gm PO BID 04/10/20 07/21/20 History Docusate [Colace] 100 mg PO BID 06/03/20 07/21/20 History Acetaminophen [Tylenol 8 Hour] 650 mg PO Q6H PRN 07/10/20 07/21/20 History Atorvastatin [Lipitor] 20 mg PO HS 07/10/20 07/21/20 History Famotidine [Pepcid] 20 mg PO DAILY 07/10/20 07/21/20 History Ferrous Sulfate [Iron (65 MG 325 mg PO DAILY 07/10/20 07/21/20 History Elemental)] Magnesium Oxide [Magox 400] 400 mg PO DAILY 07/10/20 07/21/20 History Melatonin 10 mg PO HS 07/10/20 07/21/20 History QUEtiapine FUMARATE [SEROquel] 25 mg PO HS 07/10/20 07/21/20 History Sennosides [Senna] 8.6 mg PO BID 07/10/20 07/21/20 History Rivaroxaban [Xarelto] 15 mg PO BID #0 07/11/20 07/21/20 Rx oxyCODONE HCL [OxyIR] 5 mg PO Q4H PRN #4 tab 07/11/20 07/21/20 Rx Methadone [Dolophine] 5 mg PO BID 07/17/20 07/21/20 History Allergies Allergy/AdvReac Type Severity Reaction Status Date / Time alendronate sodium Allergy Unknown Verified 07/21/20 21:56 Sulfa (Sulfonamide Allergy Itching/marko Verified 07/21/20 21:56 Antibiotics) h Physical Exam Vitals: Vital Signs Temp Pulse Pulse Resp BP BP Pulse Ox 07/23/20 07:47 95.6 F L 69 16 124/58 99 07/23/20 04:00 98.1 F 75 16 140/65 97 07/22/20 23:25 98.4 F 68 17 135/69 98 07/22/20 20:00 98.7 F 80 18 149/71 99 07/22/20 18:41 71 16 124/54 98 07/22/20 13:16 66 16 124/89 98 Intake and Output 07/22/20 07/23/20 07/23/20 22:59 06:59 14:59 Intake Total 120 Balance 120 Intake: Oral 120 Other: Weight 82.2 kg Results - Lab Results Most recent lab results Calcium 9.8 mg/dL (8.4-10.2) 07/23/20 08:12 Phosphorus 5.7 mg/dL (2.5-4.5) H 07/21/20 17:25 Magnesium 2.2 mg/dL (1.6-2.3) 07/21/20 17:25 07/23/20 08:12 07/23/20 08:12 Assessment and Plan Plan: Assessment: 1. Acute kidney injury secondary to ATN from acute blood loss anemia and obstructive uropathy. Creatinine 6.9 on admission and is 7.9 today. Oliguric. 2. Acute blood loss anemia status post blood transfusions. Hemoglobin 8.1 this morning. 3. Bilateral hydronephrosis. Urology following. Nephrostomy tubes being considered. However patient is a poor candidate for surgery. 4. Hyponatremia secondary to acute kidney injury. 5. Metabolic acidosis secondary to acute kidney injury and IV fluids. 6. History of prostate and urothelial cancer. 7. Mild hyperkalemia secondary to acute kidney injury and metabolic acidosis. 8. Rule out chronic kidney disease. Patient's creatinine in April 2020 was 1.0 since then it's been in the range of 1.3-1.9. Plan: Decrease rate of normal saline to 100 mL an hour. Add oral bicarb. Encourage oral intake. Avoid nephrotoxins. Overall prognosis is poor. Patient is not a candidate for long-term renal replacement therapy due to advanced malignancy. Hospice is being considered. If family and patient choose not to proceed with hospice, then obstruction will need to be relieved. Thank you for the consultation. I will continue to follow the patient with you during his hospital stay.
[2020-07-23] MEDS: SODIUM BICARBONATE TAB 650 MG TAB PO SCH ×2 (11:31→14:48)
[2020-07-23] MEDS: polyethylene glycoL 3350 17 GM POWD.PACK PO SCH ×2 (11:36→21:11)
--- NOTE | 2020-07-23 15:21 | P.PN ---
Subjective Progress Note Date: 07/23/20 Principal diagnosis: sequela of metastatic bladder cancer In follow-up today patient is laying in bed, he drifts to sleep during our conversation. he has mild abdominal discomfort, he does not feel that his abdomen is bloated, he denies any nausea, fevers, no other pain to report. Objective - Vital Signs Vital signs: Vital Signs Temp 97.5 F L 07/23/20 11:30 Pulse 61 07/23/20 11:30 Resp 15 07/23/20 11:30 BP 116/65 07/23/20 11:30 Pulse Ox 97 07/23/20 11:30 Intake & Output 07/22/20 07/23/20 07/23/20 18:59 06:59 18:59 Intake Total 310 120 980 Balance 310 120 980 Weight 81.647 kg 82.2 kg Intake: IV 800 0.9 @ 100 mL/hr 800 Oral 120 180 Blood Product 310 Rc As-1 Unit 310 [id number] Other: Voiding Method Indwelling Catheter - Constitutional General appearance: Present: average body habitus, cooperative, no acute distress - EENT EENT Comment(s): dry mouth, no ulcer Eyes: Present: anicteric sclerae ENT: Present: hearing grossly normal - Respiratory Details: weak inspiratory effort, clear to auscultation, a few scattered crackles - Cardiovascular Heart sounds: normal: S1, S2 Abnormal Heart Sounds: Absent: systolic murmur, diastolic murmur, rub, S3 Gallop, S4 Gallop, click, other - Peripheral edema leg Peripheral Edema: bilateral: Trace - Gastrointestinal Gastrointestinal Comment(s): abdomen is not warm to the touch, patient does not exhibit signs or symptoms of unrealistic pain with palpation General gastrointestinal: Present: soft, tenderness (around ostomy and suprapubic catheter sites) - Integumentary Integumentary: Present: pale - Musculoskeletal Musculoskeletal: Present: generalized weakness - Psychiatric Psychiatric Comment(s): patient is a pleasant, very drowsy - Labs CBC & Chem 7: 07/23/20 08:12 07/23/20 08:12 Labs: Abnormal Lab Results - Last 24 Hours (Table) 07/23/20 07/23/20 Range/Units 08:12 08:12 RBC 2.69 L (4.30-5.90) m/uL Hgb 8.1 L (13.0-17.5) gm/dL Hct 23.4 L (39.0-53.0) % RDW 16.6 H (11.5-15.5) % Sodium 129 L (137-145) mmol/L Potassium 5.4 H (3.5-5.1) mmol/L Carbon Dioxide 18 L (22-30) mmol/L BUN 63 H (9-20) mg/dL Creatinine 7.91 H* (0.66-1.25) mg/dL Microbiology - Last 24 Hours (Table) 07/21/20 17:25 Blood Culture - Preliminary Blood No Growth after 24 hours 07/21/20 18:36 Urine Culture - Final Urine,Voided Assessment and Plan (1) Severe anemia Narrative/Plan: S/P 3 unit of PRBCs with an appropriate response in hemoglobin. Gross hematuria persists with small amount of bleeding around suprapubic catheter. stool in colostomy is soft and brown Current Visit: Yes Status: Acute Priority: High Code(s): D64.9 - ANEMIA, UNSPECIFIED SNOMED Code(s): 927771225 (2) Acute abdominal pain Narrative/Plan: Same pain pt has had previously. History of a fistula. ID consulted. Pain is currently managed. Current Visit: Yes Status: Acute Priority: High Code(s): R10.9 - UN SPECIFIED ABDOMINAL PAIN SNOMED Code(s): 965614828 (3) Fistula Narrative/Plan: History of the same. Suspicious findings on CT, Infectious Disease consulted Current Visit: Yes Status: Acute Priority: High Code(s): L98.8 - OTH DISRD OF THE SKIN AND SUBCUTANEOUS TISSUE SNOMED Code(s): 554189958 (4) Hematuria Current Visit: Yes Status: Acute Priority: High Code(s): R31.9 - HEMATURIA, UNSPECIFIED SNOMED Code(s): 17728023 (5) DVT (deep venous thrombosis) Narrative/Plan: Diagnosed 06/05/20, bilateral. Patient has been on anticoagulation with Xarelto. Last dose was on Tuesday. Due to gross bleeding stop anticoagulation. Due to recent DVT and likely not going to be able to anticoagulate recommendation is for IVC filter placement. Consultation was not entered correctly yesterday. Order has been placed correctly, anticipate insertion in the near future Current Visit: Yes Status: Acute Priority: High Code(s): I82.409 - ACUTE EMBOLISM AND THOMBOS UNSP DEEP VN UNSP LOWER EXTREMITY SNOMED Code(s): 793378425 Plan: Below was discussed with the patient and yesterday in ER. Dr. Wen spoke with the patient's son on the phone last night. Hospice is appropriate. I did not speak to the today know if she met with hospice yesterday. Dr. Pro discussed with the patient and his concerns for overall poor performance status and multiple complicated medical issues. In patient's current condition is not a candidate for treatment of malignancy. If infection is found and can be treated and other medical issues are able to be corrected then he can possibly participate rehab. Then can see if he can become a candidate for further treatment. Unfortunately though, if patient's multiple complex medical issues are not able to be resolved adequately to to the point that his PS improves he is not going to be able to be treated for cancer. Recommendation is for palliative care-then pt could seek medical treatment and see how he does or hospice care- goal to treat symptoms and keep him comfortable. Patient and would like an informational session regarding both options.
[2020-07-23 15:34] VITALS: BMI 27.5
--- NOTE | 2020-07-23 16:43 | P.GSCN ---
History of Present Illness History of present illness: 74-year-old gentleman I was consulted for placement of the filter. Patient has a metastatic urethral Center also patient has a colostomy patient developed hematuria recently diagnosed with there are DVT on Delacruz stump which has been stopped and patient has received transfusion patient is under care of oncologist and recommended for filter placement Patient was seen in his room his vital signs are stable and alert Neck examination no bruit appreciated Chest is clear first and second sound present abdomen is protuberant patient has a colostomy a Vascular brachial radial femoral pulses are present Plan is discussed about the placement of the filter family is waiting for their sent to make a decision if all agree we will arrange for filter placement risk and complication discussed Past Medical History Past Medical History: Cancer, Hyperlipidemia, Hypertension, Thyroid Disorder Additional Past Medical History / Comment(s): PROSTATE CANCER WITH SEED IMPLANTS (07/06/2011), LOW THYROID, ANEMIA, HEMORRHOIDS, constipation. 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 suprapubic catheter placed Feb 19, 2020 History of Any Multi-Drug Resistant Organisms: None Reported Past Surgical History: Heart Catheterization Additional Past Surgical History / Comment(s): PROSTATE SEED IMPLANTS, COLONOSCOPY. Past Anesthesia/Blood Transfusion Reactions: No Reported Reaction, Motion Sickness Past Psychological History: No Psychological Hx Reported Smoking Status: Never smoker Past Alcohol Use History: Occasional Past Drug Use History: None Reported - Past Family History Mother Family Medical History: Hypertension Father Family Medical History: Hyperlipidemia, Hypertension Sister(s) Family Medical History: Cancer Medications and Allergies Home Medications Medication Instructions Recorded Confirmed Type Levothyroxine Sodium 125 mcg PO DAILY 11/15/14 07/21/20 History Metoprolol Tartrate 25 mg PO BID 11/15/14 07/21/20 History Isosorbide Mononitrate [Isosorbide 30 mg PO DAILY 09/13/19 07/21/20 History Mononitrate ER] polyethylene glycoL 3350 [Miralax] 17 gm PO BID 04/10/20 07/21/20 History Docusate [Colace] 100 mg PO BID 06/03/20 07/21/20 History Acetaminophen [Tylenol 8 Hour] 650 mg PO Q6H PRN 07/10/20 07/21/20 History Atorvastatin [Lipitor] 20 mg PO HS 07/10/20 07/21/20 History Famotidine [Pepcid] 20 mg PO DAILY 07/10/20 07/21/20 History Ferrous Sulfate [Iron (65 MG 325 mg PO DAILY 07/10/20 07/21/20 History Elemental)] Magnesium Oxide [Magox 400] 400 mg PO DAILY 07/10/20 07/21/20 History Melatonin 10 mg PO HS 07/10/20 07/21/20 History QUEtiapine FUMARATE [SEROquel] 25 mg PO HS 07/10/20 07/21/20 History Sennosides [Senna] 8.6 mg PO BID 07/10/20 07/21/20 History Rivaroxaban [Xarelto] 15 mg PO BID #0 07/11/20 07/21/20 Rx oxyCODONE HCL [OxyIR] 5 mg PO Q4H PRN #4 tab 07/11/20 07/21/20 Rx Methadone [Dolophine] 5 mg PO BID 07/17/20 07/21/20 History Allergies Allergy/AdvReac Type Severity Reaction Status Date / Time alendronate sodium Allergy Unknown Verified 07/21/20 21:56 Sulfa (Sulfonamide Allergy Itching/marko Verified 07/21/20 21:56 Antibiotics) h Surgical - Exam Vital Signs Temp Pulse Resp BP Pulse Ox 99.7 F H 82 18 134/113 93 L 07/21/20 16:34 07/21/20 16:34 07/21/20 16:34 07/21/20 16:34 07/21/20 16:34 Results - Labs 07/23/20 08:12 07/23/20 08:12 Abnormal Lab Results - Last 24 Hours (Table) 07/23/20 07/23/20 Range/Units 08:12 08:12 RBC 2.69 L (4.30-5.90) m/uL Hgb 8.1 L (13.0-17.5) gm/dL Hct 23.4 L (39.0-53.0) % RDW 16.6 H (11.5-15.5) % Sodium 129 L (137-145) mmol/L Potassium 5.4 H (3.5-5.1) mmol/L Carbon Dioxide 18 L (22-30) mmol/L BUN 63 H (9-20) mg/dL Creatinine 7.91 H* (0.66-1.25) mg/dL Microbiology - Last 24 Hours (Table) 07/21/20 17:25 Blood Culture - Preliminary Blood No Growth after 24 hours 07/21/20 18:36 Urine Culture - Final Urine,Voided Diabetes panel 07/23/20 Range/Units 08:12 Sodium 129 L (137-145) mmol/L Potassium 5.4 H (3.5-5.1) mmol/L Chloride 101 (98-107) mmol/L Carbon Dioxide 18 L (22-30) mmol/L BUN 63 H (9-20) mg/dL Creatinine 7.91 H* (0.66-1.25) mg/dL Glucose 79 (74-99) mg/dL Calcium 9.8 (8.4-10.2) mg/dL Calcium panel 07/23/20 Range/Units 08:12 Calcium 9.8 (8.4-10.2) mg/dL Pituitary panel 07/23/20 Range/Units 08:12 Sodium 129 L (137-145) mmol/L Potassium 5.4 H (3.5-5.1) mmol/L Chloride 101 (98-107) mmol/L Carbon Dioxide 18 L (22-30) mmol/L BUN 63 H (9-20) mg/dL Creatinine 7.91 H* (0.66-1.25) mg/dL Glucose 79 (74-99) mg/dL Calcium 9.8 (8.4-10.2) mg/dL Adrenal panel 07/23/20 Range/Units 08:12 Sodium 129 L (137-145) mmol/L Potassium 5.4 H (3.5-5.1) mmol/L Chloride 101 (98-107) mmol/L Carbon Dioxide 18 L (22-30) mmol/L BUN 63 H (9-20) mg/dL Creatinine 7.91 H* (0.66-1.25) mg/dL Glucose 79 (74-99) mg/dL Calcium 9.8 (8.4-10.2) mg/dL
--- NOTE | 2020-07-23 17:35 | PN ---
PROGRESS NOTE DATE OF SERVICE: 07/23/2020 REASON FOR FOLLOWUP: Recent pelvic abscess from a colovesical fistula. INTERVAL HISTORY: The patient is currently afebrile. The patient is more awake and alert. The patient is breathing comfortably. The patient denies having any chest pain or shortness of breath. Some lower abdominal pain from the stitches he has, but no other symptoms. PHYSICAL EXAMINATION: Blood pressure 129/64, pulse of 57, temperature 97.9. He is 98% on room air. General description is an elderly male lying in bed in no distress. RESPIRATORY SYSTEM: Unlabored breathing. Clear to auscultation anteriorly. HEART: S1, S2. Regular rate and rhythm. ABDOMEN: Soft. No tenderness. LABS: Hemoglobin 8.1, white count 9.7, BUN of 63, creatinine 7.91. DIAGNOSTIC IMPRESSION AND PLAN: Patient admitted to hospital with mental status changes, multifactorial, in this patient who did have renal insufficiency and was recently treated with Zosyn for his colovesical fistula. The patient's underlying infection seems to be adequately treated. The patient has been not running a fever. No white count. Will monitor the patient closely off antibiotic therapy and continue with supportive care. MMODL / IJN: [id number] /
--- NOTE | 2020-07-23 19:55 | P.PN ---
Progress Note - Text Progress Note Date: 07/23/20 Chief Complaint: Increasing confusion History of presenting complaint: This is a 74-year-old patient who follows with Dr. Alcala. His oncologist is Dr. Vallejo. As per oncology notes: "In January 2020 his hemoglobin was 11.6 with a low MCV, slightly elevated platelet count, iron saturation 11.2%. Colonoscopy 09/14/19 was normal, had another in September 2019, also normal. Started oral iron therapy, stopped due to constipation. He had brachytherapy for prostate cancer in 2011. He started having recurrent urinary tract infections in May 2019. He was treated with antibiotics, Christie catheter then suprapubic catheter placed 02/19/20. In February 2020 iron studies showed a low iron sat O ferritin was elevated. Patient is also experiencing unintentional weight loss and rectal pain. CT CAP 03/04/20 showed a new soft tissue mass in the prostate bed, 4.8 x 5 x 4 cm and a 2.2 cm right infrahilar node. PET scan 03/07/20 showed uptake in the infrahilar region as well as a pelvic node. PSA was less than 0.1. 03/24/20 repeat sigmoidoscopy, Mass. found, biopsy positive for urothelial carcinoma. 04/18/20 bronchoscopy of the right infrahilar node, positive for metastatic urothelial carcinoma.He was referred to [facility] for second opinion. Syste scout therapy with dose dense M VAC or cisplatin and Gemzar was recommended. 04/28/20 he started dose dense M VAC. He was unable to tolerate. He was placed on cisplatin and Gemzar. He was last seen in the office 05/28/20 after his first day 1 and 8 cycle. Complaints of persistent lower pelvic pain, diarrhea, poor oral intake. Patient was hydrated. He was in ER for hematuria 1-2 times, he was inpatient at [facility] at which time he required a colostomy due to intra-abdominal fistula. Diagnosed with a DVT of the right posterior tibial veins, peroneal vein, left gastrocnemius vein, posterior tibial veins, peroneal vein and soleus sinus on 06/05/20. He was put on Xarelto." Patient had been 6 weeks at [facility]. Then the patient was transferred to [facility] for rehab. Subsequently the patient been home. Patient has been having a fair oral intake up, 34 days ago. Has been using a walker. Lastly for his having increasing confusion. Hematuria for 3-4 days. No urine output. Has been increasingly confused. No obvious fever and chills. Hemoglobin the ER was 4.5. 2 units of blood was ordered. Patient also found to be an acute kidney injury. Most of the history is a pain by the son at the bedside. Patient himself is rather delirious. Admitted with advancing metastatic urothelial carcinoma, acute obstructive renal failure, acute severe blood loss anemia, acute delirium, hyperkalemia, hyponatremia. Patient started IV fluids. She received 3 units of blood. Today-hematuria again present. Significant. I spoke to Dr. Vallejo last night. He did communicate with Dr. bruce and they felt patient is appropriate for hospice. Hospice has been consulted. Patient is a bit more awake today bit more lucid. I spoke to patient's over the phone. I did talk to her about several aspects of the case. She has a understanding. She will talk to her children tomorrow morning and then try to take a decision from there. Patient did eat some today. For his lunch. Urology did feel patient is a candidate for nephrostomy tube. Review of systems: Was done for constitutional, cardiovascular, GI, pulmonary. relevant finding as above Active Medications Acetaminophen (Acetaminophen Tab 325 Mg Tab) 650 mg PO Q6HR PRN PRN Reason: Mild Pain or Fever > 100.5 Atorvastatin Calcium (Atorvastatin 20 Mg Tab) 20 mg PO HS [facility] Last Admin: 07/22/20 20:49 Dose: 20 mg Documented by: Docusate Sodium (Docusate 100 Mg Cap) 100 mg PO BID [facility] Last Admin: 07/23/20 08:48 Dose: 100 mg Documented by: Ferrous Sulfate (Ferrous Sulfate 325 Mg Tab) 325 mg PO DAILY [facility] Last Admin: 07/23/20 08:48 Dose: 325 mg Documented by: Sodium Chloride (Saline 0.9%) 1,000 mls @ 100 mls/hr IV .Q10H [facility] Last Admin: 07/23/20 14:22 Dose: Not Given Documented by: Isosorbide Mononitrate (Isosorbide Mononitrate Er 30 Mg Tab.Er.24h) 30 mg PO DAILY [facility] Last Admin: 07/23/20 08:49 Dose: 30 mg Documented by: Levothyroxine Sodium (Levothyroxine 125 Mcg Tab) 125 mcg PO DAILY@0630 [facility] Last Admin: 07/23/20 06:50 Dose: 125 mcg Documented by: Magnesium Oxide (Magnesium Oxide 400 Mg Tab) 400 mg PO DAILY [facility] Last Admin: 07/23/20 08:49 Dose: 400 mg Documented by: Melatonin (Melatonin 5 Mg Tablet) 10 mg PO [facility] Last Admin: 07/22/20 20:49 Dose: 10 mg Documented by: Metoprolol Tartrate (Metoprolol Tartrate 25 Mg Tab) 25 mg PO BID [facility] Last Admin: 07/23/20 08:49 Dose: 25 mg Documented by: Morphine Sulfate (Morphine Sulfate 4 Mg/Ml Syringe) 4 mg IV Q4HR PRN PRN Reason: Severe Pain Last Admin: 07/23/20 14:48 Dose: 4 mg Documented by: Naloxone HCl (Naloxone 0.4 Mg/Ml 1 Ml Vial) 0.2 mg IV Q2M PRN PRN Reason: Opioid Reversal Ondansetron HCl (Ondansetron 4 Mg/2 Ml Vial) 4 mg IVP Q8HR PRN PRN Reason: Nausea And Vomiting Oxycodone HCl (Oxycodone Hcl 5 Mg Tab) 5 mg PO Q4H PRN PRN Reason: Breakthrough Pain Last Admin: 07/23/20 17:00 Dose: 5 mg Documented by: Pantoprazole Sodium (Pantoprazole 40 Mg/10 Ml Vial) 40 mg IV DAILY [facility] Last Admin: 07/23/20 09:22 Dose: 40 mg Documented by: Polyethylene Glycol (Polyethylene Glycol 3350 17 Gm Powd.Pack) 17 gm PO BID [facility] Last Admin: 07/23/20 11:36 Dose: Not Given Documented by: Quetiapine Fumarate (Quetiapine 25 Mg Tab) 25 mg PO [facility] Last Admin: 07/22/20 20:49 Dose: 12.5 mg Documented by: Senna (Sennosides 8.6 Mg Tab) 8.6 mg PO BID [facility] Last Admin: 07/23/20 08:51 Dose: 8.6 mg Documented by: Sodium Bicarbonate (Sodium Bicarbonate Tab 650 Mg Tab) 650 mg PO TID [facility] Last Admin: 07/23/20 14:48 Dose: 650 mg Documented by: Past medical history to include: Hypertension, hyperlipidemia, hypothyroid, prostate cancer, hemorrhoids, carcinoma of the bladder with chemotherapy, suprapubic catheter since February 2020 Social history: This with his . Does use a walker. Recently discharged from [facility]. Nonsmoker. Alcohol occasional. Physical examination: VITAL SIGNS: 97.5, 61, 15, 116/65, 97% on room air GENERAL: BMI 27.4, laying in bed, tired, awake EYES: [Pupils equal. Conjunctiva pale. HEENT: External appearance of nose and normal, oral cavity grossly normal. NECK: JVD not raised; masses not palpable. HEART: First and second heart sounds are normal; no edema. LUNGS: Respiratory rate normal; decreased breath sounds. ABDOMEN: Soft, nontender, liver spleen not palpable, no masses palpable, suprapubic catheter-gross hematuria. PSYCH: Patient knows that he is in the hospital. Knows the year started was May or June NEUROLOGICAL: Cranial nerves grossly intact; no facial asymmetry, power and sensation grossly intact. LYMPHATICS: No lymph nodes palpable in the axilla and neck INVESTIGATIONS, reviewed in the clinical context: July 23: WBC 9.7 hemoglobin 8.1 potassium 5.4 sodium 129 creatinine 7.91 WBC 10.9 hemoglobin 8.5 platelets 282 potassium 5.5 bun 64 creatinine 7.45 Admitting labs: WBC 10.3 hemoglobin 4.5 platelets 322 potassium 5.6 bun 61 creatinine 6.90 Phosphorus 5.7 Albumin 2.8 Coronavirus [PCF]-not detected EKG tracing personally reviewed by me-normal sinus rhythm CT abdomen pelvis without contrast: Irregular urinary bladder wall thickening of the floor left lateral wall suggestive of tumor. Evidence of hemorrhage. Soft tissue air bubbles of the floor of the pelvis could relate to abscess involving the urethra in the prostate. Bilateral hydronephrosis and hydroureter consistent with distal ureter obstruction level of the bladder Chest x-ray film personally reviewed by me-portable/lung redman clear Assessment and plan: -Advancing metastatic urothelial carcinoma. Status post chemotherapy. Being followed by Dr. Vallejo. I discussed with him. He feels patient is appropriate for hospice -Acute obstructive renal failure due to malignancy in the bladder and blood clots. But here urology patient not a candidate for nephrostomy tube as his condition is terminal. -Acute severe blood loss anemia from severe hematuria from underlying malignancy. Patient was given 3 units of blood. -Acute delirium from metabolic encephalopathy from uremia some improvement -Hyperlipidemia Patient on Lipitor -Essential hypertension Currently blood pressures running of the lower side. Hold off metoprolol -Hypothyroid Continue with Synthroid -Suprapubic catheter placed because of urothelial cancer -Hyperkalemia due to acute kidney injury Hopefully will improve with improvement of renal function -Hyponatremia with hypovolemia with decreased solute intake Normal saline infusion -Chronic pain for which patient is on methadone. Given patient's acute delirium and severe renal failure we'll hold off the same. Lengthy discussion with the patient's today. Also the sample case porter. The will speak to the service tomorrow morning. Hospice is only on board. Prognosis poor. Total time spent today about 45 minutes with over 25 minutes of discussion
[2020-07-23] MEDS: MELATONIN 5 MG TABLET PO SCH (21:09)
[2020-07-23] MEDS: QUEtiapine 25 MG TAB PO SCH (21:09)
[2020-07-23] MEDS: ATORVASTATIN 20 MG TAB PO SCH (21:10)
[2020-07-24] MEDS: SODIUM BICARBONATE TAB 650 MG TAB PO SCH ×4 (01:38→21:31)
[2020-07-24] MEDS: LEVOTHYROXINE 125 MCG TAB PO SCH (06:37)
[2020-07-24] MEDS: SODIUM CHLORIDE 0.9% 1,000 ML IV SCH ×2 (06:37→17:46)
[2020-07-24] MEDS: ISOSORBIDE MONONITRATE ER 30 MG TAB.ER.24H PO SCH (08:55)
[2020-07-24] MEDS: SENNOSIDES 8.6 MG TAB PO SCH ×2 (08:55→21:31)
[2020-07-24] MEDS: MAGNESIUM OXIDE 400 MG TAB PO SCH (08:55)
[2020-07-24] MEDS: METOPROLOL TARTRATE 25 MG TAB PO SCH ×2 (08:55→21:31)
[2020-07-24] MEDS: PANTOPRAZOLE 40 MG/10 ML VIAL IV SCH (08:56)
[2020-07-24] MEDS: polyethylene glycoL 3350 17 GM POWD.PACK PO SCH ×2 (08:56→21:31)
[2020-07-24] MEDS: DOCUSATE 100 MG CAP PO SCH ×2 (08:59→21:32)
[2020-07-24] MEDS: FERROUS SULFATE 325 MG TAB PO SCH (08:59)
--- NOTE | 2020-07-24 10:29 | P.PN ---
Subjective Patient is seen in follow-up for acute kidney injury. Urine output 1300 mL in the last 24 hours. Denies chest pain or shortness of breath. Labs from today pending. Not a candidate for nephrostomy tube placement per urology. Vital signs are stable. General: The patient appeared well nourished and normally developed. HEENT: Head exam is unremarkable. Neck is without jugular venous distension. LUNGS: Breath sounds decreased. HEART: Rate and Rhythm are regular. ABDOMEN: Soft, no distention. EXTREMITITES: No edema. Objective - Vital Signs Vital signs: Vital Signs Temp 98.7 F 07/24/20 08:12 Pulse 71 07/24/20 08:30 Resp 18 07/24/20 08:30 BP 151/70 07/24/20 08:12 Pulse Ox 98 07/24/20 08:12 Intake & Output 07/23/20 07/24/20 07/24/20 18:59 06:59 18:59 Intake Total 980 1000 420 Output Total 1300 Balance 980 -300 420 Weight 82.2 kg 82.2 kg Intake: IV 800 0.9 @ 100 mL/hr 800 Intake, IV Titration 1000 Amount Sodium Chloride 0.9% 1, 1000 000 ml @ 100 mls/hr IV . Q10H [facility] Rx#:[id number] Oral 180 420 Output: Urine 1300 Suprapubic 500 Other: Voiding Method Indwelling Catheter Indwelling Catheter Indwelling Catheter - Labs CBC & Chem 7: 07/23/20 08:12 07/23/20 08:12 Labs: Microbiology - Last 24 Hours (Table) 07/21/20 17:25 Blood Culture - Preliminary Blood No Growth after 48 hours Assessment and Plan Plan: Assessment: 1. Acute kidney injury secondary to ATN from acute blood loss anemia and obstructive uropathy. Creatinine 6.9 on admission and is 7.9 as of yesterday. Urine output 1.3 L in the last 24 hours. 2. Acute blood loss anemia status post blood transfusions. Hemoglobin 8.1 as of yesterday. 3. Bilateral hydronephrosis. Urology following. Not a candidate for nephrostomy tubes per urology. 4. Hyponatremia secondary to acute kidney injury. 5. Metabolic acidosis secondary to acute kidney injury and IV fluids maintained on oral bicarbonate. 6. History of prostate and urothelial cancer. 7. Mild hyperkalemia secondary to acute kidney injury and metabolic acidosis. 8. Rule out chronic kidney disease. Patient's creatinine in April 2020 was 1.0 since then it's been in the range of 1.3-1.9. Plan: Decrease rate of normal saline to 50 mL an hour. Encourage oral intake. Avoid nephrotoxins. Overall prognosis is poor. Patient is not a candidate for long-term renal replacement therapy due to advanced malignancy. Hospice is being considered. If family and patient choose not to proceed with hospice, then obstruction will need to be relieved.
[2020-07-24 12:14] LABS: Anisocytosis Slight; Basophils % (A) 0 %; Eosinophils # (A) 0.2 k/uL (0-0.7); Eosinophils % (A) 2 %; HCT 26.1 % (39.0-53.0); HGB 8.3 gm/dL (13.0-17.5); Hypochromasia Slight; Lymphocytes # (A) 1.5 k/uL (1.0-4.8); Lymphocytes % (A) 16 %; MCH 28.3 pg (25.0-35.0); MCHC 31.6 g/dL (31.0-37.0); MCV 89.5 fL (80.0-100.0); Mean Platelet Volume 7.1; Monocytes # (A) 0.6 k/uL (0-1.0); Monocytes % (A) 6 %; Neutrophils # (A) 6.9 k/uL (1.3-7.7); Neutrophils % (A) 73 %; Platelet Count 312 k/uL (150-450); Poikilocytosis Slight; RBC 2.92 m/uL (4.30-5.90); RDW 16.8 % (11.5-15.5); WBC 9.4 k/uL (3.8-10.6)
[2020-07-24 12:21] LABS: INR 0.9 (<1.2); Prothrombin Time 10.1 sec (9.0-12.0)
[2020-07-24 12:39] LABS: Calcium 9.8 mg/dL (8.4-10.2); Magnesium 2.2 mg/dL (1.6-2.3); Potassium 5.9 mmol/L (3.5-5.1)
[2020-07-24] MEDS: MORPHINE SULFATE 4 MG/ML SYRINGE IV PRN ×2 (12:46→16:34)
--- NOTE | 2020-07-24 13:34 | P.PN ---
Progress Note - Text Progress Note Date: 07/24/20 No acute overnight events, hemoglobin still stable. He's has worsening creatinine this a.m. I discussed with them the option of doing an nephrostomy tube. Family declined he indicated they are leaning toward Comfort Care and don't want to proceed with any nephrostomy tube placement at this time. They understood that his renal function will worsen and at this time both patient and his want to proceed with comfort measures rather than aggressive intervention in terms of his renal failure. He continues to have hematuria, but able to irrigate the catheter with retrieval of some old blood clots. -Continue to hold anticoagulation --Irrigate SPT q 4 PRN -If Family changes their mind and want to proceed with treatment for his LETICIA, then we can proceed with bilateral nephrostomy tube placement by IR. But I did discussed with them that his overall prognosis is poor. At this time both patient and his want to pursue comfort measures .
[2020-07-24] MEDS ORDERED: IV FLUID CONTINUATION 1,000 ML IV ONE (13:40)
[2020-07-24] MEDS ORDERED: LIDOCAINE 1% INJ 10MG/ML (20 ML MDV) ONE (13:50)
[2020-07-24] MEDS ORDERED: MIDAZOLAM 2 MG/2 ML VIAL IVP ONE (13:55)
[2020-07-24] MEDS ORDERED: LIDOCAINE 1% INJ 10MG/ML (20 ML MDV) SQ ONE (13:57)
[2020-07-24] MEDS ORDERED: IOPAMIDOL-250 50ML BTL INTRAARTER ONE (14:16)
--- NOTE | 2020-07-24 15:18 | PN ---
PROGRESS NOTE DATE OF SERVICE: 07/24/2020 REASON FOR FOLLOWUP: Recent history of pelvic abscess. INTERVAL HISTORY: The patient remains to be afebrile. The patient is more awake and alert. He is breathing comfortably. Denies having any chest pain, shortness of breath or cough. No worsening abdominal pain. No nausea, no vomiting. Did have significant hematuria. PHYSICAL EXAMINATION: Blood pressure 134/76, pulse of 68, temperature 98.2. He is 98% on room air. General description is an elderly male lying in bed in no distress. RESPIRATORY SYSTEM: Unlabored breathing, clear to auscultation anteriorly. HEART: S1, S2. Regular rate and rhythm. ABDOMEN: Soft, no tenderness. LABS: Hemoglobin 8.3, white count 9.4, BUN of 65, creatinine 8.41. DIAGNOSTIC IMPRESSION AND PLAN: The patient admitted to the hospital with mental status changes, more likely related to his worsening renal failure in this patient has received adequate antibiotic for his recent episode of intraabdominal abscess and clinically not behaving as an abscess with no fever or elevated white count. Patient is currently off antibiotic and culture negative. ID service will sign off. Please call back with any questions for infectious disease care. by the bedside. Questions were answered. MMODL / IJN: [id number] /
--- NOTE | 2020-07-24 16:46 | P.PN ---
Subjective Progress Note Date: 07/24/20 Principal diagnosis: sequela of metastatic bladder cancer In f/u today pt is lucid intermittently, he will fall asleep and jolt himself awake, he is cognitively intact at times, intermittently aggressive Objective - Vital Signs Vital signs: Vital Signs Temp 97.7 F 07/24/20 16:19 Pulse 70 07/24/20 16:22 Resp 16 07/24/20 16:22 BP 139/70 07/24/20 16:22 Pulse Ox 96 07/24/20 16:22 Intake & Output 07/23/20 07/24/20 07/24/20 18:59 06:59 18:59 Intake Total 980 1000 445 Output Total 1300 225 Balance 980 -300 220 Weight 82.2 kg 82.2 kg Intake: IV 800 25 0.9 @ 100 mL/hr 800 Intake, IV Titration 1000 Amount Sodium Chloride 0.9% 1, 1000 000 ml @ 50 mls/hr IV . Q20H [facility] Rx#:[id number] Oral 180 420 Output: Urine 1300 225 Suprapubic 500 Other: Voiding Method Indwelling Catheter Indwelling Catheter Indwelling Catheter - Exam Resp are shallow, pt is agitated at times, he does respond appropriately at other times. No acute distress - Labs CBC & Chem 7: 07/24/20 11:31 07/24/20 11:31 Labs: Abnormal Lab Results - Last 24 Hours (Table) 07/24/20 07/24/20 Range/Units 11:31 11:31 RBC 2.92 L (4.30-5.90) m/uL Hgb 8.3 L (13.0-17.5) gm/dL Hct 26.1 L (39.0-53.0) % RDW 16.8 H (11.5-15.5) % Sodium 128 L (137-145) mmol/L Potassium 5.9 H (3.5-5.1) mmol/L Carbon Dioxide 15 L (22-30) mmol/L BUN 65 H (9-20) mg/dL Creatinine 8.41 H* (0.66-1.25) mg/dL Glucose 102 H (74-99) mg/dL Microbiology - Last 24 Hours (Table) 07/21/20 17:25 Blood Culture - Preliminary Blood No Growth after 48 hours Assessment and Plan (1) Severe anemia Current Visit: Yes Status: Acute Priority: High Code(s): D64.9 - ANEMIA, UNSPECIFIED SNOMED Code(s): 197697042 (2) Acute abdominal pain Current Visit: Yes Status: Acute Priority: High Code(s): R10.9 - UNSPECIFIED ABDOMINAL PAIN SNOMED Code(s): 025384066 (3) Fistula Current Visit: Yes Status: Acute Priority: High Code(s): L98.8 - OTH DISRD OF THE SKIN AND SUBCUTANEOUS TISSUE SNOMED Code(s): 600600967 (4) Hematuria Current Visit: Yes Status: Acute Priority: High Code(s): R31.9 - HEMATURIA, UNSPECIFIED SNOMED Code(s): 14149038 (5) DVT (deep venous thrombosis) Narrative/Plan: Diagnosed 06/05/20, bilateral. Patient has been on anticoagulation with Xarelto. Last dose was on Tuesday. Due to gross bleeding stop anticoagulation. Due to recent DVT and likely not going to be able to anticoagulate recommendation is for IVC filter placement. Placed today at 1pm. Current Visit: Yes Status: Acute Priority: High Code(s): I82.409 - ACUTE EMBOLISM AND THOMBOS UNSP DEEP VN UNSP LOWER EXTREMITY SNOMED Code(s): 029027100 Plan: Pt son on phone. We spent >30 min reviewing pt clinical course up to now. Reviewed poor prognosis. Discussed life expectancy measured in days, maybe a week or 2. Highly recommended hospice facility to aid in the care of pt. Concern is access to pt with covid restrictions. The son is going to contact hospice to review their policy. Pt agrees with being kept comfortable. Will inform staff of decision. Time with Patient: Greater than 30 (counseling adn coordinating care)
--- NOTE | 2020-07-24 16:49 | IR ---
Fluoroscopy HISTORY: Inferior vena cava filter placement 3.3 minutes fluoroscopy time supplied to the referring clinician. 464 intraoperative C-arm images do cument the procedure. See dictated report from vascular surgery.
[2020-07-24] MEDS: ATORVASTATIN 20 MG TAB PO SCH (21:30)
[2020-07-24] MEDS: QUEtiapine 25 MG TAB PO SCH (21:31)
[2020-07-24] MEDS: MELATONIN 5 MG TABLET PO SCH (21:31)
--- NOTE | 2020-07-24 21:37 | P.PN ---
Progress Note - Text Progress Note Date: 07/24/20 Chief Complaint: Increasing confusion History of presenting complaint: This is a 74-year-old patient who follows with Dr. Alcala. His oncologist is Dr. Vallejo. As per oncology notes: "In January 2020 his hemoglobin was 11.6 with a low MCV, slightly elevated platelet count, iron saturation 11.2%. Colonoscopy 09/14/19 was normal, had another in September 2019, also normal. Started oral iron therapy, stopped due to constipation. He had brachytherapy for prostate cancer in 2011. He started having recurrent urinary tract infections in May 2019. He was treated with antibiotics, Christie catheter then suprapubic catheter placed 02/19/20. In February 2020 iron studies showed a low iron sat O ferritin was elevated. Patient is also experiencing unintentional weight loss and rectal pain. CT CAP 03/04/20 showed a new soft tissue mass in the prostate bed, 4.8 x 5 x 4 cm and a 2.2 cm right infrahilar node. PET scan 03/07/20 showed uptake in the infrahilar region as well as a pelvic node. PSA was less than 0.1. 03/24/20 repeat sigmoidoscopy, Mass. found, biopsy positive for urothelial carcinoma. 04/18/20 bronchoscopy of the right infrahilar node, positive for metastatic urothelial carcinoma.He was referred to [facility] for second opinion. Syste scout therapy with dose dense M VAC or cisplatin and Gemzar was recommended. 04/28/20 he started dose dense M VAC. He was unable to tolerate. He was placed on cisplatin and Gemzar. He was last seen in the office 05/28/20 after his first day 1 and 8 cycle. Complaints of persistent lower pelvic pain, diarrhea, poor oral intake. Patient was hydrated. 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 Diagnosed with a DVT of the right posterior tibial veins, peroneal vein, left gastrocnemius vein, posterior tibial veins, peroneal vein and soleus sinus on 06/05/20. He was put on Xarelto." Patient had been 6 weeks at [place]. Then the patient was transferred to [facility] for rehab. Subsequently the patient been home. Patient has been having a fair oral intake up, 34 days ago. Has been using a walker. Lastly for his having increasing confusion. Hematuria for 3-4 days. No urine output. Has been increasingly confused. No obvious fever and chills. Hemoglobin the ER was 4.5. 2 units of blood was ordered. Patient also found to be an acute kidney injury. Most of the history is a pain by the son at the bedside. Patient himself is rather delirious. Admitted with advancing metastatic urothelial carcinoma, acute obstructive renal failure, acute severe blood loss anemia, acute delirium, hyperkalemia, hyponatremia. Patient started IV fluids. She received 3 units of blood. Patient seemed to the oncology team but felt appropriate for hospice. Follow urology felt that patient will be not wanted to have any nephrostomy tube placed. Patient started having hematuria again. I spoke to patient's at length. She'll be talking heart sounds.. Looking into hospice Today: at the bedside. Has been in touch with the hospice. Laying in bed. Slight discomfort. No pain. Hematuria present. Discussed with the pillowcase maker. She called me back later that hospice also possibly take the patient tomorrow. Review of systems: Was done for constitutional, cardiovascular, GI, pulmonary. relevant finding as above Active Medications Acetaminophen (Acetaminophen Tab 325 Mg Tab) 650 mg PO Q6HR PRN PRN Reason: Mild Pain or Fever > 100.5 Atorvastatin Calcium (Atorvastatin 20 Mg Tab) 20 mg PO HS [facility] Last Admin: 07/24/20 21:30 Dose: 20 mg Documented by: Docusate Sodium (Docusate 100 Mg Cap) 100 mg PO BID [facility] Last Admin: 07/24/20 21:32 Dose: 100 mg Documented by: Ferrous Sulfate (Ferrous Sulfate 325 Mg Tab) 325 mg PO DAILY [facility] Last Admin: 07/24/20 08:59 Dose: 325 mg Documented by: Sodium Chloride (Saline 0.9%) 1,000 mls @ 50 mls/hr IV .Q20H [facility] Last Admin: 07/24/20 17:46 Dose: 50 mls/hr Documented by: Isosorbide Mononitrate (Isosorbide Mononitrate Er 30 Mg Tab.Er.24h) 30 mg PO DAILY [facility] Last Admin: 07/24/20 08:55 Dose: 30 mg Documented by: Levothyroxine Sodium (Levothyroxine 125 Mcg Tab) 125 mcg PO DAILY@0630 [facility] Last Admin: 07/24/20 06:37 Dose: 125 mcg Documented by: Magnesium Oxide (Magnesium Oxide 400 Mg Tab) 400 mg PO DAILY [facility] Last Admin: 07/24/20 08:55 Dose: 400 mg Documented by: Melatonin (Melatonin 5 Mg Tablet) 10 mg PO [facility] Last Admin: 07/24/20 21:31 Dose: 10 mg Documented by: Metoprolol Tartrate (Metoprolol Tartrate 25 Mg Tab) 25 mg PO BID [facility] Last Admin: 07/24/20 21:31 Dose: 25 mg Documented by: Morphine Sulfate (Morphine Sulfate 4 Mg/Ml Syringe) 4 mg IV Q4HR PRN PRN Reason: Severe Pain Last Admin: 07/24/20 16:34 Dose: 4 mg Documented by: Naloxone HCl (Naloxone 0.4 Mg/Ml 1 Ml Vial) 0.2 mg IV Q2M PRN PRN Reason: Opioid Reversal Ondansetron HCl (Ondansetron 4 Mg/2 Ml Vial) 4 mg IVP Q8HR PRN PRN Reason: Nausea And Vomiting Oxycodone HCl (Oxycodone Hcl 5 Mg Tab) 5 mg PO Q4H PRN PRN Reason: Breakthrough Pain Last Admin: 07/24/20 21:31 Dose: 5 mg Documented by: Pantoprazole Sodium (Pantoprazole 40 Mg/10 Ml Vial) 40 mg IV DAILY [facility] Last Admin: 07/24/20 08:56 Dose: 40 mg Documented by: Polyethylene Glycol (Polyethylene Glycol 3350 17 Gm Powd.Pack) 17 gm PO BID [facility] Last Admin: 07/24/20 21:31 Dose: 17 gm Documented by: Quetiapine Fumarate (Quetiapine 25 Mg Tab) 25 mg PO [facility] Last Admin: 07/24/20 21:31 Dose: 25 mg Documented by: Senna (Sennosides 8.6 Mg Tab) 8.6 mg PO BID [facility] Last Admin: 07/24/20 21:31 Dose: 8.6 mg Documented by: Sodium Bicarbonate (Sodium Bicarbonate Tab 650 Mg Tab) 650 mg PO TID [facility] Last Admin: 07/24/20 21:31 Dose: 650 mg Documented by: Past medical history to include: Hypertension, hyperlipidemia, hypothyroid, prostate cancer, hemorrhoids, carcinoma of the bladder with chemotherapy, suprapubic catheter since February 2020 Social history: This with his . Does use a walker. Recently discharged from [facility]. Nonsmoker. Alcohol occasional. Physical examination: VITAL SIGNS: 97.7, 96, 16, 155 with 70, 95% room air GENERAL: BMI 27.4, laying in bed, tired, awake EYES: [Pupils equal. Conjunctiva pale. HEENT: External appearance of nose and normal, oral cavity grossly normal. NECK: JVD not raised; masses not palpable. HEART: First and second heart sounds are normal; no edema. LUNGS: Respiratory rate normal; decreased breath sounds. ABDOMEN: Soft, nontender, liver spleen not palpable, no masses palpable, suprapubic catheter-gross hematuria. PSYCH: Patient knows that he is in the hospital. Knows the year started was May or June INVESTIGATIONS, reviewed in the clinical context: July 24: WBC 9.4 hemoglobin 8.3 potassium 5.9 creatinine 8.41 July 23: WBC 9.7 hemoglobin 8.1 potassium 5.4 sodium 129 creatinine 7.91 WBC 10.9 hemoglobin 8.5 platelets 282 potassium 5.5 bun 64 creatinine 7.45 Admitting labs: WBC 10.3 hemoglobin 4.5 platelets 322 potassium 5.6 bun 61 creatinine 6.90 Phosphorus 5.7 Albumin 2.8 Coronavirus [PCF]-not detected EKG tracing personally reviewed by me-normal sinus rhythm CT abdomen pelvis without contrast: Irregular urinary bladder wall thickening of the floor left lateral wall suggestive of tumor. Evidence of hemorrhage. Soft tissue air bubbles of the floor of the pelvis could relate to abscess involving the urethra in the prostate. Bilateral hydronephrosis and hydroureter consistent with distal ureter obstruction level of the bladder Chest x-ray film personally reviewed by me-portable/lung redman clear Assessment and plan: -Advancing metastatic urothelial carcinoma. Status post chemotherapy. Being followed by Dr. Vallejo. I discussed with him. Plan is to proceed with hospice -Acute obstructive renal failure due to malignancy in the bladder and blood clots. But here urology patient not a candidate for nephrostomy tube as his condition is terminal. -Acute severe blood loss anemia from severe hematuria from underlying malignancy. Patient was given 3 units of blood. -Acute delirium from metabolic encephalopathy from uremia some improvement -Hyperlipidemia Patient on Lipitor -Essential hypertension Currently blood pressures running of the lower side. Hold off metoprolol -Hypothyroid Continue with Synthroid -Suprapubic catheter placed because of urothelial cancer -Hyperkalemia due to acute kidney injury Hopefully will improve with improvement of renal function -Hyponatremia with hypovolemia with decreased solute intake Normal saline infusion -Chronic pain for which patient is on methadone. Given patient's acute delirium and severe renal failure we'll hold off the same. Hospice upon discharge is being of age. Looks like patient will be discharged to the hospice house. Total time spent today about 50 minutes with over 30 minutes of discussion. Spoke to the at the bedside.
[2020-07-25] MEDS: MORPHINE SULFATE 4 MG/ML SYRINGE IV PRN ×3 (04:49→15:19)
[2020-07-25] MEDS: LEVOTHYROXINE 125 MCG TAB PO SCH (05:01)
[2020-07-25 08:45] VITALS: RESP 15
[2020-07-25] MEDS: SODIUM BICARBONATE TAB 650 MG TAB PO SCH (08:50)
[2020-07-25] MEDS: SENNOSIDES 8.6 MG TAB PO SCH (08:50)
[2020-07-25] MEDS: METOPROLOL TARTRATE 25 MG TAB PO SCH (08:50)
[2020-07-25] MEDS: ISOSORBIDE MONONITRATE ER 30 MG TAB.ER.24H PO SCH (08:50)
[2020-07-25] MEDS: SODIUM CHLORIDE 0.9% 1,000 ML IV SCH (08:51)
--- NOTE | 2020-07-25 09:01 | P.PN ---
Progress Note - Text Progress Note Date: 07/25/20 No acute overnigth event. Family wants to proceed with Hospice, Continues to have hematuria, hgb stable. Christie irrigated this am with return of old blood clots -Irrigate SPT q 4 PRN -If Family changes their mind and want to proceed with treatment for his LETICIA, then we can proceed with bilateral nephrostomy tube placement by IR. But I did discussed with them that his overall prognosis is poor. At this time both patient and his want to pursue comfort measures and proceed with hospice.
[2020-07-25] MEDS: polyethylene glycoL 3350 17 GM POWD.PACK PO SCH (09:03)
[2020-07-25 12:34] VITALS: BP 128/76; PULSE 66; TEMP 97.8
--- NOTE | 2020-07-26 00:30 | P.DS ---
Providers Date of admission: 07/21/20 21:09 Expected date of discharge: 07/25/20 Attending physician: Keegan Pollock Consults: 07/21/20 21:11 Consult Physician Routine Consulting Provider: Grover Hardy Consult Reason/Comments: bladder cancer, hematuria Do you want consulting provider notified?: Yes Consult Physician Routine Consulting Provider: Светлана Wen Consult Reason/Comments: cancer complications Do you want consulting provider notified?: Yes 07/22/20 10:44 Consult Physician Routine Consulting Provider: Aly Martin Consult Reason/Comments: fistula Do you want consulting provider notified?: Yes 07/22/20 15:46 Consult Physician Routine Consulting Provider: Anil Perry Consult Reason/Comments: LETICIA Do you want consulting provider notified?: Yes 07/23/20 14:36 Consult Physician Routine Consulting Provider: Jose Richmond Consult Reason/Comments: IVC FILTER PLACEMENT Do you want consulting provider notified?: Yes Primary care physician: [facility] Course: Chief Complaint: Increasing confusion History of presenting complaint: This is a 74-year-old patient who follows with Dr. Alcala. His oncologist is Dr. Vallejo. As per oncology notes: "In January 2020 his hemoglobin was 11.6 with a low MCV, slightly elevated platelet count, iron saturation 11.2%. Colonoscopy 09/14/19 was normal, had another in September 2019, also normal. Started oral iron therapy, stopped due to constipation. He had brachytherapy for prostate cancer in 2011. He started having recurrent urinary tract infections in May 2019. He was treated with antibiotics, Christie catheter then suprapubic catheter placed 02/19/20. In February 2020 iron studies showed a low iron sat O ferritin was elevated. Patient is also experiencing unintentional weight loss and rectal pain. CT CAP 03/04/20 showed a new soft tissue mass in the prostate bed, 4.8 x 5 x 4 cm and a 2.2 cm right infrahilar node. PET scan 03/07/20 showed uptake in the infrahilar region as well as a pelvic node. PSA was less than 0.1. 03/24/20 repeat sigmoidoscopy, Mass. found, biopsy positive for urothelial carcinoma. 04/18/20 bronchoscopy of the right infrahilar node, positive for metastatic urothelial carcinoma.He was referred to [facility] for second opinion. Systemic therapy with dose dense M VAC or cisplatin and Gemzar was recommended. 04/28/20 he started dose dense M VAC. He was unable to tolerate. He was placed on cisplatin and Gemzar. He was last seen in the office 05/28/20 after his first day 1 and 8 cycle. Complaints of persistent lower pelvic pain, diarrhea, poor oral intake. Patient was hydrated. 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 Diagnosed with a DVT of the right posterior tibial veins, peroneal vein, left gastrocnemius vein, posterior tibial veins, peroneal vein and soleus sinus on 06/05/20. He was put on Xarelto." Patient had been 6 weeks at [place]. Then the patient was transferred to [facility] for rehab. Subsequently the patient been home. Patient has been having a fair oral intake up, 34 days ago. Has been using a walker. Lastly for his having increasing confusion. Hematuria for 3-4 days. No urine output. Has been increasingly confused. No obvious fever and chills. Hemoglobin the ER was 4.5. 2 units of blood was ordered. Patient also found to be an acute kidney injury. Most of the history is a pain by the son at the bedside. Patient himself is rather delirious. Admitted with advancing metastatic urothelial carcinoma, acute obstructive renal failure, acute severe blood loss anemia, acute delirium, hyperkalemia, hyponatremia. Patient started IV fluids. She received 3 units of blood. Patient seemed to the oncology team but felt appropriate for hospice. Follow urology felt that patient will be not wanted to have any nephrostomy tube placed. Patient started having hematuria again. I spoke to patient's at length. She'll be talking heart sounds.. Looking into hospice Today: at the bedside. Patient be going to [facility] home. She has no further questions. Patient is somewhat delirious. Spoke to the case loader operator. Discussion and discharge planning more than 35 minutes Consultation: Dr. london from urology Dr. Pro from oncology Dr. Martin from RANDI Perry from nephrology Dr. Jose Govea from vascular Past medical history to include: Hypertension, hyperlipidemia, hypothyroid, prostate cancer, hemorrhoids, carcinoma of the bladder with chemotherapy, suprapubic catheter since February 2020 Social history: This with his . Does use a walker. Recently discharged from [facility]. Nonsmoker. Alcohol occasional. Physical examination: VITAL SIGNS: 97.6, 66, 15, 1 28 x 76, 100% room air GENERAL: BMI 27.4, laying in bed, tired, a bit delirious EYES: [Pupils equal. Conjunctiva pale. NECK: JVD not raised; masses not palpable. HEART: First and second heart sounds are normal; no edema. LUNGS: Respiratory rate normal; decreased breath sounds. ABDOMEN: Soft, nontender, liver spleen not palpable, no masses palpable, suprapubic catheter-gross hematuria. PSYCH: A bit delirious INVESTIGATIONS, reviewed in the clinical context: July 24: WBC 9.4 hemoglobin 8.3 potassium 5.9 creatinine 8.41 July 23: WBC 9.7 hemoglobin 8.1 potassium 5.4 sodium 129 creatinine 7.91 WBC 10.9 hemoglobin 8.5 platelets 282 potassium 5.5 bun 64 creatinine 7.45 Admitting labs: WBC 10.3 hemoglobin 4.5 platelets 322 potassium 5.6 bun 61 creatinine 6.90 Phosphorus 5.7 Albumin 2.8 Coronavirus [PCF]-not detected EKG tracing personally reviewed by me-normal sinus rhythm CT abdomen pelvis without contrast: Irregular urinary bladder wall thickening of the floor left lateral wall suggestive of tumor. Evidence of hemorrhage. Soft tissue air bubbles of the floor of the pelvis could relate to abscess involving the urethra in the prostate. Bilateral hydronephrosis and hydroureter consistent with distal ureter obstruction level of the bladder Chest x-ray film personally reviewed by me-portable/lung redman clear Assessment and plan: -Advancing metastatic urothelial carcinoma. Status post chemotherapy. Being followed by Dr. Vallejo. I discussed with him. Plan is to proceed with hospice -Acute obstructive renal failure due to malignancy in the bladder and blood clots. But here urology patient not a candidate for nephrostomy tube as his condition is terminal. -Acute severe blood loss anemia from severe hematuria from underlying malignancy. Patient was given 3 units of blood. -Acute delirium from metabolic encephalopathy from uremia some improvement -Hyperlipidemia Patient on Lipitor -Essential hypertension Currently blood pressures running of the lower side. Hold off metoprolol -Hypothyroid Continue with Synthroid -Suprapubic catheter placed because of urothelial cancer -Hyperkalemia due to acute kidney injury Hopefully will improve with improvement of renal function -Hyponatremia with hypovolemia with decreased solute intake Normal saline infusion -Chronic pain for which patient is on methadone. Given patient's acute delirium and severe renal failure we'll hold off the same. Disposition: Hospice home in [place] Patient Condition at Discharge: Poor Plan - Discharge Summary Discharge Rx Participant: No New Discharge Prescriptions: Continue Levothyroxine Sodium 125 mcg PO DAILY Metoprolol Tartrate 25 mg PO BID Isosorbide Mononitrate [Isosorbide Mononitrate ER] 30 mg PO DAILY oxyCODONE HCL [OxyIR] 5 mg PO Q4H PRN #4 tab PRN Reason: Breakthrough Pain QUEtiapine FUMARATE [SEROquel] 25 mg PO HS Discontinued polyethylene glycoL 3350 [Miralax] 17 gm PO BID Docusate [Colace] 100 mg PO BID Sennosides [Senna] 8.6 mg PO BID Melatonin 10 mg PO HS Magnesium Oxide [Magox 400] 400 mg PO DAILY Atorvastatin [Lipitor] 20 mg PO HS Rivaroxaban [Xarelto] 15 mg PO BID #0 Methadone [Dolophine] 5 mg PO BID Acetaminophen [Tylenol 8 Hour] 650 mg PO Q6H PRN PRN Reason: Pain Or Fever > 100.5 Ferrous Sulfate [Iron (65 MG Elemental)] 325 mg PO DAILY Famotidine [Pepcid] 20 mg PO DAILY Discharge Medication List Levothyroxine Sodium 125 mcg PO DAILY 11/15/14 [History] Metoprolol Tartrate 25 mg PO BID 11/15/14 [History] Isosorbide Mononitrate [Isosorbide Mononitrate ER] 30 mg PO DAILY 09/13/19 [His tory] QUEtiapine FUMARATE [SEROquel] 25 mg PO HS 07/10/20 [History] oxyCODONE HCL [OxyIR] 5 mg PO Q4H PRN #4 tab 07/11/20 [Rx] Follow up Appointment(s)/Referral(s): Satish Alcala DO [Primary Care Provider] - 1-2 days Discharge Disposition: HOME WITH HOSPICE
== END 2020-07-25 15:34 | disposition hospice, inpatient (51) | DRG 686 ==
LOC: EC 16:33 → 3SCARD 21:09
PROVIDERS: ADMIT Hospitalist; ATTEND Hospitalist
PROC: 30233N1 Transfusion of Nonautologous Red Blood Cells into Peripheral Vein, Percutaneous Approach (ICD-10-PCS; principal; 2020-07-22)
PROC: 06H03DZ Insertion of Intraluminal Device into Inferior Vena Cava, Percutaneous Approach (ICD-10-PCS; 2020-07-24)
DX: C67.9 Malignant neoplasm of bladder, unspecified (principal); G93.41 Metabolic encephalopathy; N17.0 Acute kidney failure with tubular necrosis; K65.1 Peritoneal abscess; F05 Delirium due to known physiological condition; E87.1 Hypo-osmolality and hyponatremia; D62 Acute posthemorrhagic anemia; E87.2 Acidosis; N13.6 Pyonephrosis; C79.89 Secondary malignant neoplasm of other specified sites; E78.5 Hyperlipidemia, unspecified; E87.8 Other disorders of electrolyte and fluid balance, not elsewhere classified; E83.39 Other disorders of phosphorus metabolism; E86.0 Dehydration; E03.9 Hypothyroidism, unspecified; E83.52 Hypercalcemia; I10 Essential (primary) hypertension; E87.5 Hyperkalemia; E86.1 Hypovolemia; L59.8 Other specified disorders of the skin and subcutaneous tissue related to radiation; Z51.5 Encounter for palliative care; Y84.2 Radiological procedure and radiotherapy as the cause of abnormal reaction of the patient, or of later complication, without mention of misadventure at the time of the procedure; Z20.822 Contact with and (suspected) exposure to COVID-19; D63.0 Anemia in neoplastic disease; G89.29 Other chronic pain; L98.492 Non-pressure chronic ulcer of skin of other sites with fat layer exposed; K59.00 Constipation, unspecified; Z79.01 Long term (current) use of anticoagulants; Z79.890 Hormone replacement therapy; Z79.891 Long term (current) use of opiate analgesic; Z79.899 Other long term (current) drug therapy; Z85.46 Personal history of malignant neoplasm of prostate; Z87.19 Personal history of other diseases of the digestive system; Z82.49 Family history of ischemic heart disease and other diseases of the circulatory system; Z80.9 Family history of malignant neoplasm, unspecified; Z88.2 Allergy status to sulfonamides; Z88.8 Allergy status to other drugs, medicaments and biological substances; Z86.718 Personal history of other venous thrombosis and embolism; Z87.440 Personal history of urinary (tract) infections; Z43.3 Encounter for attention to colostomy; Z83.49 Family history of other endocrine, nutritional and metabolic diseases
CPT/HCPCS: 36415; 37191; 51798; 71045; 74176; 80048; 80053; 81001; 83605; 83735; 84100; 84443; 85025; 85027; 85610; 85730; 86850; 86900; 86901; 86920; 87040; 87086; 87635; 93005; 96361; 96374; 99285